=== PATIENT | female | born 1940 | race Caucasian/White ===

== ENCOUNTER 2018-07-14 10:08 | Inpatient (IN) | payer OTHER ==
[2018-07-11 16:28] VITALS: BMI 31.3
[~2018-07-14] VITALS: Ht 144.8 cm; Wt 65.9 kg
[2018-07-14] VITALS (25 sets, daily range): BP systolic 70–130; BP diastolic 41–75; PULSE 64–89; RESP 14–25; Ht 144.8 cm; Wt 65.9 kg
[~2018-07-14 10:08] MED LIST: BUPR-165 PO; EPHEDrine SULFATE 50 MG/5 ML SYG ONE; ESCI10TA PO; FOLI-49 PO; HYDR200T5 PO; LACT10SO5 PO; LACTATED RINGER'S 1,000 ML IV* ONE; LEVO75TA5 PO; LOSA50TA14 PO; OMEP40CA6 PO; PRED50TA PO; metroNIDAZOLE 500 MG/NS (PMX) 100 ML IVPB SCH
[2018-07-14] MEDS ORDERED: HYDR200T5 PO (11:27)
[2018-07-14] MEDS ORDERED: PRED1TAB2 PO (11:27)
[2018-07-14] MEDS ORDERED: MET25 PO (11:28)
[2018-07-14] MEDS ORDERED: ACET-2047 PO (11:38)
[2018-07-14] MEDS ORDERED: CHOL100062 PO (11:38)
[2018-07-14] MEDS ORDERED: NIAC500T81 PO (11:39)
[2018-07-14] MEDS ORDERED: LORA10TA3 PO (11:40)
[2018-07-14] MEDS ORDERED: SENN-120 PO (11:40)
[2018-07-14] MEDS ORDERED: CYAN500T46 PO (11:40)
--- NOTE | 2018-07-14 12:57 | PREAC ---
Date/Time of Note Date/Time of Note DATE: 07/14/18 TIME: 12:56 Anesthesia Eval and Record Evaluation Time Pre-Procedure Interview DATE: 07/14/18 TIME: 12:56 Age 77 Sex female NPO: 8 hrs Preoperative diagnosis Intestinal Obstruction Planned procedure Laparoscopic Assisted sigmoid resection Past Medical History Past Medical History: Includes Cardio: HTN Endo: Hypothyroid Musculoskeletal: Rheumatoid arthritis Psych: Depression Surgery & Anesthesia Issues No known issue Meds Anticoagulation: No Beta Gian within 24 hr: No Reason Beta Gian not given: Pt. not on B-Gian Reported Medications Loratadine* (Loratadine*) 10 Mg Tablet, 10 MG PO DAILY, #30 TAB 07/14/18 Sennosides* (Senna Lax*) 8.6 Mg Tablet, 1 TAB PO BID, TAB 07/14/18 Cyanocobalamin* (Vitamin B12*) 500 Mcg Tab, 1500 MCG PO DAILY, TAB 07/14/18 Niacin* (Niacin*) 500 Mg Tablet, 500 MG PO BID, TAB 07/14/18 Cholecalciferol* (Vitamin D3*) 1,000 Unit Tablet, 1000 UNIT PO DAILY, TAB 07/14/18 Acetaminophen* (Acetaminophen*) 650 Mg Tablet, 650 MG PO DAILY PRN for PAIN, #30 TAB 07/14/18 Methotrexate* (Methotrexate*) 2.5 Mg Tab, 7.5 MG PO EVERY SATURDAY, TAB 07/14/18 Hydroxychloroquine Sulfate* (Plaquenil*) 200 Mg Tab, 300 MG PO DAILY, TAB 07/14/18 Prednisone* (Prednisone*) 1 Mg Tablet, 8 MG PO DAILY, TAB 07/14/18 Lactulose* (Lactulose*) 10 Gm/15 Ml Solution, 20 GM PO DAILY PRN for CONSTIPATION, ML 07/11/18 Escitalopram Oxalate* (Lexapro*) 10 Mg Tablet, 10 MG PO DAILY, #30 TAB 07/11/18 Omeprazole* (Omeprazole*) 40 Mg Capsule.dr, 40 MG PO DAILY, #30 CAP 07/11/18 Bupropion Hcl* (Wellbutrin SR*) 150 Mg Tablet.sa, 150 MG PO DAILY, TAB.SA 07/11/18 Levothyroxine Sodium* (Levothyroxine Sodium*) 75 Mcg Tablet, 75 MCG PO BEFORE BREAKFAST, #30 TAB 07/11/18 Losartan Potassium* (Losartan Potassium*) 50 Mg Tablet, 50 MG PO DAILY, TAB 07/11/18 Discontinued Reported Medications Folic Acid* (Folic Acid*) 1 Mg Tablet, 1 MG PO DAILY, TAB 07/11/18 Prednisone* (Prednisone*) 50 Mg Tablet, 80 MG PO, TAB 07/11/18 Hydroxychloroquine Sulfate* (Plaquenil*) 200 Mg Tab, 300 MG PO DAILY, TAB 07/11/18 Current Medications Lactated Ringer's 1,000 ml @ 25 mls/hr Q24H ONCE IV* ; Start 07/14/18 at 06:00; Stop 07/15/18 at 05:59 Metronidazole 100 ml @ 100 mls/hr PRE-OP IVPB ; Start 07/14/18 at 06:00; Stop 07/14/18 at 15:00 Meds reviewed: Yes Allergies Coded Allergies: magnesium citrate (Verified Allergy, Intermediate, 07/14/18) Patient states she had tingling sensation on her lips. Allergies Reviewed: Yes Labs/Studies Labs Reviewed: Reviewed by anesthesiologist Blood Bank Test 07/14/18 10:27 Antibody Screen NEGATIVE Blood Type O POSITIVE test: N/A Studies: ECG (n/a), CXR (n/a) Pre-procedure Exam Airway: Adequate mouth opening, Adequate thyromental dist Mallampati: Mallampati II Teeth: Normal Lung: Normal Heart: Normal ASA Physical Status ASA physical status: 3 Emergency: None Planned Anesthetic General/MAC: ETT Neuraxial: Spinal Nerve block: TAP (bilateral) Planned Pain Management Sub-arachniod narcotics, Single shot nerve block, Parenteral pain med Pre-operative Attestations Prior to commencing anesthesia and surgery, the patient was re-evaluated, there was verification of: *The patient's identity *The results of appropriate recent lab work and preoperative vital signs *The above evaluation not changing prior to induction *Anesthetic plan, risk benefits, alternative and complications discussed with patient/family; questions answered; patient/family understands, accepts and wishes to proceed. KEVIN ROMAN MD Jul 14, 2018 12:57
[2018-07-14] MEDS ORDERED: ROCURONIUM 50 MG INJ ONE ×2 (13:00→15:11)
[2018-07-14] MEDS ORDERED: metroNIDAZOLE 500 MG/NS (PMX) 100 ML IVPB ONE (13:00)
[2018-07-14] MEDS ORDERED: FENTAnyl 50 MCG/ML VIAL ONE (13:00)
[2018-07-14] MEDS ORDERED: MIDAZOLAM 1 MG/ML 2 ML INJ ONE (13:00)
[2018-07-14] MEDS ORDERED: CEFAZOLIN 1 GM INJ ONE (13:00)
[2018-07-14] MEDS ORDERED: PROPOFOL 20 ML ONE (13:00)
[2018-07-14] MEDS ORDERED: ROPIVACAINE 0.2% 20 ML VIAL ONE (13:03)
--- NOTE | 2018-07-14 13:07 | HPN ---
Date/Time of Note Date/Time of Note DATE: 07/14/18 TIME: 13:07 Interval H&P Admission Note Pt. seen H&P reviewed: No system changes LUCI DIAZ MD Jul 14, 2018 13:07
[2018-07-14] MEDS ORDERED: HYDROCORTISONE 100 MG INJ ONE (13:21)
[2018-07-14] MEDS ORDERED: PHENYLephrine (100 MCG/ML) 10ML SYG ONE ×2 (13:29→15:08)
[2018-07-14] MEDS ORDERED: DEXAMETHASONE 4 MG/ML 5 ML INJ ONE (14:14)
[2018-07-14] MEDS ORDERED: ONDANSETRON 4 MG INJ ONE (14:14)
[2018-07-14] MEDS ORDERED: METOCLOPRAMIDE 10 MG INJ ONE (14:14)
[2018-07-14] MEDS ORDERED: LABETALOL HCL 20MG INJ IV PRN (14:30)
[2018-07-14] MEDS ORDERED: ONDANSETRON 4 MG INJ IV PRN ×2 (14:30→16:00)
[2018-07-14] MEDS ORDERED: EPHEDrine SULFATE 50 MG/5 ML SYG IV PRN (14:30)
[2018-07-14] MEDS ORDERED: ALBUMIN HUMAN 5% 250 ML IV PRN (14:30)
[2018-07-14] MEDS ORDERED: NALBUPHINE HCL (10 MG/1 ML) INJ IV PRN (14:30)
[2018-07-14] MEDS ORDERED: FENTAnyl 50 MCG/ML VIAL IV PRN ×2 (14:30)
[2018-07-14] MEDS ORDERED: NALOXONE (0.4 MG/ML) INJ IV PRN (14:30)
[2018-07-14] MEDS ORDERED: MEPERIDINE 25 MG INJ IV PRN (14:30)
[2018-07-14] MEDS ORDERED: hydrALAzine 20 MG INJ IV PRN (14:30)
[2018-07-14] MEDS ORDERED: METOCLOPRAMIDE 10 MG INJ IV PRN (14:30)
[2018-07-14] MEDS ORDERED: DIPHENHYDRAMINE 50 MG INJ IV PRN ×3 (14:30→16:00)
[2018-07-14] MEDS ORDERED: HYDROmorphONE 0.5 MG/0.5 ML SYG IV PRN ×2 (14:30)
[2018-07-14] MEDS ORDERED: morphine 2 MG INJ IV PRN ×2 (14:30)
[2018-07-14] MEDS ORDERED: HYDROmorphONE 1 MG/5 ML IV SYRINGE IV PRN ×2 (14:30)
[2018-07-14] MEDS ORDERED: HETASTARCH 6% NACL 500 ML ONE (15:07)
[2018-07-14] MEDS ORDERED: SUGAMMADEX SODIUM 200 MG/2 ML VIAL IV ONE (15:34)
[2018-07-14] MEDS ORDERED: D5W-0.45 NACL + KCL 10 MEQ 1,000 ML IV SCH (15:35)
--- NOTE | 2018-07-14 15:35 | SIPON ---
Date/Time of Note Date/Time of Note DATE: 07/14/18 TIME: 15:32 Operative Report Preoperative Diagnosis Sigmoid stricture with history of colitis Postoperative Diagnosis Sigmoid diverticulitis w/ sigmoid narrowing and inflammation into mesentary and pelvis Operation/Procedure Performed Laparoscopic -assisted LAR, with proctosigmoidoscopy Surgeon see signature line electrician assistant Daniel Kilgore MD Anesthesia: general Estimated blood loss: 150 - 200 ml's Transfusion Required none Specimen rectosigmoid Grafts/Implants none Complications none LUCI DIAZ MD Jul 14, 2018 15:35
--- NOTE | 2018-07-14 15:50 | PAC ---
Date/Time of Note Date/Time of Note DATE: 07/14/18 TIME: 15:50 Post-Anesthesia Notes Post-Anesthesia Note Last documented vital signs Vital Signs Date Temp Pulse Resp B/P (MAP) Pulse Ox O2 O2 Flow FiO2 Time Delivery Rate 07/14/18 98.1 85 18 130/64 98 Room Air 15:57 (86) Activity: WNL Respiratory function: WNL Cardiovascular function: WNL Mental status: Baseline Pain reasonably controlled: Yes Hydration appropriate: Yes Nausea/Vomiting absent: Yes KEVIN ROMAN MD Jul 14, 2018 15:50
--- NOTE | 2018-07-14 15:53 | CONS ---
Assessment/Plan Assessment/Plan Hospital Course (Demo Recall) 77 yo F with PMH Rheumatoid arthritis on chronic steroids and methotrexate, HTN, hypothyroid, depression, diverticula disease presented to [facility] for elective sigmoid resection secondary to diverticula disease with stricture Assessment/Plan (Daily) 1. Acute sigmoid diverticulitis with stricture s/p lap sigmoid resection POD #0 - General surgery to manage postoperative course - pain control 2. Rheumatoid arthritis - Will give dose of Solumedrol 50mg in 8 hours then continue home dose prednisone tomorrow. Discussed with Gen Surgery - Holding Methotrexate and Plaquenil at this time given recent surgical int ervention - Tylenol PRN for joint discomfort 3. Bullous Pemphigoid - rash appreciated on abdomen - continue steroids at this time 4. HTN - losartan on board with holding parameters 5. Depression - continue on Wellbutrin and Lexapro 6. Hypothyroidism - on levothyroxine 7. Allergic rhinitis - continue home Claritin dose 8. h/o hydrocephalus s/p shunt - stable 9. R hearing loss - h/o schwannoma 10. GERD - PPI 11. PMR - stable 12. Diet - per Gen Surgery 13. DVT ppx - SCD 14. Disposition - continue all current care and will monitor post operatively in med/surg Thank you for allowing me to participate in the care of your patient. Please call with any questions Consultation Date/Type/Reason Admit Date/Time Jul 14, 2018 at 10:14 Date of Consultation: Jul 14, 2018 Type of Consult Medicine Reason for Consultation Medical comanagement Date/Time of Note DATE: 07/14/18 TIME: 15:50 Hx of Present Illness 77 yo F with PMH Rheumatoid arthritis on chronic steroids and methotrexate, HTN, hypothyroid, depression, diverticula disease presented to [facility] for elective sigmoid resection secondary to sigmoid stricture with history of colitis. Internal medicine was consulted for assistance with management of chronic medical conditions. Patient has been experiencing GI issues for the past 2 months and underwent uneventful laparoscopic sigmoid resection. Patient was interviewed in PACU with complaints of abdominal discomfort but denies any chest pain, palpitations, shortness of breath, nausea, vomiting, or urinary issues. Constitutional: No chills, No febrile Eyes: No discharge ENT: congestion Respiratory: No cough, No shortness of breath, No wheezing Cardiovascular: No chest pain, No lightheadedness, No palpitations Gastrointestinal: pain; No constipation, No diarrhea, No nausea, No vomiting Genitourinary: no complaints Musculoskeletal: no complaints Skin: rash; No laceration Neurologic: No confusion, No headache, No syncope Endocrine: no complaints Lymphatic: no complaints Psychological: nl mood/affect Immunologic: no complaints Past Medical History Medical History: GERD, hypertension, hypothyroid, other (OA, RA, PMR, Bullous pemphigoid, diverticulosis, Barretts esphagus, hiatal hernia, deafness R ear, depression, hydrocephalus, R schwannoma, ) Home Meds Reported Medications Loratadine* (Loratadine*) 10 Mg Tablet, 10 MG PO DAILY, #30 TAB 07/14/18 Sennosides* (Senna Lax*) 8.6 Mg Tablet, 1 TAB PO BID, TAB 07/14/18 Cyanocobalamin* (Vitamin B12*) 500 Mcg Tab, 1500 MCG PO DAILY, TAB 07/14/18 Niacin* (Niacin*) 500 Mg Tablet, 500 MG PO BID, TAB 07/14/18 Cholecalciferol* (Vitamin D3*) 1,000 Unit Tablet, 1000 UNIT PO DAILY, TAB 07/14/18 Acetaminophen* (Acetaminophen*) 650 Mg Tablet, 650 MG PO DAILY PRN for PAIN, #30 TAB 07/14/18 Methotrexate* (Methotrexate*) 2.5 Mg Tab, 7.5 MG PO EVERY SATURDAY, TAB 07/14/18 Hydroxychloroquine Sulfate* (Plaquenil*) 200 Mg Tab, 300 MG PO DAILY, TAB 07/14/18 Prednisone* (Prednisone*) 1 Mg Tablet, 8 MG PO DAILY, TAB 07/14/18 Lactulose* (Lactulose*) 10 Gm/15 Ml Solution, 20 GM PO DAILY PRN for CONSTIPATION, ML 07/11/18 Escitalopram Oxalate* (Lexapro*) 10 Mg Tablet, 10 MG PO DAILY, #30 TAB 07/11/18 Omeprazole* (Omeprazole*) 40 Mg Capsule.dr, 40 MG PO DAILY, #30 CAP 07/11/18 Bupropion Hcl* (Wellbutrin SR*) 150 Mg Tablet.sa, 150 MG PO DAILY, TAB.SA 07/11/18 Levothyroxine Sodium* (Levothyroxine Sodium*) 75 Mcg Tablet, 75 MCG PO BEFORE BREAKFAST, #30 TAB 07/11/18 Losartan Potassium* (Losartan Potassium*) 50 Mg Tablet, 50 MG PO DAILY, TAB 07/11/18 Discontinued Reported Medications Folic Acid* (Folic Acid*) 1 Mg Tablet, 1 MG PO DAILY, TAB 07/11/18 Prednisone* (Prednisone*) 50 Mg Tablet, 80 MG PO, TAB 07/11/18 Hydroxychloroquine Sulfate* (Plaquenil*) 200 Mg Tab, 300 MG PO DAILY, TAB 07/11/18 Medications Current Medications Lactated Ringer's 1,000 ml @ 25 mls/hr Q24H ONCE IV* ; Start 07/14/18 at 06:00; Stop 07/15/18 at 05:59 Hydromorphone HCl (Dilaudid) 0.2 mg PACU PRN IV MILD PAIN 1-3; Start 07/14/18 at 14:30; Stop 07/14/18 at 19:00 Hydromorphone HCl (Dilaudid) 0.4 mg PACU PRN IV MOD PAIN 4-6; Start 07/14/18 at 14:30; Stop 07/14/18 at 19:00 Fentanyl (Sublimaze) 25 mcg PACU ORDER PRN IV MILD PAIN 1-3; Start 07/14/18 at 14:30; Stop 07/14/18 at 19:00 Fentanyl (Sublimaze) 50 mcg PACU ORDER PRN IV MOD PAIN 4-6; Start 07/14/18 at 14:30; Stop 07/14/18 at 19:00 Ondansetron HCl (Zofran Inj) 4 mg PACU ORDER PRN IV NAUSEA/VOMITING; Start 07/14/18 at 14:30; Stop 07/14/18 at 19:00 Metoclopramide HCl (Reglan) 10 mg PACU ORDER PRN IV NAUSEA/VOMITING; Start 07/14/18 at 14:30; Stop 07/14/18 at 19:00 Labetalol HCl (Labetalol) 5 mg PACU ORDER PRN IV HIGH BLOOD PRESSURE; Start 07/14/18 at 14:30; Stop 07/14/18 at 19:00 Hydralazine HCl (Apresoline) 5 mg PACU ORDER PRN IV HIGH BLOOD PRESSURE; Start 07/14/18 at 14:30; Stop 07/14/18 at 19:00 Ephedrine Sulfate 5 mg PACU ORDER PRN IV BLOOD PRESSURE SUPPORT; Start 07/14/18 at 14:30; Stop 07/14/18 at 19:00 Albumin Human 250 ml @ 750 mls/hr PACU ORDER PRN IV BP SUPPORT; Start 07/14/18 at 14:30; Stop 07/14/18 at 19:00 Meperidine HCl (Demerol) 25 mg PACU ORDER PRN IV .RIGORS; Start 07/14/18 at 14:30; Stop 07/14/18 at 19:00 Diphenhydramine HCl (Benadryl) 25 mg PACU ORDER PRN IV .PRURITUS; Start 07/14/18 at 14:30; Stop 07/14/18 at 19:00 Hydromorphone HCl (Dilaudid) 0.2 mg Q2H PRN IV .PAIN 1-5; Start 07/14/18 at 14:30 Hydromorphone HCl (Dilaudid) 0.4 mg Q2H PRN IV .PAIN 6-10; Start 07/14/18 at 14:30 Morphine Sulfate (morphine) 2 mg Q2H PRN IV .PAIN 1-5; Start 07/14/18 at 14:30 Morphine Sulfate (morphine) 4 mg Q2H PRN IV .PAIN 6-10; Start 07/14/18 at 14:30 Diphenhydramine HCl (Benadryl) 25 mg Q4H PRN IV .PRURITUS; Start 07/14/18 at 14:30 Nalbuphine HCl (Nubain) 10 mg Q4H PRN IV .PRURITUS; Start 07/14/18 at 14:30 Ondansetron HCl (Zofran Inj) 4 mg Q6H PRN IV .NAUSEA/VOMITING; Start 07/14/18 at 14:30 Naloxone HCl (Narcan) 0.2 mg Q2M PRN IV .RESP RATE; Start 07/14/18 at 14:30 Miscellaneous Information (* Miscellaneous Pharmacy Order) FENTANYL: 20 MCG SPI... GIVEN NEURAXIAL XX ; Start 07/14/18 at 14:30 Allergies: Coded Allergies: magnesium citrate (Verified Allergy, Intermediate, 07/14/18) Patient states she had tingling sensation on her lips. Past Surgical History Past Surgical Hx: other (tonsillectomy, R ovary and fallopian tube removal, bunion removal, cataract removal/lens implant, [employer] shunt 2016) Family History Significant Family History: no pertinent family hx Social History Alcohol Use: none Smoking Status: Never smoker Drug Use: none Exam/Review of Systems Exam Vitals Vital Signs Date Temp Pulse Resp B/P (MAP) Pulse Ox O2 O2 Flow FiO2 Time Delivery Rate 07/14/18 98.3 85 18 130/64 98 Room Air 12:47 (86) Intake and Output 07/13/18 07/13/18 07/14/18 1515:00 23:00 07:00 IntakeIntake Total 0 ml BalanceBalance 0 ml Exam General: Patient is laying in bed and answers questions appropriately. mild distress secondary to discomfort, lethargic Mentation: Patient is alert and oriented 4, Head: Normocephalic atraumatic Eyes: EOMI, pupils reactive to light Neck: Supple, nontender, midline Respiratory: Clear to auscultation bilaterally. no wheezing or rhonchi Cardiovascular: regular rate and rhythm, systolic murmur appreciated Gastrointestinal: soft, tender diffusely, nondistended, bowel sounds heard. Neurological: Moves all extremities spontaneously Skin: rash on abdominal area and chest Medications Medication Home medications reviewed Current Medications Lactated Ringer's 1,000 ml @ 25 mls/hr Q24H ONCE IV* ; Start 07/14/18 at 06:00; Stop 07/15/18 at 05:59 Hydromorphone HCl (Dilaudid) 0.2 mg PACU PRN IV MILD PAIN 1-3; Start 07/14/18 at 14:30; Stop 07/14/18 at 19:00 Hydromorphone HCl (Dilaudid) 0.4 mg PACU PRN IV MOD PAIN 4-6; Start 07/14/18 at 14:30; Stop 07/14/18 at 19:00 Fentanyl (Sublimaze) 25 mcg PACU ORDER PRN IV MILD PAIN 1-3; Start 07/14/18 at 14:30; Stop 07/14/18 at 19:00 Fentanyl (Sublimaze) 50 mcg PACU ORDER PRN IV MOD PAIN 4-6; Start 07/14/18 at 14:30; Stop 07/14/18 at 19:00 Ondansetron HCl (Zofran Inj) 4 mg PACU ORDER PRN IV NAUSEA/VOMITING; Start 07/14/18 at 14:30; Stop 07/14/18 at 19:00 Metoclopramide HCl (Reglan) 10 mg PACU ORDER PRN IV NAUSEA/VOMITING; Start 07/14/18 at 14:30; Stop 07/14/18 at 19:00 Labetalol HCl (Labetalol) 5 mg PACU ORDER PRN IV HIGH BLOOD PRESSURE; Start 07/14/18 at 14:30; Stop 07/14/18 at 19:00 Hydralazine HCl (Apresoline) 5 mg PACU ORDER PRN IV HIGH BLOOD PRESSURE; Start 07/14/18 at 14:30; Stop 07/14/18 at 19:00 Ephedrine Sulfate 5 mg PACU ORDER PRN IV BLOOD PRESSURE SUPPORT; Start 07/14/18 at 14:30; Stop 07/14/18 at 19:00 Albumin Human 250 ml @ 750 mls/hr PACU ORDER PRN IV BP SUPPORT; Start 07/14/18 at 14:30; Stop 07/14/18 at 19:00 Meperidine HCl (Demerol) 25 mg PACU ORDER PRN IV .RIGORS; Start 07/14/18 at 14:30; Stop 07/14/18 at 19:00 Diphenhydramine HCl (Benadryl) 25 mg PACU ORDER PRN IV .PRURITUS; Start 07/14/18 at 14:30; Stop 07/14/18 at 19:00 Hydromorphone HCl (Dilaudid) 0.2 mg Q2H PRN IV .PAIN 1-5; Start 07/14/18 at 14:30 Hydromorphone HCl (Dilaudid) 0.4 mg Q2H PRN IV .PAIN 6-10; Start 07/14/18 at 14:30 Morphine Sulfate (morphine) 2 mg Q2H PRN IV .PAIN 1-5; Start 07/14/18 at 14:30 Morphine Sulfate (morphine) 4 mg Q2H PRN IV .PAIN 6-10; Start 07/14/18 at 14:30 Diphenhydramine HCl (Benadryl) 25 mg Q4H PRN IV .PRURITUS; Start 07/14/18 at 14:30 Nalbuphine HCl (Nubain) 10 mg Q4H PRN IV .PRURITUS; Start 07/14/18 at 14:30 Ondansetron HCl (Zofran Inj) 4 mg Q6H PRN IV .NAUSEA/VOMITING; Start 07/14/18 at 14:30 Naloxone HCl (Narcan) 0.2 mg Q2M PRN IV .RESP RATE; Start 07/14/18 at 14:30 Miscellaneous Information (* Miscellaneous Pharmacy Order) FENTANYL: 20 MCG SPI... GIVEN NEURAXIAL XX ; Start 07/14/18 at 14:30 FATUMA KEARNS MD Jul 14, 2018 15:53
[2018-07-14] MEDS ORDERED: LORAZEPAM 2 MG INJ IV PRN (16:00)
[2018-07-14] MEDS ORDERED: metroNIDAZOLE 500 MG/NS (PMX) 100 ML IVPB SCH (16:00)
[2018-07-14] MEDS ORDERED: CEFAZOLIN 2 GM/50 ML (PMX) 50 ML IVPB SCH ×2 (16:00→22:00)
[2018-07-14] MEDS ORDERED: BUPIVACAINE 0.25% (MPF) 30 ML INJ INJ ONE (17:00)
[2018-07-14] MEDS: ACETAMINOPHEN 1000MG/100ML IV 100 ML IVPB SCH ×2 (17:14→22:47)
[2018-07-14] MEDS: D5W-0.45 NACL + KCL 20 MEQ 1,000 ML IV SCH (18:28)
[2018-07-14] MEDS: metroNIDAZOLE 500 MG/NS (PMX) 100 ML IVPB SCH (21:28)
[2018-07-14] MEDS: NIACIN 500 MG TAB PO SCH (21:28)
[2018-07-14] MEDS: ESCITALOPRAM 10 MG TAB PO SCH (23:11)
[2018-07-15] MEDS ORDERED: METHYLPREDNISOLONE 125 MG INJ IV ONE (00:05)
[2018-07-15 00:27] VITALS: BP 128/75; PULSE 87; RESP 18
[2018-07-15] MEDS: ACETAMINOPHEN 1000MG/100ML IV 100 ML IVPB SCH ×3 (03:56→16:19)
[2018-07-15] MEDS: D5W-0.45 NACL + KCL 20 MEQ 1,000 ML IV SCH ×3 (03:58→17:36)
[2018-07-15] MEDS: LEVOTHYROXINE 75 MCG TAB PO SCH (06:07)
[2018-07-15] MEDS: metroNIDAZOLE 500 MG/NS (PMX) 100 ML IVPB SCH ×2 (06:07→13:35)
[2018-07-15] MEDS: PANTOPRAZOLE (EC) 40 MG TAB PO SCH (06:07)
[2018-07-15 07:24] VITALS: BP 123/60; PULSE 96; RESP 18
--- NOTE | 2018-07-15 07:29 | PN ---
Date/Time of Note Date/Time of Note DATE: 07/15/18 TIME: 07:24 Assessment/Plan VTE Prophylaxis VTE Prophylaxis Intervention: LMWH, SCD's Lines/Catheters IV Catheter Type (from Nrsg): Peripheral IV Moreno in Place (from Nrsg): Yes Assessment/Plan Chief Complaint/Hosp Course POD #1 s/p diverticular resection on this 77 y/o White female w/ severe RA. Pt will return to her usual oral prednisone dose of 8 mg a day, after receiving perioperative IV steroids Assessment/Plan 3 POD #1 Stable and doing well. Advance to clear liquids, and dangle at bedside. PT to evaluate Subjective 24 Hr Interval Summary Pt is alert and oriented this am and comfortable. Pain is controlled and is having occ cramps. Elevated wbc due to IV steroids. No nausea and adequate urine output Constitutional: no complaints Pain Control: well controlled Exam/Review of Systems Vital Signs Vitals Vital Signs Date Temp Pulse Resp B/P (MAP) Pulse Ox O2 O2 Flow FiO2 Time Delivery Rate 07/15/18 98.1 87 18 128/75 99 00:27 (92) 07/14/18 Nasal 2.0 19:30 Cannula Intake and Output 07/14/18 07/14/18 07/15/18 1515:00 23:00 07:00 IntakeIntake Total 2700 ml 1200 ml OutputOutput Total 700 ml BalanceBalance 2000 ml 1200 ml Exam Constitutional: alert, oriented Psych: no complaints Gastrointestinal: soft, tender (appropriately) Results Result Diagram: 07/15/18 0451 07/15/18 0451 LUCI DIAZ MD Jul 15, 2018 07:28
--- NOTE | 2018-07-15 08:42 | OPR ---
DATE OF OPERATION: 07/14/2018 INDICATIONS: The patient is a 77-year-old white female who has been a patient of mine for the last 6 weeks. She presented to me in referral for obstructing colonic stricture. She had a barium enema, which revealed a severe narrowing of the rectosigmoid colon. Of note, as the patient has a history of an episode of ischemic colitis 4 years ago and also suffers from moderately severe rheumatoid arthritis and has been on steroids for several years. In the last 2 months she has been experiencing increasing abdominal discomfort and has had difficulty moving her bowels requiring her to change her diet to a more liquid form. Evaluation of her films revealed that she had severely compromised rectosigmoid colon and would require surgical intervention. She received preoperative evaluation by her sports agent, Dr. Lewis and her brazing machine operator automatic, Dr. Dubois at [facility]. She has been cleared for surgery and now presents for elective procedure. PREOPERATIVE DIAGNOSES: Intestinal obstruction and a history of ischemic colitis. 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 OPERATIONS PERFORMED: 1. Laparoscopic assisted rectosigmoid resection with primary stapled anastomosis. 2. Proctosigmoidoscopy. 3. Omental flap to pelvis INSPECTOR POISING: Dr. Daniel Kilgore. ANESTHESIA: General endotracheal anesthesia with spinal. FLUIDS: 1600 mL of crystalloid. ESTIMATED BLOOD LOSS: 200 mL. DRAINS: None. COMPLICATIONS: None. FINDINGS AND TECHNIQUE: The patient was brought to the operating room and following successful induction of anesthesia, was placed in the lithotomy position utilizing the Mahamed stirrups. She was carefully padded and protected with both her arms being tucked. A Moreno catheter was placed and then the patient's abdomen and perineum were prepped with a Betadine solution. She was then draped with sterile towels and drapes. Next, using a #10 scalpel blade, a low transverse incision was made and an old Pfannenstiel incision. The incision was approximately 7.5 cm in length. The incision was deepened with electrocautery unit until the fascia was exposed. The fascia was incised in a transverse fashion and subfascial flaps were created inferiorly and superiorly. The abdomen was then entered through the midline and a wound sheath for a Gelport hand assist device was placed ascertaining that there were no anterior abdominal wall adhesions. The Gelport was sealed over this and the abdomen insufflated to a pressure of 15 mmHg. Next, using a 10 mm 30-degree laparoscope the abdomen was carefully surveyed. The patient had a moderately large omentum. Both lobes of the liver were evaluated and found to be grossly normal. The transverse colon was somewhat looping in the midportion extended down towards the pelvis. The patient also had a prominent and mobile cecum. Looking into the pelvis, there was an inflammatory mass, which was very adherent to the underside of the uterus and the left adnexa. The patient had previously undergone salpingo-oophorectomy of the right side in the . To begin the procedure; however, we started by removing the Gelport and tilting the patient back into the Trendelenburg position because of the extensive nature of the adhesions. Palpation of the sigmoid colon revealed that the mid and upper sigmoid colon were grossly normal. The distal sigmoid colon; however, was quite thickened as was the mesentery. The intestines were packed off superiorly with laparotomy packs. The distal sigmoid was taken down along the white line of Toldt and reflected medially. We then took the dissection down into the pelvis where there were multiple very adherent adhesions between the anterior surface of the distal sigmoid colon and the underside of the uterus. We had dissected clear the left adnexal structures. Some of the dissection had to be done bluntly as there were a great deal of inflammatory reaction between the colon, mesentery, adnexal structures and the uterus. As we went down further and into the pelvis, there was also adherence between the proximal rectum and the pelvic structures, which required careful dissection first with Metzenbaum scissors, followed by blunt dissection. I elected to divide the colon roughly at its mid portion by utilizing the curved contour stapling device and then took the mesentery at the level of the mesenteric border with the bowel. There was still some concern that the patient had some vascular compromise because of her history. However, it became rapidly apparent that her colonic obstruction was due to diverticulitis and not ischemic colitis as the mesentery was from the bowel. We then entered the presacral space and mobilized the rectum all the way down below the peritoneal reflection. We were able to identify normal rectum at the junction between the mid and upper rectum. I then fired the curved contour stapler once again at the distal portion and the specimen was removed. Intraoperative consultation was obtained from pathology, who opened the specimen. The findings were most consistent with diverticulitis and there was no sign of any neoplastic or ischemic disease. We then thoroughly irrigated the pelvis with warm normal saline solution. We mobilized the stump somewhat more and then carefully evaluated the rectal remnant. It was healthy and adequate for anastomosis. Immobilized the more proximal sigmoid colon to do this, we reestablished pneumoperitoneum and reflected the proximal sigmoid colon and descending colon along the white line of Toldt laparoscopically. We then returned to the open portion of the procedure to the initial incision. The staple line was removed with the electrocautery unit and a pursestring suture of 2-0 Prolene was placed. The anvil of a #29 EEA stapler was placed within the lumen of the proximal sigmoid colon and secured. The unit assistant then went to the perineal position and after gently dilating the anal canal, passed the barrel of the EEA stapler up through the rectum. The post was advanced through the end of the rectum at the staple line. The two ends were then lined up and then this reassembled. The instrument was docked and then fired. This resulted in two intact colorectal donuts. Next, with the pelvis filled with irrigation fluid and the bowel proximally occluded air insufflation was accomplished below from a rigid proctoscope. No air leak was noted. During proctoscopy the lumen appeared to be healthy and normal. The anastomosis was also nonbleeding and located at approximately 12 cm. The bowel was then deflated. Gown and glove change was performed. After thorough irrigation, the omentum was mobilized and placed into the pelvis. We then made a careful check for laparotomy packs and obtained a correct sponge and needle count x2. The abdomen was then closed. The peritoneum was closed with a running 2-0 Vicryl suture. Each layer was then irrigated with warm normal saline solution. ON-Q pain catheters were then placed in the subfascial incision in the subfascial position through lateral stab incisions in the left lower quadrant. The fascia was then closed with a running 0 PDS suture. The subcutaneous layer was closed with interrupted sews of 2-0 Vicryl and the skin closed with a running 4-0 Monocryl subcuticular closure. Dermabond glue was applied to the incision on the ON-Q puncture site. The ON-Q catheters were also charged with 5 mL of 0.25% Marcaine plain in each catheter. We obtained an additional sponge and needle count, which was correct. The patient tolerated the procedure well, was transported to the recovery room in stable condition. Dictated By: LUCI DIAZ MD CH/NTS Conf#: [id number] DID#: [id number] CC: FATUMA KEARNS MD; LUCI DIAZ MD;*EndCC* MTDD
[2018-07-15] MEDS ORDERED: predniSONE INTENSOL (5 MG/ML PO SYG) PO SCH (09:00)
[2018-07-15] MEDS: CYANOCOBALAMIN 500 MCG TAB PO SCH (09:50)
[2018-07-15] MEDS: BUPROPION (SR) 150 MG TAB PO SCH (09:50)
[2018-07-15] MEDS: NIACIN 500 MG TAB PO SCH ×2 (09:50→20:20)
[2018-07-15] MEDS: LORATADINE 10 MG TAB PO SCH (09:51)
[2018-07-15] MEDS: predniSONE 5 MG TAB PO SCH (09:51)
[2018-07-15] MEDS: LOSARTAN 50 MG TAB PO SCH (09:51)
[2018-07-15] MEDS: CHOLECALCIFEROL 1,000 UNIT TAB PO SCH (09:51)
[2018-07-15] MEDS: ESCITALOPRAM 10 MG TAB PO SCH (09:51)
[2018-07-15] MEDS: predniSONE 1 MG TAB PO SCH (09:57)
[2018-07-15] MEDS: OXYCODONE/ACETAMINOPHEN (5/325) TAB PO PRN ×2 (10:00→20:22)
[2018-07-15] MEDS: CEFAZOLIN 2 GM/50 ML (PMX) 50 ML IVPB SCH ×2 (10:46→17:36)
[2018-07-15] MEDS: ENOXAPARIN 30 MG/0.3 ML SYG SC SCH (13:36)
[2018-07-15 14:25] VITALS: BP 98/56; PULSE 83; RESP 17
--- NOTE | 2018-07-15 14:46 | CONS ---
Assessment/Plan Assessment/Plan Hospital Course (Demo Recall) 77 yo F with PMH Rheumatoid arthritis on chronic steroids and methotrexate, HTN, hypothyroid, depression, diverticula disease presented to [facility] for elective sigmoid resection secondary to diverticula disease with stricture Assessment/Plan (Daily) 1. Acute sigmoid diverticulitis with stricture s/p lap sigmoid resection POD #1 - doing well post operatively and tolerating clear diet - General surgery to manage postoperative course - pain control 2. Rheumatoid arthritis- stable - continue on Prednisone 8mg. states she would like to see how she does off methotrexate. Discussed she needs to speak with outpatient physician but will hold medication for now during recovery - Tylenol PRN for joint discomfort 3. Bullous Pemphigoid - continue steroids at this time 4. HTN - stable - continue home medication 5. Depression - continue on Wellbutrin and Lexapro 6. Hypothyroidism - on levothyroxine 7. Allergic rhinitis - continue home Claritin dose 8. h/o hydrocephalus s/p shunt - stable 9. R hearing loss - h/o schwannoma 10. GERD - PPI 11. Disposition - Diet per Primary Consultation Date/Type/Reason Admit Date/Time Jul 14, 2018 at 10:14 Initial Consult Date 07/14/18 Type of Consult Medicine Date/Time of Note DATE: 07/15/18 TIME: 14:41 24 HR Interval Summary Free Text/Dictation Patient states shes feeling much better this am and tolerating clear diet. Admits cranberry juice is irritating her abdomen and requesting apple juice to mix with cranberry. No acute overnight events. Exam/Review of Systems Exam Vitals Vital Signs Date Temp Pulse Resp B/P (MAP) Pulse Ox O2 O2 Flow FiO2 Time Delivery Rate 07/15/18 98.5 83 17 98/56 (70) 95 Room Air 14:25 07/14/18 2.0 19:30 Intake and Output 07/14/18 07/14/18 07/15/18 1515:00 23:00 07:00 IntakeIntake Total 2700 ml 1200 ml OutputOutput Total 700 ml BalanceBalance 2000 ml 1200 ml Exam General: Patient is laying in bed and answers questions appropriately Neck: Supple Respiratory: Clear to auscultation bilaterally. no wheezing or rhonchi Cardiovascular: regular rate and rhythm, systolic murmur appreciated Gastrointestinal: soft, mildly tender, nondistended, bowel sounds heard. Neurological: Moves all extremities spontaneously Skin: rash on abdominal area and chest Results Result Diagram: 07/15/18 0451 07/15/18 0451 Results 24hrs Laboratory Tests Test 07/14/18 16:08 07/15/18 04:51 07/15/18 08:27 Hemoglobin 8.9 L 8.4 L Hematocrit 28.1 L 26.5 L Sodium Level 137 133 L Potassium Level 3.6 4.1 Chloride Level 104 104 Carbon Dioxide Level 23 24 Anion Gap 10 5 Blood Urea Nitrogen 7 6 L Creatinine 0.57 0.53 Est Glomerular Filtrat Rate mL/min Glucose Level 103 178 Calcium Level 8.1 L 8.1 L White Blood Count 18.3 H Red Blood Count 2.76 L Mean Corpuscular Volume 96.0 Mean Corpuscular Hemoglobin 30.4 Mean Corpuscular 31.7 L Hemoglobin Concent Red Cell Distribution Width 17.4 H Platelet Count 263 Mean Platelet Volume 9.6 Immature Granulocytes % 0.300 Neutrophils % 94.6 H Lymphocytes % 1.1 L Monocytes % 3.9 Eosinophils % 0.0 Basophils % 0.1 Nucleated Red Blood Cells % 0.0 Immature Granulocytes # 0.060 H Neutrophils # 17.3 H Lymphocytes # 0.2 L Monocytes # 0.7 Eosinophils # 0.0 Basophils # 0.0 Nucleated Red Blood Cells # 0.0 Prothrombin Time 13.5 Prothrombin Time Ratio 1.1 INR International 1.02 Normalized Ratio Lab Scanned Report REFERENCE LAB Medications Medication Current Medications Hydromorphone HCl (Dilaudid) 0.2 mg Q2H PRN IV .PAIN 1-5; Start 07/14/18 at 14:30 Hydromorphone HCl (Dilaudid) 0.4 mg Q2H PRN IV .PAIN 6-10; Start 07/14/18 at 14:30 Nalbuphine HCl (Nubain) 10 mg Q4H PRN IV .PRURITUS; Start 07/14/18 at 14:30 Ondansetron HCl (Zofran Inj) 4 mg Q6H PRN IV .NAUSEA/VOMITING; Start 07/14/18 at 14:30 Naloxone HCl (Narcan) 0.2 mg Q2M PRN IV .RESP RATE; Start 07/14/18 at 14:30 Miscellaneous Information (* Miscellaneous Pharmacy Order) FENTANYL: 20 MCG SPI... GIVEN NEURAXIAL XX ; Start 07/14/18 at 14:30 Hydromorphone HCl (Dilaudid) 0.5 mg Q2 PRN IV PAIN LEVEL 6-10; Start 07/14/18 at 16:00 Diphenhydramine HCl (Benadryl) 25 mg Q6H PRN IV ITCHING; Start 07/14/18 at 16:00 Ondansetron HCl (Zofran Inj) 4 mg Q6H PRN IV NAUSEA AND/OR VOMITING; Start 07/14/18 at 16:00 Pantoprazole (Protonix Tab) 40 mg DAILY@06 PO Last administered on 07/15/18 06:07; Admin Dose 40 MG; Start 07/15/18 at 06:00 Potassium Chloride/Dextrose/ Sod Cl 1,000 ml @ 100 mls/hr Q10H IV Last administered on 07/15/18 03:58; Admin Dose 100 MLS/HR; Start 07/14/18 at 18:30 Enoxaparin Sodium (Lovenox) 30 mg DAILY@07 SC Last administered on 07/15/18 13:36; Admin Dose 30 MG; Start 07/15/18 at 12:00 Lorazepam (Ativan) 0.5 mg HS MAY REPEAT X 1 PRN IV INSOMNIA; Start 07/14/18 at 16:00 Acetaminophen 100 ml @ 400 mls/hr Q6H IVPB Last administered on 07/15/18 10:03; Admin Dose 400 MLS/HR; Start 07/14/18 at 16:00; Stop 07/16/18 at 15:59 Bupropion HCl (Wellbutrin Sr) 150 mg DAILY PO Last administered on 07/15/18 09:50; Admin Dose 150 MG; Start 07/15/18 at 09:00 Cholecalciferol (Vitamin D) 1,000 unit DAILY PO Last administered on 07/15/18 09:51; Admin Dose 1,000 UNIT; Start 07/15/18 at 09:00 Cyanocobalamin (Vitamin B12) 1,500 mcg DAILY PO Last administered on 07/15/18 09:50; Admin Dose 1,500 MCG; Start 07/15/18 at 09:00 Escitalopram Oxalate (Lexapro) 10 mg DAILY PO Last administered on 07/15/18 09:51; Admin Dose 10 MG; Start 07/14/18 at 22:00 Levothyroxine Sodium (Synthroid) 75 mcg BEFORE BREAKFAST PO Last administered on 07/15/18 06:07; Admin Dose 75 MCG; Start 07/15/18 at 07:00 Loratadine (Claritin) 10 mg DAILY PO Last administered on 07/15/18 09:51; Admin Dose 10 MG; Start 07/15/18 at 09:00 Losartan Potassium (Cozaar) 50 mg DAILY PO Last administered on 07/15/18 09:51; Admin Dose 50 MG; Start 07/15/18 at 09:00 Niacin (Niacin) 500 mg BID PO Last administered on 07/15/18 09:50; Admin Dose 500 MG; Start 07/14/18 at 21:00 Metronidazole 100 ml @ 100 mls/hr Q8 IVPB Last administered on 07/15/18 13:35; Admin Dose 100 MLS/HR; Start 07/14/18 at 22:00; Stop 07/15/18 at 14:59 Cefazolin Sodium/ Dextrose 50 ml @ 100 mls/hr Q8H IVPB Last administered on 07/15/18 10:46; Admin Dose 100 MLS/HR; Start 07/15/18 at 10:00; Stop 07/15/18 at 18:29 Oxycodone/ Acetaminophen (Percocet (5/ 325)) 1 tab Q4H PRN PO PAIN Last administered on 07/15/18 10:00; Admin Dose 1 TAB; Start 07/15/18 at 07:30 Prednisone (Prednisone) 5 mg DAILY PO Last administered on 07/15/18 09:51; Admin Dose 5 MG; Start 07/15/18 at 09:00 Prednisone (Prednisone) 3 mg DAILY PO Last administered on 07/15/18 09:57; Admin Dose 3 MG; Start 07/15/18 at 09:00 FATUMA KEARNS MD Jul 15, 2018 14:46
[2018-07-15 20:56] VITALS: BP 110/56; PULSE 90; RESP 18
[2018-07-16 02:13] VITALS: BP 114/58; PULSE 102; RESP 19
[2018-07-16] MEDS: PANTOPRAZOLE (EC) 40 MG TAB PO SCH (06:01)
[2018-07-16] MEDS: LEVOTHYROXINE 75 MCG TAB PO SCH (06:01)
[2018-07-16] MEDS: ENOXAPARIN 30 MG/0.3 ML SYG SC SCH (06:02)
[2018-07-16] MEDS ORDERED: KETOROLAC 15 MG INJ IV ONE (06:31)
--- NOTE | 2018-07-16 06:39 | PN ---
Date/Time of Note Date/Time of Note DATE: 07/16/18 TIME: 06:37 Assessment/Plan VTE Prophylaxis VTE Prophylaxis Intervention: ambulation, LMWH, SCD's Lines/Catheters IV Catheter Type (from Nrsg): Saline Lock Moreno in Place (from Nrsg): Yes Assessment/Plan Chief Complaint/Hosp Course POD #1 s/p diverticular resection on this 77 y/o White female w/ severe RA. Pt will return to her usual oral prednisone dose of 8 mg a day, after receiving perioperative IV steroids POD #2 Doing well, passing gas Assessment/Plan 1. Advance to full liquids 2. Increase ambulation 3. Add Toradol x 3 doses Subjective 24 Hr Interval Summary Pt slept well. Passing gas, and ambulated some yesterday. Pain control is good w/ percocet. VSS Labs are pending Constitutional: no complaints, flatus Feeding: clear Pain Control: well controlled Exam/Review of Systems Vital Signs Vitals Vital Signs Date Temp Pulse Resp B/P (MAP) Pulse Ox O2 O2 Flow FiO2 Time Delivery Rate 07/16/18 98.9 102 19 114/58 96 02:13 (76) 07/15/18 Room Air 14:25 07/14/18 2.0 19:30 Intake and Output 07/15/18 07/15/18 07/16/18 1414:59 22:59 06:59 IntakeIntake Total 1110 ml 1630 ml 300 ml OutputOutput Total 1450 ml 350 ml BalanceBalance 1110 ml 180 ml -50 ml Exam Constitutional: alert, oriented Psych: no complaints Gastrointestinal: soft, tender (appropriate for post op) Results Result Diagram: 07/16/18 0457 07/16/18 0457 LUCI DIAZ MD Jul 16, 2018 06:39
[2018-07-16 07:44] VITALS: BP 93/54; PULSE 100; RESP 18
[2018-07-16] MEDS: KETOROLAC 15 MG INJ IV SCH ×2 (08:27→14:00)
[2018-07-16] MEDS: predniSONE 5 MG TAB PO SCH (08:32)
[2018-07-16] MEDS: predniSONE 1 MG TAB PO SCH (08:32)
[2018-07-16] MEDS: CHOLECALCIFEROL 1,000 UNIT TAB PO SCH (08:33)
[2018-07-16] MEDS: BUPROPION (SR) 150 MG TAB PO SCH (08:33)
[2018-07-16] MEDS: CYANOCOBALAMIN 500 MCG TAB PO SCH (08:33)
[2018-07-16] MEDS: LOSARTAN 50 MG TAB PO SCH (08:34)
[2018-07-16] MEDS: NIACIN 500 MG TAB PO SCH ×2 (08:34→21:30)
[2018-07-16] MEDS: LORATADINE 10 MG TAB PO SCH (08:34)
[2018-07-16] MEDS: ESCITALOPRAM 10 MG TAB PO SCH (08:34)
[2018-07-16] MEDS: D5W-0.45 NACL + KCL 20 MEQ 1,000 ML IV SCH (09:49)
[2018-07-16 14:23] VITALS: BP 124/77; PULSE 107; RESP 18
--- NOTE | 2018-07-16 15:50 | CONS ---
Assessment/Plan Assessment/Plan Hospital Course (Demo Recall) 77 yo F with PMH Rheumatoid arthritis on chronic steroids and methotrexate, HTN, hypothyroid, depression, diverticula disease presented to [facility] for elective sigmoid resection secondary to diverticula disease with stricture Assessment/Plan (Daily) 1. Iron deficiency anemia - hgb low this am and repeat was 7.8. no signs of acute bleeding. Will hold off on transfusions at this time - Iron studies noted with low iron levels. Will give a dose of IV iron. Will need to continue on PO as outpatient 2. Rheumatoid arthritis- stable - continue on Prednisone 8mg daily. - hold MTX for now - Tylenol PRN for joint discomfort 3. Acute sigmoid diverticulitis with stricture s/p lap sigmoid resection POD #2 - doing well post operatively and tolerating current diet - General surgery to manage postoperative course - pain control 4. Bullous Pemphigoid - continue steroids at this time 5. HTN - stable - continue home medication 6. Depression- stable - continue on Wellbutrin and Lexapro 7. Hypothyroidism - on levothyroxine 8. Allergic rhinitis - continue home Claritin dose 9. h/o hydrocephalus s/p shunt - stable 10. R hearing loss - h/o schwannoma 11. GERD - PPI 12. Disposition - continue advancing diet per Gen Surgery - monitor H/H Consultation Date/Type/Reason Admit Date/Time Jul 14, 2018 at 10:14 Initial Consult Date 07/14/18 Type of Consult Medicine Date/Time of Note DATE: 07/16/18 TIME: 15:46 24 HR Interval Summary Free Text/Dictation Patient states shes feeling better and passing gas this am. Tolerating full liquid diet and excited when she will be transitioned to normal food. Exam/Review of Systems Exam Vitals Vital Signs Date Temp Pulse Resp B/P (MAP) Pulse Ox O2 O2 Flow FiO2 Time Delivery Rate 07/16/18 98.1 107 18 124/77 100 Room Air 14:23 (93) 07/14/18 2.0 19:30 Intake and Output 07/15/18 07/15/18 07/16/18 1515:00 23:00 07:00 IntakeIntake Total 1110 ml 1630 ml 300 ml OutputOutput Total 1450 ml 350 ml BalanceBalance 1110 ml 180 ml -50 ml Exam General: Patient is sitting in chair at bedside, no acute distress Neck: Supple Respiratory: Clear to auscultation bilaterally. no wheezing or rhonchi Cardiovascular: regular rate and rhythm, systolic murmur appreciated Gastrointestinal: soft, mildly tender, nondistended, bowel sounds heard. Neurological: Moves all extremities spontaneously Results Result Diagram: 07/16/18 1208 07/16/18 0457 Results 24hrs Laboratory Tests Test 07/16/18 04:55 07/16/18 04:57 07/16/18 12:08 Iron Level 15 L Total Iron Binding Capacity 239 L Percent Iron Saturation 6 L White Blood Count 18.2 H Red Blood Count 2.35 L Hemoglobin 7.1 L 7.8 L Hematocrit 23.0 L 25.0 L Mean Corpuscular Volume 97.9 Mean Corpuscular Hemoglobin 30.2 Mean Corpuscular Hemoglobin Concent 30.9 L Red Cell Distribution Width 18.1 H Platelet Count 233 Mean Platelet Volume 10.0 Immature Granulocytes % 0.700 H Neutrophils % 86.6 H Lymphocytes % 4.5 L Monocytes % 8.1 Eosinophils % 0.0 Basophils % 0.1 Nucleated Red Blood Cells % 0.0 Immature Granulocytes # 0.130 H Neutrophils # 15.8 H Lymphocytes # 0.8 Monocytes # 1.5 H Eosinophils # 0.0 Basophils # 0.0 Nucleated Red Blood Cells # 0.0 Sodium Level 136 Potassium Level 3.8 Chloride Level 107 Carbon Dioxide Level 24 Anion Gap 5 Blood Urea Nitrogen 8 Creatinine 0.57 Glucose Level 77 # Calcium Level 8.3 L Phosphorus Level 2.7 Magnesium Level 1.8 Albumin 2.4 L Medications Medication Current Medications Hydromorphone HCl (Dilaudid) 0.2 mg Q2H PRN IV .PAIN 1-5; Start 07/14/18 at 14:30 Hydromorphone HCl (Dilaudid) 0.4 mg Q2H PRN IV .PAIN 6-10; Start 07/14/18 at 14:30 Nalbuphine HCl (Nubain) 10 mg Q4H PRN IV .PRURITUS; Start 07/14/18 at 14:30 Ondansetron HCl (Zofran Inj) 4 mg Q6H PRN IV .NAUSEA/VOMITING; Start 07/14/18 at 14:30 Naloxone HCl (Narcan) 0.2 mg Q2M PRN IV .RESP RATE; Start 07/14/18 at 14:30 Miscellaneous Information (* Miscellaneous Pharmacy Order) FENTANYL: 20 MCG SPI... GIVEN NEURAXIAL XX ; Start 07/14/18 at 14:30 Hydromorphone HCl (Dilaudid) 0.5 mg Q2 PRN IV PAIN LEVEL 6-10; Start 07/14/18 at 16:00 Diphenhydramine HCl (Benadryl) 25 mg Q6H PRN IV ITCHING; Start 07/14/18 at 16 :00 Ondansetron HCl (Zofran Inj) 4 mg Q6H PRN IV NAUSEA AND/OR VOMITING; Start 07/14/18 at 16:00 Pantoprazole (Protonix Tab) 40 mg DAILY@06 PO Last administered on 07/16/18 06:01; Admin Dose 40 MG; Start 07/15/18 at 06:00 Potassium Chloride/Dextrose/ Sod Cl 1,000 ml @ 100 mls/hr Q10H IV Last ad ministered on 07/15/18at 17:36; Admin Dose 100 MLS/HR; Start 07/14/18 at 18:30 Enoxaparin Sodium (Lovenox) 30 mg DAILY@07 SC Last administered on 07/16/18 06:02; Admin Dose 30 MG; Start 07/15/18 at 12:00 Lorazepam (Ativan) 0.5 mg HS MAY REPEAT X 1 PRN IV INSOMNIA; Start 07/14/18 at 16:00 Bupropion HCl (Wellbutrin Sr) 150 mg DAILY PO Last administered on 07/16/18 08:33; Admin Dose 150 MG; Start 07/15/18 at 09:00 Cholecalciferol (Vitamin D) 1,000 unit DAILY PO Last administered on 07/16/18 08:33; Admin Dose 1,000 UNIT; Start 07/15/18 at 09:00 Cyanocobalamin (Vitamin B12) 1,500 mcg DAILY PO Last administered on 07/16/18 08:33; Admin Dose 1,500 MCG; Start 07/15/18 at 09:00 Escitalopram Oxalate (Lexapro) 10 mg DAILY PO Last administered on 07/16/18 08:34; Admin Dose 10 MG; Start 07/14/18 at 22:00 Levothyroxine Sodium (Synthroid) 75 mcg BEFORE BREAKFAST PO Last administered on 07/16/18 06:01; Admin Dose 75 MCG; Start 07/15/18 at 07:00 Loratadine (Claritin) 10 mg DAILY PO Last administered on 07/16/18 08:34; Admin Dose 10 MG; Start 07/15/18 at 09:00 Losartan Potassium (Cozaar) 50 mg DAILY PO Last administered on 07/16/18 08:34; Admin Dose 50 MG; Start 07/15/18 at 09:00 Niacin (Niacin) 500 mg BID PO Last administered on 07/16/18 08:34; Admin Dose 500 MG; Start 07/14/18 at 21:00 Oxycodone/ Acetaminophen (Percocet (5/ 325)) 1 tab Q4H PRN PO PAIN Last administered on 07/15/18 20:22; Admin Dose 1 TAB; Start 07/15/18 at 07:30 Prednisone (Prednisone) 5 mg DAILY PO Last administered on 07/16/18 08:32; Admin Dose 5 MG; Start 07/15/18 at 09:00 Prednisone (Prednisone) 3 mg DAILY PO Last administered on 07/16/18 08:32; Admin Dose 3 MG; Start 07/15/18 at 09:00 FATUMA KEARNS MD Jul 16, 2018 15:50
[2018-07-16] MEDS ORDERED: SOD FERRIC GLUC COMPLX 125 MG in SOD CHLORIDE 0.9% 100 ML IVPB ONE (17:00)
[2018-07-16 20:11] VITALS: BP 140/63; PULSE 94; RESP 20
[2018-07-17 02:01] VITALS: BP 137/70; PULSE 89; RESP 20
[2018-07-17] MEDS: LEVOTHYROXINE 75 MCG TAB PO SCH (06:51)
[2018-07-17] MEDS: PANTOPRAZOLE (EC) 40 MG TAB PO SCH (06:51)
[2018-07-17] MEDS: ENOXAPARIN 30 MG/0.3 ML SYG SC SCH (06:53)
[2018-07-17 07:43] VITALS: BP 113/60; PULSE 96; RESP 18
[2018-07-17] MEDS ORDERED: SOD CHLORIDE 0.9% 250 ML IV* ONE (09:00)
[2018-07-17] MEDS ORDERED: FUROSEMIDE 40 MG INJ IV SCH (09:00)
--- NOTE | 2018-07-17 09:10 | PN ---
Date/Time of Note Date/Time of Note DATE: 07/17/18 TIME: 09:06 Assessment/Plan VTE Prophylaxis Risk score (from Nsg)>0 risk: 8 SCD applied (from Nsg): Yes Pharmacological prophylaxis: LMWH Lines/Catheters IV Catheter Type (from Nrsg): Peripheral IV Urinary Cath still in place: No Assessment/Plan Hospital Course [id number] Woman h/o stenotic sigmoid s/p sigmoid resection now POD 3. Doing very well. Tolerating fulls, passing gas and stool, pain controlled, urinating well. VS OK. Hct 21.7 this AM. Does not appear to be actively bleeding but will give 2U PRBC over the course of the day (repeat CBC at 1000 pending, will cancel if value is much higher). Encouraging OOB, advancing to regular diet, get CBC after transfuion. PT to ambulate and make recommendation for dispo as may be able to go tomorrow. Appreciate medicine following. Result Diagram: 07/17/18 0446 07/17/18 0446 Results 24hrs Laboratory Tests Test 07/16/18 12:08 07/16/18 16:13 07/17/18 04:46 Hemoglobin 7.8 L 7.7 L 6.9 *L Hematocrit 25.0 L 24.6 L 21.7 L White Blood Count 11.8 #H Red Blood Count 2.21 L Mean Corpuscular Volume 98.2 Mean Corpuscular Hemoglobin 31.2 Mean Corpuscular Hemoglobin Concent 31.8 L Red Cell Distribution Width 17.7 H Platelet Count 232 Mean Platelet Volume 10.4 Immature Granulocytes % 0.600 H Neutrophils % 78.3 H Lymphocytes % 8.7 L Monocytes % 11.0 Eosinophils % 1.2 Basophils % 0.2 Nucleated Red Blood Cells % 0.0 Immature Granulocytes # 0.070 H Neutrophils # 9.2 H Lymphocytes # 1.0 Monocytes # 1.3 H Eosinophils # 0.1 Basophils # 0.0 Nucleated Red Blood Cells # 0.0 Sodium Level 135 Potassium Level 3.6 Chloride Level 106 Carbon Dioxide Level 24 Anion Gap 5 Subjective 24 Hr Interval Summary Constitutional: no complaints Respiratory: no complaints Gastrointestinal: pain (mild, controlled with meds; passing gas and stool) Genitourinary: no complaints (frequent urination) Exam/Review of Systems Exam Vitals Vital Signs Date Temp Pulse Resp B/P (MAP) Pulse Ox O2 O2 Flow FiO2 Time Delivery Rate 07/17/18 98.0 96 18 113/60 99 Room Air 07:43 (77) 07/14/18 2.0 19:30 Intake and Output 07/16/18 07/16/18 07/17/18 1515:00 23:00 07:00 IntakeIntake Total 300 ml 1700 ml OutputOutput Total 200 ml BalanceBalance 100 ml 1700 ml Constitutional: alert, oriented Respiratory: clear to auscultation Cardiovascular: regular rate and rhythm Gastrointestinal: soft (wound C/D/I, ND, ONQ catheters in place) Extremities: other (-C/C/E) Results Results 24hrs Laboratory Tests Test 07/16/18 12:08 07/16/18 16:13 07/17/18 04:46 Hemoglobin 7.8 L 7.7 L 6.9 *L Hematocrit 25.0 L 24.6 L 21.7 L White Blood Count 11.8 #H Red Blood Count 2.21 L Mean Corpuscular Volume 98.2 Mean Corpuscular Hemoglobin 31.2 Mean Corpuscular Hemoglobin Concent 31.8 L Red Cell Distribution Width 17.7 H Platelet Count 232 Mean Platelet Volume 10.4 Immature Granulocytes % 0.600 H Neutrophils % 78.3 H Lymphocytes % 8.7 L Monocytes % 11.0 Eosinophils % 1.2 Basophils % 0.2 Nucleated Red Blood Cells % 0.0 Immature Granulocytes # 0.070 H Neutrophils # 9.2 H Lymphocytes # 1.0 Monocytes # 1.3 H Eosinophils # 0.1 Basophils # 0.0 Nucleated Red Blood Cells # 0.0 Sodium Level 135 Potassium Level 3.6 Chloride Level 106 Carbon Dioxide Level 24 Anion Gap 5 Medications Medication Current Medications Hydromorphone HCl (Dilaudid) 0.2 mg Q2H PRN IV .PAIN 1-5; Start 07/14/18 at 14:30 Hydromorphone HCl (Dilaudid) 0.4 mg Q2H PRN IV .PAIN 6-10; Start 07/14/18 at 14:30 Nalbuphine HCl (Nubain) 10 mg Q4H PRN IV .PRURITUS; Start 07/14/18 at 14:30 Ondansetron HCl (Zofran Inj) 4 mg Q6H PRN IV .NAUSEA/VOMITING; Start 07/14/18 at 14:30 Naloxone HCl (Narcan) 0.2 mg Q2M PRN IV .RESP RATE; Start 07/14/18 at 14:30 Miscellaneous Information (* Miscellaneous Pharmacy Order) FENTANYL: 20 MCG SPI... GIVEN NEURAXIAL XX ; Start 07/14/18 at 14:30 Hydromorphone HCl (Dilaudid) 0.5 mg Q2 PRN IV PAIN LEVEL 6-10; Start 07/14/18 at 16:00 Diphenhydramine HCl (Benadryl) 25 mg Q6H PRN IV ITCHING; Start 07/14/18 at 16:00 Ondansetron HCl (Zofran Inj) 4 mg Q6H PRN IV NAUSEA AND/OR VOMITING; Start 07/14/18 at 16:00 Pantoprazole (Protonix Tab) 40 mg DAILY@06 PO Last administered on 07/17/18 06:51; Admin Dose 40 MG; Start 07/15/18 at 06:00 Enoxaparin Sodium (Lovenox) 30 mg DAILY@07 SC Last administered on 07/17/18 06:53; Admin Dose 30 MG; Start 07/15/18 at 12:00 Lorazepam (Ativan) 0.5 mg HS MAY REPEAT X 1 PRN IV INSOMNIA; Start 07/14/18 at 16:00 Bupropion HCl (Wellbutrin Sr) 150 mg DAILY PO Last administered on 07/16/18 08:33; Admin Dose 150 MG; Start 07/15/18 at 09:00 Cholecalciferol (Vitamin D) 1,000 unit DAILY PO Last administered on 07/16/18 08:33; Admin Dose 1,000 UNIT; Start 07/15/18 at 09:00 Cyanocobalamin (Vitamin B12) 1,500 mcg DAILY PO Last administered on 07/16/18 08:33; Admin Dose 1,500 MCG; Start 07/15/18 at 09:00 Escitalopram Oxalate (Lexapro) 10 mg DAILY PO Last administered on 07/16/18 08:34; Admin Dose 10 MG; Start 07/14/18 at 22:00 Levothyroxine Sodium (Synthroid) 75 mcg BEFORE BREAKFAST PO Last administered on 07/17/18 06:51; Admin Dose 75 MCG; Start 07/15/18 at 07:00 Loratadine (Claritin) 10 mg DAILY PO Last administered on 07/16/18 08:34; Admin Dose 10 MG; Start 07/15/18 at 09:00 Losartan Potassium (Cozaar) 50 mg DAILY PO Last administered on 07/16/18 08:34; Admin Dose 50 MG; Start 07/15/18 at 09:00 Niacin (Niacin) 500 mg BID PO Last administered on 07/16/18 21:30; Admin Dose 500 MG; Start 07/14/18 at 21:00 Oxycodone/ Acetaminophen (Percocet (5/ 325)) 1 tab Q4H PRN PO PAIN Last administered on 07/15/18 20:22; Admin Dose 1 TAB; Start 07/15/18 at 07:30 Prednisone (Prednisone) 5 mg DAILY PO Last administered on 07/16/18 08:32; Admin Dose 5 MG; Start 07/15/18 at 09:00 Prednisone (Prednisone) 3 mg DAILY PO Last administered on 07/16/18 08:32; Admin Dose 3 MG; Start 07/15/18 at 09:00 TAMMY FLORES M.D. Jul 17, 2018 09:10
[2018-07-17] MEDS ORDERED: POTASSIUM CHLORIDE (SR) 20 MEQ TAB PO STA (09:19)
[2018-07-17] MEDS: predniSONE 5 MG TAB PO SCH (09:40)
[2018-07-17] MEDS: CYANOCOBALAMIN 500 MCG TAB PO SCH (09:40)
[2018-07-17] MEDS: ESCITALOPRAM 10 MG TAB PO SCH (09:40)
[2018-07-17] MEDS: CHOLECALCIFEROL 1,000 UNIT TAB PO SCH (09:40)
[2018-07-17] MEDS: BUPROPION (SR) 150 MG TAB PO SCH (09:40)
[2018-07-17] MEDS: NIACIN 500 MG TAB PO SCH ×2 (09:40→21:40)
[2018-07-17] MEDS: predniSONE 1 MG TAB PO SCH (09:41)
[2018-07-17] MEDS: LORATADINE 10 MG TAB PO SCH (09:41)
[2018-07-17] MEDS: LOSARTAN 50 MG TAB PO SCH (09:43)
--- NOTE | 2018-07-17 15:04 | CONS ---
Assessment/Plan Assessment/Plan Hospital Course (Demo Recall) 77 yo F with PMH Rheumatoid arthritis on chronic steroids and methotrexate, HTN, hypothyroid, depression, diverticula disease presented to [facility] for elective sigmoid resection secondary to diverticula disease with stricture Assessment/Plan (Daily) 1. Iron deficiency anemia - Iron levels noted and discussed iron supplements and increasing iron rich foods in diet - hgb low this am and repeat was 7.7. Transfusing 1 unit PRBC no signs of acut e bleeding. 2. Rheumatoid arthritis- stable - continue on Prednisone 8mg daily. - hold MTX for now - Tylenol PRN for joint discomfort 3. Acute sigmoid diverticulitis with stricture s/p lap sigmoid resection POD #3 - doing well post operatively and tolerating current diet - General surgery to manage postoperative course - pain control 4. Bullous Pemphigoid - continue steroids at this time 5. HTN - stable - continue home medication 6. Depression- stable - continue on Wellbutrin and Lexapro 7. Hypothyroidism - on levothyroxine 8. Allergic rhinitis - continue home Claritin dose 9. h/o hydrocephalus s/p shunt - stable 10. R hearing loss - h/o schwannoma 11. GERD - PPI 12. Disposition - iron supplements started this am and discussed with patient need to continue following discharge - if tolerating diet and no further issues, will be discharged tomorrow. Consultation Date/Type/Reason Admit Date/Time Jul 14, 2018 at 10:14 Initial Consult Date 07/14/18 Type of Consult Medicine Date/Time of Note DATE: 07/17/18 TIME: 14:59 24 HR Interval Summary Free Text/Dictation Patient doing well and denies any acute issues. Discussed iron deficiency and admits to knowing she is anemic. She stopped taking iron supplements around the time she was diagnosed with diverticulitis due to constipation side effects. Discussed increased iron rich foods in diet. No active bleeding appreciated. Exam/Review of Systems Exam Vitals Vital Signs Date Temp Pulse Resp B/P (MAP) Pulse Ox O2 O2 Flow FiO2 Time Delivery Rate 07/17/18 98.0 96 18 113/60 99 Room Air 07:43 (77) 07/14/18 2.0 19:30 Intake and Output 07/16/18 07/16/18 07/17/18 1515:00 23:00 07:00 IntakeIntake Total 300 ml 1700 ml OutputOutput Total 200 ml BalanceBalance 100 ml 1700 ml Exam General: Patient is sitting in chair at bedside, no acute distress Neck: Supple Respiratory: Clear to auscultation bilaterally. no wheezing or rhonchi Cardiovascular: regular rate and rhythm, systolic murmur appreciated Gastrointestinal: soft, nontender, nondistended, bowel sounds heard. Neurological: Moves all extremities spontaneously Results Result Diagram: 07/17/18 0924 07/17/18 0446 Results 24hrs Laboratory Tests Test 07/16/18 16:13 07/17/18 04:46 07/17/18 09:24 Hemoglobin 7.7 L 6.9 *L 7.7 L Hematocrit 24.6 L 21.7 L 24.1 L White Blood Count 11.8 #H 11.0 H Red Blood Count 2.21 L 2.45 L Mean Corpuscular Volume 98.2 98.4 Mean Corpuscular Hemoglobin 31.2 31.4 Mean Corpuscular Hemoglobin Concent 31.8 L 32.0 Red Cell Distribution Width 17.7 H 17.9 H Platelet Count 232 258 Mean Platelet Volume 10.4 10.0 Immature Granulocytes % 0.600 H 0.600 H Neutrophils % 78.3 H 78.3 H Lymphocytes % 8.7 L 10.2 L Monocytes % 11.0 9.0 Eosinophils % 1.2 1.7 Basophils % 0.2 0.2 Nucleated Red Blood Cells % 0.0 0.0 Immature Granulocytes # 0.070 H 0.070 H Neutrophils # 9.2 H 8.6 H Lymphocytes # 1.0 1.1 Monocytes # 1.3 H 1.0 H Eosinophils # 0.1 0.2 Basophils # 0.0 0.0 Nucleated Red Blood Cells # 0.0 0.0 Sodium Level 135 Potassium Level 3.6 Chloride Level 106 Carbon Dioxide Level 24 Anion Gap 5 Medications Medication Current Medications Hydromorphone HCl (Dilaudid) 0.2 mg Q2H PRN IV .PAIN 1-5; Start 07/14/18 at 14:30 Hydromorphone HCl (Dilaudid) 0.4 mg Q2H PRN IV .PAIN 6-10; Start 07/14/18 at 14:30 Nalbuphine HCl (Nubain) 10 mg Q4H PRN IV .PRURITUS; Start 07/14/18 at 14:30 Ondansetron HCl (Zofran Inj) 4 mg Q6H PRN IV .NAUSEA/VOMITING; Start 07/14/18 at 14:30 Naloxone HCl (Narcan) 0.2 mg Q2M PRN IV .RESP RATE; Start 07/14/18 at 14:30 Miscellaneous Information (* Miscellaneous Pharmacy Order) FENTANYL: 20 MCG SPI... GIVEN NEURAXIAL XX ; Start 07/14/18 at 14:30 Hydromorphone HCl (Dilaudid) 0.5 mg Q2 PRN IV PAIN LEVEL 6-10; Start 07/14/18 at 16:00 Diphenhydramine HCl (Benadryl) 25 mg Q6H PRN IV ITCHING; Start 07/14/18 at 16:0 0 Ondansetron HCl (Zofran Inj) 4 mg Q6H PRN IV NAUSEA AND/OR VOMITING; Start 07/14/18 at 16:00 Pantoprazole (Protonix Tab) 40 mg DAILY@06 PO Last administered on 07/17/18 06:51; Admin Dose 40 MG; Start 07/15/18 at 06:00 Enoxaparin Sodium (Lovenox) 30 mg DAILY@07 SC Last administered on 07/17/18 06:53; Admin Dose 30 MG; Start 07/15/18 at 12:00 Lorazepam (Ativan) 0.5 mg HS MAY REPEAT X 1 PRN IV INSOMNIA; Start 07/14/18 at 16:00 Bupropion HCl (Wellbutrin Sr) 150 mg DAILY PO Last administered on 07/17/18 09:40; Admin Dose 150 MG; Start 07/15/18 at 09:00 Cholecalciferol (Vitamin D) 1,000 unit DAILY PO Last administered on 07/17/18 09:40; Admin Dose 1,000 UNIT; Start 07/15/18 at 09:00 Cyanocobalamin (Vitamin B12) 1,500 mcg DAILY PO Last administered on 07/17/18 09:40; Admin Dose 1,500 MCG; Start 07/15/18 at 09:00 Escitalopram Oxalate (Lexapro) 10 mg DAILY PO Last administered on 07/17/18 09:40; Admin Dose 10 MG; Start 07/14/18 at 22:00 Levothyroxine Sodium (Synthroid) 75 mcg BEFORE BREAKFAST PO Last administered on 07/17/18 06:51; Admin Dose 75 MCG; Start 07/15/18 at 07:00 Loratadine (Claritin) 10 mg DAILY PO Last administered on 07/17/18 09:41; Admin Dose 10 MG; Start 07/15/18 at 09:00 Losartan Potassium (Cozaar) 50 mg DAILY PO Last administered on 07/17/18 09:43; Admin Dose 50 MG; Start 07/15/18 at 09:00 Niacin (Niacin) 500 mg BID PO Last administered on 07/17/18 09:40; Admin Dose 500 MG; Start 07/14/18 at 21:00 Oxycodone/ Acetaminophen (Percocet (5/ 325)) 1 tab Q4H PRN PO PAIN Last administered on 07/15/18 20:22; Admin Dose 1 TAB; Start 07/15/18 at 07:30 Prednisone (Prednisone) 5 mg DAILY PO Last administered on 07/17/18 09:40; Admin Dose 5 MG; Start 07/15/18 at 09:00 Prednisone (Prednisone) 3 mg DAILY PO Last administered on 07/17/18 09:41; Ad min Dose 3 MG; Start 07/15/18 at 09:00 Furosemide (Lasix) 5 mg ONCE IV ; Start 07/17/18 at 09:00; Stop 07/18/18 at 08:59 FATUMA KEARNS MD Jul 17, 2018 15:03
[2018-07-17] MEDS ORDERED: FER325 PO (15:11)
--- NOTE | 2018-07-17 15:16 | PDOCDIS ---
Discharge Instructions DIAGNOSIS Discharge Diagnosis 1. Iron deficiency anemia 2. Rheumatoid arthritis- stable 3. Acute sigmoid diverticulitis with stricture s/p lap sigmoid resection 4. Bullous Pemphigoid 5. HTN 6. Depression 7. Hypothyroidism 8. Allergic rhinitis 9. h/o hydrocephalus s/p shunt 10. R hearing loss 11. GERD - PPI CONDITION [id number] Patient Condition: [id number] Stable FOLLOW UP/APPOINTMENTS Follow-up Plan 1. Follow up with your primary care physician in 1-2 weeks 2. Continue all medications as prescribed including Plaquenil and Methotrexate to avoid flares of your rheumatoid arthritis, bullous pemphigoid, and PMR 3. Take iron supplements daily given findings of low iron levels on blood test. If you are not tolerating, take every other day or as tolerated. Increase intake of iron rich foods as well and have your primary care physician monitor you iron levels/hemoglobin 4. If experiencing any concerning symptoms, go to your closest emergency department 5. Follow all instructions provided by your Surgeon FATUMA KEARNS MD Jul 17, 2018 15:16
[2018-07-17 15:26] VITALS: BP 103/55; PULSE 104; RESP 16
[2018-07-17] MEDS: CEPASTAT LOZENGE MT PRN (17:55)
[2018-07-17 19:30] VITALS: BP 122/62; PULSE 84; RESP 18
[2018-07-17 20:30] VITALS: BP 134/74; PULSE 89; RESP 18
[2018-07-17] MEDS: OXYCODONE/ACETAMINOPHEN (5/325) TAB PO PRN (20:53)
[2018-07-17 21:09] VITALS: BP 135/74; PULSE 100; RESP 20
[2018-07-18 02:36] VITALS: BP 135/74; PULSE 82; RESP 18
[2018-07-18] MEDS: ONDANSETRON 4 MG INJ IV PRN (05:11)
[2018-07-18 05:20] VITALS: BP 126/65; PULSE 106; RESP 20
[2018-07-18] MEDS: ENOXAPARIN 30 MG/0.3 ML SYG SC SCH (06:30)
[2018-07-18] MEDS: ACETAMINOPHEN 325 MG TAB PO PRN (06:32)
[2018-07-18] MEDS: PANTOPRAZOLE (EC) 40 MG TAB PO SCH (06:35)
[2018-07-18] MEDS: LEVOTHYROXINE 75 MCG TAB PO SCH (06:35)
[2018-07-18 07:45] VITALS: BP 113/62; PULSE 88; RESP 19
--- NOTE | 2018-07-18 08:50 | PN ---
Date/Time of Note Date/Time of Note DATE: 07/18/18 TIME: 08:50 Assessment/Plan VTE Prophylaxis Risk score (from Ns)>0 risk: 6 SCD applied (from Ns): Yes Pharmacological prophylaxis: NA/contraindicated Pharm contraindication: bleeding Lines/Catheters IV C[facility]ter Type (from [facility] Peripheral IV Urinary Cath still in place: No Assessment/Plan Assessment/Plan 1. Iron deficiency anemia - improved after received transfusion yesterday. Counseled about importance of taking iron supplements. Also encouraged to eat more foods rich in iron 2. Rheumatoid arthritis- stable - continue on Prednisone 8mg daily. - continue methotrexate as usual - Tylenol PRN for joint discomfort 3. Acute sigmoid diverticulitis with stricture s/p lap sigmoid resection POD #4 - doing well post operatively and tolerating current diet - General surgery to manage postoperative course - pain control 4. Bullous Pemphigoid - continue steroids at this time - resume Plaquenil 5. HTN - stable - continue home medication 6. Depression- stable - continue on Wellbutrin and Lexapro 7. Hypothyroidism - on levothyroxine 8. Allergic rhinitis - continue home Claritin dose 9. h/o hydrocephalus s/p shunt - stable 10. R hearing loss - h/o schwannoma 11. GERD - PPI 12. Disposition - If tolerating regular diet and no further episodes of vomiting, medically cleared for discharge home. Discussed restarting all home medications after discharge Result Diagram: 07/17/18 2256 07/17/18 0446 Results 24hrs Laboratory Tests Test 07/17/18 09:24 07/17/18 22:56 White Blood Count 11.0 H 11.7 H Red Blood Count 2.45 L 3.06 #L Hemoglobin 7.7 L 9.5 #L Hematocrit 24.1 L 29.1 #L Mean Corpuscular Volume 98.4 95.1 Mean Corpuscular Hemoglobin 31.4 31.0 Mean Corpuscular Hemoglobin Concent 32.0 32.6 Red Cell Distribution Width 17.9 H 17.7 H Platelet Count 258 279 Mean Platelet Volume 10.0 10.3 Immature Granulocytes % 0.600 H 1.100 H Neutrophils % 78.3 H 88.2 H Lymphocytes % 10.2 L 6.5 L Monocytes % 9.0 3.3 Eosinophils % 1.7 0.8 Basophils % 0.2 0.1 Nucleated Red Blood Cells % 0.0 0.0 Immature Granulocytes # 0.070 H 0.130 H Neutrophils # 8.6 H 10.3 H Lymphocytes # 1.1 0.8 Monocytes # 1.0 H 0.4 Eosinophils # 0.2 0.1 Basophils # 0.0 0.0 Nucleated Red Blood Cells # 0.0 0.0 Subjective 24 Hr Interval Summary Free Text/Dictation Patient had episode of emesis this am but attributes to being given pain medication. Denies any further episodes and no abdominal pain complaints. Discussed plan of care with primary and will start on clear diet and advance to regular for lunch. If no acute issues and still passing gas, will d/c home Exam/Review of Systems Exam Vitals Vital Signs Date Temp Pulse Resp B/P (MAP) Pulse Ox O2 O2 Flow FiO2 Time Delivery Rate 07/18/18 98.2 88 19 113/62 96 07:45 (79) 07/18/18 Room Air 05:20 07/14/18 2.0 19:30 Intake and Output 07/17/18 07/17/18 07/18/18 1515:00 23:00 07:00 IntakeIntake Total 240 ml 350 ml 200 ml BalanceBalance 240 ml 350 ml 200 ml Exam General: Patient is sitting in chair at bedside, no acute distress Neck: Supple Respiratory: Clear to auscultation bilaterally. no wheezing or rhonchi Cardiovascular: regular rate and rhythm, systolic murmur appreciated Gastrointestinal: soft, nontender, nondistended, bowel sounds heard. Neurological: Moves all extremities spontaneously Results Results 24hrs Laboratory Tests Test 07/17/18 09:24 07/17/18 22:56 White Blood Count 11.0 H 11.7 H Red Blood Count 2.45 L 3.06 #L Hemoglobin 7.7 L 9.5 #L Hematocrit 24.1 L 29.1 #L Mean Corpuscular Volume 98.4 95.1 Mean Corpuscular Hemoglobin 31.4 31.0 Mean Corpuscular Hemoglobin Concent 32.0 32.6 Red Cell Distribution Width 17.9 H 17.7 H Platelet Count 258 279 Mean Platelet Volume 10.0 10.3 Immature Granulocytes % 0.600 H 1.100 H Neutrophils % 78.3 H 88.2 H Lymphocytes % 10.2 L 6.5 L Monocytes % 9.0 3.3 Eosinophils % 1.7 0.8 Basophils % 0.2 0.1 Nucleated Red Blood Cells % 0.0 0.0 Immature Granulocytes # 0.070 H 0.130 H Neutrophils # 8.6 H 10.3 H Lymphocytes # 1.1 0.8 Monocytes # 1.0 H 0.4 Eosinophils # 0.2 0.1 Basophils # 0.0 0.0 Nucleated Red Blood Cells # 0.0 0.0 Medications Medication Current Medications Hydromorphone HCl (Dilaudid) 0.2 mg Q2H PRN IV .PAIN 1-5; Start 07/14/18 at 14:30 Hydromorphone HCl (Dilaudid) 0.4 mg Q2H PRN IV .PAIN 6-10; Start 07/14/18 at 14:30 Nalbuphine HCl (Nubain) 10 mg Q4H PRN IV .PRURITUS; Start 07/14/18 at 14:30 Ondansetron HCl (Zofran Inj) 4 mg Q6H PRN IV .NAUSEA/VOMITING Last administered on 07/18/18at 05:11; Admin Dose 4 MG; Start 07/14/18 at 14:30 Naloxone HCl (Narcan) 0.2 mg Q2M PRN IV .RESP RATE; Start 07/14/18 at 14:30 Miscellaneous Information (* Miscellaneous Pharmacy Order) FENTANYL: 20 MCG SPI... GIVEN NEURAXIAL XX ; Start 07/14/18 at 14:30 Hydromorphone HCl (Dilaudid) 0.5 mg Q2 PRN IV PAIN LEVEL 6-10; Start 07/14/18 at 16:00 Diphenhydramine HCl (Benadryl) 25 mg Q6H PRN IV ITCHING; Start 07/14/18 at 16:00 Ondansetron HCl (Zofran Inj) 4 mg Q6H PRN IV NAUSEA AND/OR VOMITING; Start 07/14/18 at 16:00 Pantoprazole (Protonix Tab) 40 mg DAILY@06 PO Last administered on 07/18/18at 06:35; Admin Dose 40 MG; Start 07/15/18 at 06:00 Enoxaparin Sodium (Lovenox) 30 mg DAILY@07 SC Last administered on 07/18/18at 06:30; Admin Dose 30 MG; Start 07/15/18 at 12:00 Lorazepam (Ativan) 0.5 mg HS MAY REPEAT X 1 PRN IV INSOMNIA; Start 07/14/18 at 16:00 Bupropion HCl (Wellbutrin Sr) 150 mg DAILY PO Last administered on 07/17/18 09:40; Admin Dose 150 MG; Start 07/15/18 at 09:00 Cholecalciferol (Vitamin D) 1,000 unit DAILY PO Last administered on 07/17/18 09:40; Admin Dose 1,000 UNIT; Start 07/15/18 at 09:00 Cyanocobalamin (Vitamin B12) 1,500 mcg DAILY PO Last administered on 07/17/18 09:40; Admin Dose 1,500 MCG; Start 07/15/18 at 09:00 Escitalopram Oxalate (Lexapro) 10 mg DAILY PO Last administered on 07/17/18 09:40; Admin Dose 10 MG; Start 07/14/18 at 22:00 Levothyroxine Sodium (Synthroid) 75 mcg BEFORE BREAKFAST PO Last administered on 07/18/18 06:35; Admin Dose 75 MCG; Start 07/15/18 at 07:00 Loratadine (Claritin) 10 mg DAILY PO Last administered on 07/17/18 09:41; Admin Dose 10 MG; Start 07/15/18 at 09:00 Losartan Potassium (Cozaar) 50 mg DAILY PO Last administered on 07/17/18 09:43; Admin Dose 50 MG; Start 07/15/18 at 09:00 Niacin (Niacin) 500 mg BID PO Last administered on 07/17/18 21:40; Admin Dose 500 MG; Start 07/14/18 at 21:00 Oxycodone/ Acetaminophen (Percocet (5/ 325)) 1 tab Q4H PRN PO PAIN Last ad ministered on 07/17/18 20:53; Admin Dose 1 TAB; Start 07/15/18 at 07:30 Prednisone (Prednisone) 5 mg DAILY PO Last administered on 07/17/18 09:40; Admin Dose 5 MG; Start 07/15/18 at 09:00 Prednisone (Prednisone) 3 mg DAILY PO Last administered on 07/17/18 09:41; Admin Dose 3 MG; Start 07/15/18 at 09:00 Furosemide (Lasix) 5 mg ONCE IV ; Start 07/17/18 at 09:00; Stop 07/18/18 at 08:59 Ferrous Sulfate (Ferrous Sulfate (Ec)) 325 mg DAILY PO ; Start 07/18/18 at 09:00 Phenol (Cepastat Lozenge) 1 lozenge Q1H PRN MT cough Last administered on 07/17/18at 17:55; Admin Dose 1 LOZENGE; Start 07/17/18 at 17:30 Acetaminophen (Tylenol Tab) 650 mg Q6H PRN PO MILD PAIN(1-3)OR ELEVATED TEMP Last administered on 07/18/18at 06:32; Admin Dose 650 MG; Start 07/18/18 at 06:00 FATUMA KEARNS MD Jul 18, 2018 08:50
--- NOTE | 2018-07-18 08:53 | PN ---
Date/Time of Note Date/Time of Note DATE: 07/18/18 TIME: 08:50 Assessment/Plan VTE Prophylaxis Risk score (from Ns)>0 risk: 6 SCD applied (from Ns): Yes Pharmacological prophylaxis: LMWH Lines/Catheters IV Catheter Type (from Nrs): Peripheral IV Urinary Cath still in place: No Assessment/Plan Hospital Course 77YO Woman h/o stenotic sigmoid s/p sigmoid resection now POD 4. Doing very well. Had some emesis early this AM but feeling much better now, wants to eat. VS OK, Hct improved to 29 after 1U PRBC. Reports passing a little gas and stool. Denies CP/SOB/F/C/NV. Will try clears this AM, advance to regular food if tolerates, and hopefully D/C this PM. D/W IM , will do med reconcilliation and d/w caser up home needs. Will check in later and D/C if pt OK. Rx for Bailey in paper chart. Continue OOB, home meds. Result Diagram: 07/17/18 2256 07/17/18 0446 Results 24hrs Laboratory Tests Test 07/17/18 09:24 07/17/18 22:56 White Blood Count 11.0 H 11.7 H Red Blood Count 2.45 L 3.06 #L Hemoglobin 7.7 L 9.5 #L Hematocrit 24.1 L 29.1 #L Mean Corpuscular Volume 98.4 95.1 Mean Corpuscular Hemoglobin 31.4 31.0 Mean Corpuscular Hemoglobin Concent 32.0 32.6 Red Cell Distribution Width 17.9 H 17.7 H Platelet Count 258 279 Mean Platelet Volume 10.0 10.3 Immature Granulocytes % 0.600 H 1.100 H Neutrophils % 78.3 H 88.2 H Lymphocytes % 10.2 L 6.5 L Monocytes % 9.0 3.3 Eosinophils % 1.7 0.8 Basophils % 0.2 0.1 Nucleated Red Blood Cells % 0.0 0.0 Immature Granulocytes # 0.070 H 0.130 H Neutrophils # 8.6 H 10.3 H Lymphocytes # 1.1 0.8 Monocytes # 1.0 H 0.4 Eosinophils # 0.2 0.1 Basophils # 0.0 0.0 Nucleated Red Blood Cells # 0.0 0.0 Subjective 24 Hr Interval Summary Constitutional: improved (Had emesis earlier after PO pain med, much better now, wants to eat) Respiratory: no complaints Cardiovascular: no complaints Gastrointestinal: no complaints Exam/Review of Systems Exam Vitals Vital Signs Date Temp Pulse Resp B/P (MAP) Pulse Ox O2 O2 Flow FiO2 Time Delivery Rate 07/18/18 98.2 88 19 113/62 96 07:45 (79) 07/18/18 Room Air 05:20 07/14/18 2.0 19:30 Intake and Output 07/17/18 07/17/18 07/18/18 1515:00 23:00 07:00 IntakeIntake Total 240 ml 350 ml 200 ml BalanceBalance 240 ml 350 ml 200 ml Constitutional: alert, oriented Respiratory: clear to auscultation Cardiovascular: regular rate and rhythm Gastrointestinal: soft (NT/NM/ND, wound C/D/I) Results Results 24hrs Laboratory Tests Test 07/17/18 09:24 07/17/18 22:56 White Blood Count 11.0 H 11.7 H Red Blood Count 2.45 L 3.06 #L Hemoglobin 7.7 L 9.5 #L Hematocrit 24.1 L 29.1 #L Mean Corpuscular Volume 98.4 95.1 Mean Corpuscular Hemoglobin 31.4 31.0 Mean Corpuscular Hemoglobin Concent 32.0 32.6 Red Cell Distribution Width 17.9 H 17.7 H Platelet Count 258 279 Mean Platelet Volume 10.0 10.3 Immature Granulocytes % 0.600 H 1.100 H Neutrophils % 78.3 H 88.2 H Lymphocytes % 10.2 L 6.5 L Monocytes % 9.0 3.3 Eosinophils % 1.7 0.8 Basophils % 0.2 0.1 Nucleated Red Blood Cells % 0.0 0.0 Immature Granulocytes # 0.070 H 0.130 H Neutrophils # 8.6 H 10.3 H Lymphocytes # 1.1 0.8 Monocytes # 1.0 H 0.4 Eosinophils # 0.2 0.1 Basophils # 0.0 0.0 Nucleated Red Blood Cells # 0.0 0.0 Medications Medication Current Medications Hydromorphone HCl (Dilaudid) 0.2 mg Q2H PRN IV .PAIN 1-5; Start 07/14/18 at 14:30 Hydromorphone HCl (Dilaudid) 0.4 mg Q2H PRN IV .PAIN 6-10; Start 07/14/18 at 14:30 Nalbuphine HCl (Nubain) 10 mg Q4H PRN IV .PRURITUS; Start 07/14/18 at 14:30 Ondansetron HCl (Zofran Inj) 4 mg Q6H PRN IV .NAUSEA/VOMITING Last administered on 07/18/18 05:11; Admin Dose 4 MG; Start 07/14/18 at 14:30 Naloxone HCl (Narcan) 0.2 mg Q2M PRN IV .RESP RATE; Start 07/14/18 at 14:30 Miscellaneous Information (* Miscellaneous Pharmacy Order) FENTANYL: 20 MCG SPI... GIVEN NEURAXIAL XX ; Start 07/14/18 at 14:30 Hydromorphone HCl (Dilaudid) 0.5 mg Q2 PRN IV PAIN LEVEL 6-10; Start 07/14/18 at 16:00 Diphenhydramine HCl (Benadryl) 25 mg Q6H PRN IV ITCHING; Start 07/14/18 at 16:00 Ondansetron HCl (Zofran Inj) 4 mg Q6H PRN IV NAUSEA AND/OR VOMITING; Start 07/14/18 at 16:00 Pantoprazole (Protonix Tab) 40 mg DAILY@06 PO Last administered on 07/18/18at 06:35; Admin Dose 40 MG; Start 07/15/18 at 06:00 Enoxaparin Sodium (Lovenox) 30 mg DAILY@07 SC Last administered on 07/18/18 06:30; Admin Dose 30 MG; Start 07/15/18 at 12:00 Lorazepam (Ativan) 0.5 mg HS MAY REPEAT X 1 PRN IV INSOMNIA; Start 07/14/18 at 16:00 Bupropion HCl (Wellbutrin Sr) 150 mg DAILY PO Last administered on 07/17/18 09:40; Admin Dose 150 MG; Start 07/15/18 at 09:00 Cholecalciferol (Vitamin D) 1,000 unit DAILY PO Last administered on 07/17/18 09:40; Admin Dose 1,000 UNIT; Start 07/15/18 at 09:00 Cyanocobalamin (Vitamin B12) 1,500 mcg DAILY PO Last administered on 07/17/18 09:40; Admin Dose 1,500 MCG; Start 07/15/18 at 09:00 Escitalopram Oxalate (Lexapro) 10 mg DAILY PO Last administered on 07/17/18 09:40; Admin Dose 10 MG; Start 07/14/18 at 22:00 Levothyroxine Sodium (Synthroid) 75 mcg BEFORE BREAKFAST PO Last administered on 07/18/18 06:35; Admin Dose 75 MCG; Start 07/15/18 at 07:00 Loratadine (Claritin) 10 mg DAILY PO Last administered on 07/17/18 09:41; Admin Dose 10 MG; Start 07/15/18 at 09:00 Losartan Potassium (Cozaar) 50 mg DAILY PO Last administered on 07/17/18 09 :43; Admin Dose 50 MG; Start 07/15/18 at 09:00 Niacin (Niacin) 500 mg BID PO Last administered on 07/17/18 21:40; Admin Dose 500 MG; Start 07/14/18 at 21:00 Oxycodone/ Acetaminophen (Percocet (5/ 325)) 1 tab Q4H PRN PO PAIN Last administered on 07/17/18 20:53; Admin Dose 1 TAB; Start 07/15/18 at 07:30 Prednisone (Prednisone) 5 mg DAILY PO Last administered on 07/17/18 09:40; Admin Dose 5 MG; Start 07/15/18 at 09:00 Prednisone (Prednisone) 3 mg DAILY PO Last administered on 07/17/18 09:41; Admin Dose 3 MG; Start 07/15/18 at 09:00 Furosemide (Lasix) 5 mg ONCE IV ; Start 07/17/18 at 09:00; Stop 07/18/18 at 08:59 Ferrous Sulfate (Ferrous Sulfate (Ec)) 325 mg DAILY PO ; Start 07/18/18 at 09:00 Phenol (Cepastat Lozenge) 1 lozenge Q1H PRN MT cough Last administered on 07/17/18 17:55; Admin Dose 1 LOZENGE; Start 07/17/18 at 17:30 Acetaminophen (Tylenol Tab) 650 mg Q6H PRN PO MILD PAIN(1-3)OR ELEVATED TEMP Last administered on 07/18/18 06:32; Admin Dose 650 MG; Start 07/18/18 at 06:00 TAMMY FLORES M.D. Jul 18, 2018 08:53
[2018-07-18] MEDS ORDERED: FERROUS SULFATE (EC) 325 MG TAB PO SCH (09:00)
[2018-07-18] MEDS: BUPROPION (SR) 150 MG TAB PO SCH (09:10)
[2018-07-18] MEDS: ESCITALOPRAM 10 MG TAB PO SCH (09:11)
[2018-07-18] MEDS: LORATADINE 10 MG TAB PO SCH (09:11)
[2018-07-18] MEDS: CYANOCOBALAMIN 500 MCG TAB PO SCH (09:11)
[2018-07-18] MEDS: CHOLECALCIFEROL 1,000 UNIT TAB PO SCH (09:11)
[2018-07-18] MEDS: LOSARTAN 50 MG TAB PO SCH (09:13)
[2018-07-18] MEDS: predniSONE 1 MG TAB PO SCH (09:13)
[2018-07-18] MEDS: NIACIN 500 MG TAB PO SCH ×2 (09:15→21:00)
[2018-07-18] MEDS: predniSONE 5 MG TAB PO SCH (09:25)
[2018-07-18 15:30] VITALS: BP 121/68; PULSE 86; RESP 18
[2018-07-18] MEDS: CEPASTAT LOZENGE MT PRN (19:53)
[2018-07-18 20:00] VITALS: BP 127/78; PULSE 88; RESP 18
[2018-07-18] MEDS ORDERED: D5-0.2 NACL + KCL 20 MEQ 1,000 ML IV SCH (20:00)
[2018-07-18] MEDS: METOCLOPRAMIDE 10 MG INJ IV SCH (20:12)
[2018-07-19] MEDS: METOCLOPRAMIDE 10 MG INJ IV SCH ×2 (00:26→06:07)
[2018-07-19 00:30] VITALS: BP 140/78; PULSE 98; RESP 19
[2018-07-19] MEDS: ONDANSETRON 4 MG INJ IV PRN (03:02)
[2018-07-19 03:45] VITALS: BP 115/78; PULSE 100; RESP 20
[2018-07-19] MEDS: PANTOPRAZOLE (EC) 40 MG TAB PO SCH (05:35)
[2018-07-19] MEDS: LEVOTHYROXINE 75 MCG TAB PO SCH (05:35)
[2018-07-19] MEDS: ENOXAPARIN 30 MG/0.3 ML SYG SC SCH (06:09)
[2018-07-19 08:00] VITALS: BP 128/71; PULSE 112; RESP 19
--- NOTE | 2018-07-19 09:17 | PN ---
Date/Time of Note Date/Time of Note DATE: 07/19/18 TIME: 09:09 Assessment/Plan VTE Prophylaxis Risk score (from Ns)>0 risk: 8 SCD applied (from Ns): Yes Pharmacological prophylaxis: LMWH Lines/Catheters IV Catheter Type (from Nrs): [place] Lock Urinary Cath still in place: No Assessment/Plan Hospital Course 77YO Woman h/o stenotic sigmoid s/p sigmoid resection now POD 5. Overnight had some NV. Feels OK this AM. HR at bedside 100-110. Pt feels dry. Denies CP/SOB/F/C/N. VS reveal tachy and 100F temp. On exam, appears well, states she's depressed because she wants to go home. Abd soft/NT, mildly distended, no peritoneal signs. WBC 11 (on prednisone), Hct stable, Cr OK. Likely ileus and dehydration from vomiting. Will bolus 500ml NS. Will get Flat/Upright CXR and AXR to r/o PNA, free air. Get UA to R/O UTI. Will attempt sips of clears. D/W IM and nurse. Result Diagram: 07/19/18 0453 07/19/18 0453 Results 24hrs Laboratory Tests Test 07/19/18 04:53 White Blood Count 11.4 H Red Blood Count 2.96 L Hemoglobin 9.2 L Hematocrit 28.3 L Mean Corpuscular Volume 95.6 Mean Corpuscular Hemoglobin 31.1 Mean Corpuscular Hemoglobin Concent 32.5 Red Cell Distribution Width 17.2 H Platelet Count 296 Mean Platelet Volume 10.4 Immature Granulocytes % 0.600 H Neutrophils % 86.9 H Lymphocytes % 3.6 L Monocytes % 6.9 Eosinophils % 1.8 Basophils % 0.2 Nucleated Red Blood Cells % 0.0 Immature Granulocytes # 0.070 H Neutrophils # 9.9 H Lymphocytes # 0.4 L Monocytes # 0.8 Eosinophils # 0.2 Basophils # 0.0 Nucleated Red Blood Cells # 0.0 Sodium Level 132 L Potassium Level 4.4 Chloride Level 95 L Carbon Dioxide Level 30 Anion Gap 7 Blood Urea Nitrogen 7 Creatinine 0.55 Est Glomerular Filtrat Rate mL/min Glucose Level 117 Calcium Level 8.7 Subjective 24 Hr Interval Summary Constitutional: poor po (Pt states she's depressed still in hospital, wants to drink and eat, mild LUQ pain, no NV at bedside) Respiratory: no complaints Cardiovascular: no complaints Gastrointestinal: pain (mild LUQ) Exam/Review of Systems Exam Vitals Vital Signs Date Temp Pulse Resp B/P (MAP) Pulse Ox O2 O2 Flow FiO2 Time Delivery Rate 07/19/18 99.9 112 19 128/71 97 08:00 (90) 07/19/18 Room Air 03:45 Intake and Output 07/18/18 07/18/18 07/19/18 1515:00 23:00 07:00 IntakeIntake Total 200 ml 750 ml OutputOutput Total 300 ml 300 ml BalanceBalance -100 ml 450 ml Constitutional: alert, oriented Respiratory: clear to auscultation Cardiovascular: other (tachy RR) Gastrointestinal: soft (NTTP, mildly distended, wound C/D/I, no peritoneal signs) Extremities: other (-C/C/E) Results Results 24hrs Laboratory Tests Test 07/19/18 04:53 White Blood Count 11.4 H Red Blood Count 2.96 L Hemoglobin 9.2 L Hematocrit 28.3 L Mean Corpuscular Volume 95.6 Mean Corpuscular Hemoglobin 31.1 Mean Corpuscular Hemoglobin Concent 32.5 Red Cell Distribution Width 17.2 H Platelet Count 296 Mean Platelet Volume 10.4 Immature Granulocytes % 0.600 H Neutrophils % 86.9 H Lymphocytes % 3.6 L Monocytes % 6.9 Eosinophils % 1.8 Basophils % 0.2 Nucleated Red Blood Cells % 0.0 Immature Granulocytes # 0.070 H Neutrophils # 9.9 H Lymphocytes # 0.4 L Monocytes # 0.8 Eosinophils # 0.2 Basophils # 0.0 Nucleated Red Blood Cells # 0.0 Sodium Level 132 L Potassium Level 4.4 Chloride Level 95 L Carbon Dioxide Level 30 Anion Gap 7 Blood Urea Nitrogen 7 Creatinine 0.55 Est Glomerular Filtrat Rate mL/min Glucose Level 117 Calcium Level 8.7 Medications Medication Current Medications Hydromorphone HCl (Dilaudid) 0.2 mg Q2H PRN IV .PAIN 1-5; Start 07/14/18 at 14:30 Hydromorphone HCl (Dilaudid) 0.4 mg Q2H PRN IV .PAIN 6-10; Start 07/14/18 at 14:30 Nalbuphine HCl (Nubain) 10 mg Q4H PRN IV .PRURITUS; Start 07/14/18 at 14:30 Ondansetron HCl (Zofran Inj) 4 mg Q6H PRN IV .NAUSEA/VOMITING Last administered on 07/19/18 03:02; Admin Dose 4 MG; Start 07/14/18 at 14:30 Naloxone HCl (Narcan) 0.2 mg Q2M PRN IV .RESP RATE; Start 07/14/18 at 14:30 Miscellaneous Information (* Miscellaneous Pharmacy Order) FENTANYL: 20 MCG SPI... GIVEN NEURAXIAL XX ; Start 07/14/18 at 14:30 Hydromorphone HCl (Dilaudid) 0.5 mg Q2 PRN IV PAIN LEVEL 6-10; Start 07/14/18 at 16:00 Diphenhydramine HCl (Benadryl) 25 mg Q6H PRN IV ITCHING; Start 07/14/18 at 16:00 Ondansetron HCl (Zofran Inj) 4 mg Q6H PRN IV NAUSEA AND/OR VOMITING; Start 07/14/18 at 16:00 Pantoprazole (Protonix Tab) 40 mg DAILY@06 PO Last administered on 07/18/18 06:35; Admin Dose 40 MG; Start 07/15/18 at 06:00 Enoxaparin Sodium (Lovenox) 30 mg DAILY@07 SC Last administered on 07/19/18 06:09; Admin Dose 30 MG; Start 07/15/18 at 12:00 Lorazepam (Ativan) 0.5 mg HS MAY REPEAT X 1 PRN IV INSOMNIA; Start 07/14/18 at 16:00 Bupropion HCl (Wellbutrin Sr) 150 mg DAILY PO Last administered on 07/18/18 09:10; Admin Dose 150 MG; Start 07/15/18 at 09:00 Cholecalciferol (Vitamin D) 1,000 unit DAILY PO Last administered on 07/18/18 09:11; Admin Dose 1,000 UNIT; Start 07/15/18 at 09:00 Cyanocobalamin (Vitamin B12) 1,500 mcg DAILY PO Last administered on 07/18/18 09:11; Admin Dose 1,500 MCG; Start 07/15/18 at 09:00 Escitalopram Oxalate (Lexapro) 10 mg DAILY PO Last administered on 07/18/18 09:11; Admin Dose 10 MG; Start 07/14/18 at 22:00 Levothyroxine Sodium (Synthroid) 75 mcg BEFORE BREAKFAST PO Last administered on 07/18/18 06:35; Admin Dose 75 MCG; Start 07/15/18 at 07:00 Loratadine (Claritin) 10 mg DAILY PO Last administered on 07/18/18 09:11; Admin Dose 10 MG; Start 07/15/18 at 09:00 Losartan Potassium (Cozaar) 50 mg DAILY PO Last administered on 07/18/18 09:13; Admin Dose 50 MG; Start 07/15/18 at 09:00 Niacin (Niacin) 500 mg BID PO Last administered on 07/18/18 09:15; Admin Dose 500 MG; Start 07/14/18 at 21:00 Oxycodone/ Acetaminophen (Percocet (5/ 325)) 1 tab Q4H PRN PO PAIN Last adminis tered on 07/17/18 20:53; Admin Dose 1 TAB; Start 07/15/18 at 07:30 Prednisone (Prednisone) 5 mg DAILY PO Last administered on 07/18/18 09:25; Admin Dose 5 MG; Start 07/15/18 at 09:00 Prednisone (Prednisone) 3 mg DAILY PO Last administered on 07/18/18 09:13; Admin Dose 3 MG; Start 07/15/18 at 09:00 Ferrous Sulfate (Ferrous Sulfate (Ec)) 325 mg DAILY PO Last administered on 07/18/18 09:10; Admin Dose 325 MG; Start 07/18/18 at 09:00; Status Hold Phenol (Cepastat Lozenge) 1 lozenge Q1H PRN MT cough Last administered on 07/18/18 19:53; Admin Dose 1 LOZENGE; Start 07/17/18 at 17:30 Acetaminophen (Tylenol Tab) 650 mg Q6H PRN PO MILD PAIN(1-3)OR ELEVATED TEMP Last administered on 07/18/18 06:32; Admin Dose 650 MG; Start 07/18/18 at 06:00 Metoclopramide HCl (Reglan) 10 mg Q6 IV Last administered on 07/19/18 06:07; Admin Dose 10 MG; Start 07/18/18 at 19:00 Potassium Chloride/Dextrose/ Sod Cl 1,000 ml @ 75 mls/hr [id number] IV ; Start 07/19/18 at 09:00 TAMMY FLORES M.D. Jul 19, 2018 09:17
[2018-07-19] MEDS ORDERED: SOD CHLORIDE 0.9% 500 ML IV ONE (09:30)
[2018-07-19] MEDS: BUPROPION (SR) 150 MG TAB PO SCH (09:38)
[2018-07-19] MEDS: LOSARTAN 50 MG TAB PO SCH (09:38)
[2018-07-19] MEDS: OXYCODONE/ACETAMINOPHEN (5/325) TAB PO PRN (10:28)
[2018-07-19] MEDS ORDERED: KETOROLAC 15 MG INJ IV PRN (11:30)
[2018-07-19] MEDS: D5W-0.45 NACL + KCL 20 MEQ 1,000 ML IV SCH ×2 (12:02→21:10)
[2018-07-19] MEDS: ESCITALOPRAM 10 MG TAB PO SCH (12:03)
[2018-07-19] MEDS: LORATADINE 10 MG TAB PO SCH (12:03)
[2018-07-19 14:00] VITALS: BP 90/62; PULSE 64; RESP 19
--- NOTE | 2018-07-19 16:35 | CONS ---
Assessment/Plan Assessment/Plan Hospital Course (Demo Recall) 77 yo F with PMH Rheumatoid arthritis on chronic steroids and methotrexate, HTN, hypothyroid, depression, diverticula disease presented to [facility] for elective sigmoid resection secondary to diverticula disease with stricture Assessment/Plan (Daily) 1. Nausea with vomiting - concern for post op ileus. Repeat imaging studies ordered - Encouraged patient to ambulate. Currently on clears per Gen Surgery recommendations 2. Iron deficiency anemia - stable - Counseled about importance of taking iron supplements. Also encouraged to eat more foods rich in iron 3. Rheumatoid arthritis- stable - continue on Prednisone 8mg daily. - continue methotrexate as usual - Tylenol PRN for joint discomfort 4. Acute sigmoid diverticulitis with stricture s/p lap sigmoid resection POD #5 - doing well post operatively and tolerating current diet - General surgery to manage postoperative course - pain control 5. Bullous Pemphigoid - continue steroids at this time - resume Plaquenil 6. HTN - stable - continue home medication 7. Depression- stable - continue on Wellbutrin and Lexapro 8. Hypothyroidism - on levothyroxine 9. Allergic rhinitis - continue home Claritin dose 10. h/o hydrocephalus s/p shunt - stable 11. R hearing loss - h/o schwannoma 12. GERD - PPI 13. Disposition - Will continue clear liquid diet and monitor for improvement in motility in abdomen. Once tolerating regular diet without any issues, will d/c home Consultation Date/Type/Reason Admit Date/Time Jul 14, 2018 at 10:14 Initial Consult Date 07/14/18 Type of Consult Medicine Date/Time of Note DATE: 07/19/18 TIME: 16:27 24 HR Interval Summary Free Text/Dictation Patient had multiple episodes of vomiting yesterday and feeling weak. Not passing any gas or stool. Exam/Review of Systems Exam Vitals Vital Signs Date Temp Pulse Resp B/P (MAP) Pulse Ox O2 O2 Flow FiO2 Time Delivery Rate 07/19/18 98.4 64 19 90/62 (71) 100 14:00 07/19/18 Room Air 03:45 Intake and Output 07/18/18 07/18/18 07/19/18 1515:00 23:00 07:00 IntakeIntake Total 200 ml 750 ml OutputOutput Total 300 ml 300 ml BalanceBalance -100 ml 450 ml Exam General: Patient is sitting in chair at bedside, fatigued Neck: Supple Respiratory: Clear to auscultation bilaterally. no wheezing or rhonchi Cardiovascular: regular rate and rhythm, systolic murmur appreciated Gastrointestinal: soft, nontender, nondistended, bowel sounds heard. diminished. Neurological: Moves all extremities spontaneously Results Result Diagram: 07/19/18 0453 07/19/18 0453 Results 24hrs Laboratory Tests Test 07/19/18 04:53 White Blood Count 11.4 H Red Blood Count 2.96 L Hemoglobin 9.2 L Hematocrit 28.3 L Mean Corpuscular Volume 95.6 Mean Corpuscular Hemoglobin 31.1 Mean Corpuscular Hemoglobin Concent 32.5 Red Cell Distribution Width 17.2 H Platelet Count 296 Mean Platelet Volume 10.4 Immature Granulocytes % 0.600 H Neutrophils % 86.9 H Lymphocytes % 3.6 L Monocytes % 6.9 Eosinophils % 1.8 Basophils % 0.2 Nucleated Red Blood Cells % 0.0 Immature Granulocytes # 0.070 H Neutrophils # 9.9 H Lymphocytes # 0.4 L Monocytes # 0.8 Eosinophils # 0.2 Basophils # 0.0 Nucleated Red Blood Cells # 0.0 Sodium Level 132 L Potassium Level 4.4 Chloride Level 95 L Carbon Dioxide Level 30 Anion Gap 7 Blood Urea Nitrogen 7 Creatinine 0.55 Est Glomerular Filtrat Rate mL/min Glucose Level 117 Calcium Level 8.7 Medications Medication Current Medications Hydromorphone HCl (Dilaudid) 0.2 mg Q2H PRN IV .PAIN 1-5; Start 07/14/18 at 14:30 Hydromorphone HCl (Dilaudid) 0.4 mg Q2H PRN IV .PAIN 6-10; Start 07/14/18 at 14:30 Nalbuphine HCl (Nubain) 10 mg Q4H PRN IV .PRURITUS; Start 07/14/18 at 14:30 Ondansetron HCl (Zofran Inj) 4 mg Q6H PRN IV .NAUSEA/VOMITING Last administered on 07/19/18at 03:02; Admin Dose 4 MG; Start 07/14/18 at 14:30 Naloxone HCl (Narcan) 0.2 mg Q2M PRN IV .RESP RATE; Start 07/14/18 at 14:30 Miscellaneous Information (* Miscellaneous Pharmacy Order) FENTANYL: 20 MCG SPI... GIVEN NEURAXIAL XX ; Start 07/14/18 at 14:30 Hydromorphone HCl (Dilaudid) 0.5 mg Q2 PRN IV PAIN LEVEL 6-10; Start 07/14/18 at 16:00 Diphenhydramine HCl (Benadryl) 25 mg Q6H PRN IV ITCHING; Start 07/14/18 at 16:00 Ondansetron HCl (Zofran Inj) 4 mg Q6H PRN IV NAUSEA AND/OR VOMITING; Start 07/14/18 at 16:00 Pantoprazole (Protonix Tab) 40 mg DAILY@06 PO Last administered on 07/18/18 06:35; Admin Dose 40 MG; Start 07/15/18 at 06:00 Enoxaparin Sodium (Lovenox) 30 mg DAILY@07 SC Last administered on 07/19/18 06:09; Admin Dose 30 MG; Start 07/15/18 at 12:00 Lorazepam (Ativan) 0.5 mg HS MAY REPEAT X 1 PRN IV INSOMNIA; Start 07/14/18 at 16:00 Bupropion HCl (Wellbutrin Sr) 150 mg DAILY PO Last administered on 07/19/18 09:38; Admin Dose 150 MG; Start 07/15/18 at 09:00 Cholecalciferol (Vitamin D) 1,000 unit DAILY PO Last administered on 07/18/18 09:11; Admin Dose 1,000 UNIT; Start 07/15/18 at 09:00 Cyanocobalamin (Vitamin B12) 1,500 mcg DAILY PO Last administered on 07/18/18 09:11; Admin Dose 1,500 MCG; Start 07/15/18 at 09:00 Escitalopram Oxalate (Lexapro) 10 mg DAILY PO Last administered on 07/19/18 12:03; Admin Dose 10 MG; Start 07/14/18 at 22:00 Levothyroxine Sodium (Synthroid) 75 mcg BEFORE BREAKFAST PO Last administered on 07/18/18 06:35; Admin Dose 75 MCG; Start 07/15/18 at 07:00 Loratadine (Claritin) 10 mg DAILY PO Last administered on 07/19/18 12:03; Admin Dose 10 MG; Start 07/15/18 at 09:00 Losartan Potassium (Cozaar) 50 mg DAILY PO Last administered on 07/19/18 09:38; Admin Dose 50 MG; Start 07/15/18 at 09:00 Niacin (Niacin) 500 mg BID PO Last administered on 07/18/18 09:15; Admin Dose 500 MG; Start 07/14/18 at 21:00 Oxycodone/ Acetaminophen (Percocet (5/ 325)) 1 tab Q4H PRN PO PAIN Last administered on 07/19/18 10:28; Admin Dose 1 TAB; Start 07/15/18 at 07:30 Prednisone (Prednisone) 5 mg DAILY PO Last administered on 07/18/18 09:25; Admin Dose 5 MG; Start 07/15/18 at 09:00 Prednisone (Prednisone) 3 mg DAILY PO Last administered on 07/18/18 09:13; Admin Dose 3 MG; Start 07/15/18 at 09:00 Ferrous Sulfate (Ferrous Sulfate (Ec)) 325 mg DAILY PO Last administered on 07/18/18 09:10; Admin Dose 325 MG; Start 07/18/18 at 09:00; Status Hold Phenol (Cepastat Lozenge) 1 lozenge Q1H PRN MT cough Last administered on 07/18/18 19:53; Admin Dose 1 LOZENGE; Start 07/17/18 at 17:30 Acetaminophen (Tylenol Tab) 650 mg Q6H PRN PO MILD PAIN(1-3)OR ELEVATED TEMP Last administered on 07/18/18 06:32; Admin Dose 650 MG; Start 07/18/18 at 06:00 Potassium Chloride/Dextrose/ Sod Cl 1,000 ml @ 100 mls/hr Q10H IV Last administered on 07/19/18 12:02; Admin Dose 100 MLS/HR; Start 07/19/18 at 09:00 Ketorolac Tromethamine (Toradol) 15 mg Q6H PRN IV PAIN; Start 07/19/18 at 11:30 FATUMA KEARNS MD Jul 19, 2018 16:35
[2018-07-19] MEDS: NIACIN 500 MG TAB PO SCH ×2 (16:37→21:06)
[2018-07-19] MEDS: CYANOCOBALAMIN 500 MCG TAB PO SCH (16:38)
[2018-07-19] MEDS: predniSONE 1 MG TAB PO SCH (16:38)
[2018-07-19] MEDS: predniSONE 5 MG TAB PO SCH (16:38)
[2018-07-19] MEDS: CHOLECALCIFEROL 1,000 UNIT TAB PO SCH (16:38)
[2018-07-19 20:34] VITALS: BP 118/82; PULSE 100; RESP 20
[2018-07-20] MEDS: PANTOPRAZOLE (EC) 40 MG TAB PO SCH (00:36)
[2018-07-20 02:41] VITALS: BP 116/80; PULSE 88
[2018-07-20 03:45] VITALS: BP 118/81; PULSE 90; RESP 20
[2018-07-20 04:10] VITALS: PULSE 93; RESP 18
[2018-07-20] MEDS: ALBUTEROL 0.083% (NEB) 2.5 MG/3 ML AMP HHN SCH ×5 (04:11→20:19)
[2018-07-20] MEDS: ONDANSETRON 4 MG INJ IV PRN ×2 (04:21→10:26)
[2018-07-20] MEDS: LEVOTHYROXINE 75 MCG TAB PO SCH (05:51)
[2018-07-20] MEDS: D5W-0.45 NACL + KCL 20 MEQ 1,000 ML IV SCH (05:52)
[2018-07-20] MEDS: ENOXAPARIN 30 MG/0.3 ML SYG SC SCH (05:54)
[2018-07-20 07:53] VITALS: BP_SYST 146; BP_DIAS 111; BP_DIAS 60; PULSE 106; RESP 16
[2018-07-20] MEDS ORDERED: SOD CHLORIDE 0.9% 250 ML IV ONE (08:30)
--- NOTE | 2018-07-20 08:45 | PN ---
Date/Time of Note Date/Time of Note DATE: 07/20/18 TIME: 08:39 Assessment/Plan VTE Prophylaxis Risk score (from Ns)>0 risk: 5 SCD applied (from Ns): Yes Pharmacological prophylaxis: LMWH Lines/Catheters IV Catheter Type (from [facility]): Peripheral IV Urinary Cath still in place: No Assessment/Plan Hospital Course 77YO Woman h/o stenotic sigmoid s/p sigmoid resection now POD 6. Found pt today sitting in chair, in NAD. Wants to drink apple sauce. Denies CP/SOB/F/C/NV at this time. had some NV early this AM. Having BMs but no flatus. VS with some intermittent tachycardia. Making urine but Na/Cl low - probably due to emesis. On exam, appears well, Abd soft, NTTP, mildly distended, wound C/D/I. WBC WNL today, afebrile, urine Leuk/Nit negative. CXR unremarkable - no fluid overload. Probable ileus. Will give NS bolus to replace emesis loss, continue OOB. Sips of clears for meds. Medical mgmt per IM. If no bowel function tomorrow, consider TPN and SBFT. D/W IM. Result Diagram: 07/20/18 0450 07/20/18 0450 Results 24hrs Laboratory Tests Test 07/19/18 10:30 07/20/18 04:50 Urine Color YI Urine Clarity SLIGHTLY CLOUDY A Urine pH 6.0 Urine Specific [place] 1.021 Urine Ketones NEGATIVE Urine Nitrite NEGATIVE Urine Bilirubin NEGATIVE Urine Urobilinogen NEGATIVE Urine Leukocyte Esterase NEGATIVE Urine Microscopic RBC 18 H Urine Microscopic WBC 11 H Urine Squamous Epithelial Cells FEW Urine Calcium Oxalate Crystals MANY A Urine Bacteria FEW A Urine Mucus MODERATE Urine Hemoglobin 2+ H Urine Glucose NEGATIVE Urine Total Protein NEGATIVE White Blood Count 8.6 # Red Blood Count 2.96 L Hemoglobin 9.0 L Hematocrit 28.0 L Mean Corpuscular Volume 94.6 Mean Corpuscular Hemoglobin 30.4 Mean Corpuscular Hemoglobin Concent 32.1 Red Cell Distribution Width 16.8 H Platelet Count 310 Mean Platelet Volume 10.0 Immature Granulocytes % 1.300 H Neutrophils % 81.3 H Lymphocytes % 5.7 L Monocytes % 8.8 Eosinophils % 2.8 Basophils % 0.1 Nucleated Red Blood Cells % 0.0 Immature Granulocytes # 0.110 H Neutrophils # 7.0 Lymphocytes # 0.5 L Monocytes # 0.8 Eosinophils # 0.2 Basophils # 0.0 Nucleated Red Blood Cells # 0.0 Sodium Level 129 L Potassium Level 4.2 Chloride Level 94 L Carbon Dioxide Level 27 Anion Gap 8 Blood Urea Nitrogen 5 L Creatinine 0.61 Est Glomerular Filtrat Rate mL/min Glucose Level 128 Calcium Level 8.4 Subjective 24 Hr Interval Summary Constitutional: no complaints Cardiovascular: no complaints Gastrointestinal: nausea (None this AM, wants apple sauce) Exam/Review of Systems Exam Vitals Vital Signs Date Temp Pulse Resp B/P (MAP) Pulse Ox O2 O2 Flow FiO2 Time Delivery Rate 07/20/18 98.0 106 16 146/111 97 07:53 (123) 07/20/18 2.0 04:12 07/20/18 Nasal 04:11 Cannula Intake and Output 07/19/18 07/19/18 07/20/18 1515:00 23:00 07:00 IntakeIntake Total 1000 ml 1600 ml 1400 ml OutputOutput Total 200 ml 380 ml BalanceBalance 1000 ml 1400 ml 1020 ml Constitutional: alert Respiratory: clear to auscultation Cardiovascular: regular rate and rhythm Gastrointestinal: soft (mildly distended, NTTP, wound C/D/I) Extremities: other (-C/C/E, pt found sitting in chair) Results Results 24hrs Laboratory Tests Test 07/19/18 10:30 07/20/18 04:50 Urine Color YI Urine Clarity SLIGHTLY CLOUDY A Urine pH 6.0 Urine Specific [place] 1.021 Urine Ketones NEGATIVE Urine Nitrite NEGATIVE Urine Bilirubin NEGATIVE Urine Urobilinogen NEGATIVE Urine Leukocyte Esterase NEGATIVE Urine Microscopic RBC 18 H Urine Microscopic WBC 11 H Urine Squamous Epithelial Cells FEW Urine Calcium Oxalate Crystals MANY A Urine Bacteria FEW A Urine Mucus MODERATE Urine Hemoglobin 2+ H Urine Glucose NEGATIVE Urine Total Protein NEGATIVE White Blood Count 8.6 # Red Blood Count 2.96 L Hemoglobin 9.0 L Hematocrit 28.0 L Mean Corpuscular Volume 94.6 Mean Corpuscular Hemoglobin 30.4 Mean Corpuscular Hemoglobin Concent 32.1 Red Cell Distribution Width 16.8 H Platelet Count 310 Mean Platelet Volume 10.0 Immature Granulocytes % 1.300 H Neutrophils % 81.3 H Lymphocytes % 5.7 L Monocytes % 8.8 Eosinophils % 2.8 Basophils % 0.1 Nucleated Red Blood Cells % 0.0 Immature Granulocytes # 0.110 H Neutrophils # 7.0 Lymphocytes # 0.5 L Monocytes # 0.8 Eosinophils # 0.2 Basophils # 0.0 Nucleated Red Blood Cells # 0.0 Sodium Level 129 L Potassium Level 4.2 Chloride Level 94 L Carbon Dioxide Level 27 Anion Gap 8 Blood Urea Nitrogen 5 L Creatinine 0.61 Est Glomerular Filtrat Rate mL/min Glucose Level 128 Calcium Level 8.4 Medications Medication Current Medications Hydromorphone HCl (Dilaudid) 0.2 mg Q2H PRN IV .PAIN 1-5; Start 07/14/18 at 14:30 Hydromorphone HCl (Dilaudid) 0.4 mg Q2H PRN IV .PAIN 6-10; Start 07/14/18 at 14:30 Nalbuphine HCl (Nubain) 10 mg Q4H PRN IV .PRURITUS; Start 07/14/18 at 14:30 Ondansetron HCl (Zofran Inj) 4 mg Q6H PRN IV .NAUSEA/VOMITING Last administered on 07/20/18at 04:21; Admin Dose 4 MG; Start 07/14/18 at 14:30 Naloxone HCl (Narcan) 0.2 mg Q2M PRN IV .RESP RATE; Start 07/14/18 at 14:30 Miscellaneous Information (* Miscellaneous Pharmacy Order) FENTANYL: 20 MCG SPI... GIVEN NEURAXIAL XX ; Start 07/14/18 at 14:30 Hydromorphone HCl (Dilaudid) 0.5 mg Q2 PRN IV PAIN LEVEL 6-10; Start 07/14/18 at 16:00 Diphenhydramine HCl (Benadryl) 25 mg Q6H PRN IV ITCHING; Start 07/14/18 at 16:00 Ondansetron HCl (Zofran Inj) 4 mg Q6H PRN IV NAUSEA AND/OR VOMITING; Start 07/14/18 at 16:00 Pantoprazole (Protonix Tab) 40 mg DAILY@06 PO Last administered on 07/20/18at 00:36; Admin Dose 40 MG; Start 07/15/18 at 06:00 Enoxaparin Sodium (Lovenox) 30 mg DAILY@07 SC Last administered on 07/20/18at 05:54; Admin Dose 30 MG; Start 07/15/18 at 12:00 Lorazepam (Ativan) 0.5 mg HS MAY REPEAT X 1 PRN IV INSOMNIA; Start 07/14/18 at 16:00 Bupropion HCl (Wellbutrin Sr) 150 mg DAILY PO Last administered on 07/19/18 09:38; Admin Dose 150 MG; Start 07/15/18 at 09:00 Cholecalciferol (Vitamin D) 1,000 unit DAILY PO Last administered on 07/18/18 09:11; Admin Dose 1,000 UNIT; Start 07/15/18 at 09:00 Cyanocobalamin (Vitamin B12) 1,500 mcg DAILY PO Last administered on 07/18/18 09:11; Admin Dose 1,500 MCG; Start 07/15/18 at 09:00 Escitalopram Oxalate (Lexapro) 10 mg DAILY PO Last administered on 07/19/18 12:03; Admin Dose 10 MG; Start 07/14/18 at 22:00 Levothyroxine Sodium (Synthroid) 75 mcg BEFORE BREAKFAST PO Last administered on 07/20/18 05:51; Admin Dose 75 MCG; Start 07/15/18 at 07:00 Loratadine (Claritin) 10 mg DAILY PO Last administered on 07/19/18 12:03; Admin Dose 10 MG; Start 07/15/18 at 09:00 Losartan Potassium (Cozaar) 50 mg DAILY PO Last administered on 07/19/18 09:38; Admin Dose 50 MG; Start 07/15/18 at 09:00 Niacin (Niacin) 500 mg BID PO Last administered on 07/19/18 21:06; Admin Dose 500 MG; Start 07/14/18 at 21:00 Oxycodone/ Acetaminophen (Percocet (5/ 325)) 1 tab Q4H PRN PO PAIN Last administered on 07/19/18 10:28; Admin Dose 1 TAB; Start 07/15/18 at 07:30 Prednisone (Prednisone) 5 mg DAILY PO Last administered on 07/18/18 09:25; Admin Dose 5 MG; Start 07/15/18 at 09:00 Prednisone (Prednisone) 3 mg DAILY PO Last administered on 07/18/18 09:13; Admin Dose 3 MG; Start 07/15/18 at 09:00 Ferrous Sulfate (Ferrous Sulfate (Ec)) 325 mg DAILY PO Last administered on 07/18/18 09:10; Admin Dose 325 MG; Start 07/18/18 at 09:00; Status Hold Phenol (Cepastat Lozenge) 1 lozenge Q1H PRN MT cough Last administered on 07/18/18 19:53; Admin Dose 1 LOZENGE; Start 07/17/18 at 17:30 Acetaminophen (Tylenol Tab) 650 mg Q6H PRN PO MILD PAIN(1-3)OR ELEVATED TEMP Last administered on 07/18/18 06:32; Admin Dose 650 MG; Start 07/18/18 at 06:00 Potassium Chloride/Dextrose/ Sod Cl 1,000 ml @ 100 mls/hr Q10H IV Last administered on 07/20/18 05:52; Admin Dose 100 MLS/HR; Start 07/19/18 at 09:00 Ketorolac Tromethamine (Toradol) 15 mg Q6H PRN IV PAIN; Start 07/19/18 at 11:30 Albuterol (Proventil 0.083% (Neb)) 1.25 mg Q4H RESP THERAPY HHN Last administered on 07/20/18 04:11; Admin Dose 1.25 MG; Start 07/20/18 at 05:00 TAMMY FLORES M.D. Jul 20, 2018 08:45
[2018-07-20] MEDS: CHOLECALCIFEROL 1,000 UNIT TAB PO SCH (09:00)
[2018-07-20] MEDS: NIACIN 500 MG TAB PO SCH ×2 (09:00→20:32)
[2018-07-20] MEDS: CYANOCOBALAMIN 500 MCG TAB PO SCH (09:00)
[2018-07-20] MEDS: predniSONE 1 MG TAB PO SCH (09:03)
[2018-07-20] MEDS: BUPROPION (SR) 150 MG TAB PO SCH (09:04)
[2018-07-20] MEDS: predniSONE 5 MG TAB PO SCH (09:04)
[2018-07-20] MEDS: LORATADINE 10 MG TAB PO SCH (09:05)
[2018-07-20] MEDS: ESCITALOPRAM 10 MG TAB PO SCH (09:05)
[2018-07-20] MEDS: LOSARTAN 50 MG TAB PO SCH (09:11)
[2018-07-20] MEDS: D5-NS + KCL 20 MEQ 1,000 ML IV SCH ×2 (09:35→22:50)
--- NOTE | 2018-07-20 13:53 | CONS ---
Assessment/Plan Assessment/Plan Hospital Course (Demo Recall) 77 yo F with PMH Rheumatoid arthritis on chronic steroids and methotrexate, HTN, hypothyroid, depression, diverticula disease presented to [facility] for elective sigmoid resection secondary to diverticula disease with stricture Assessment/Plan (Daily) 1. Nausea with vomiting - Discussed with Dr. Kilgore as well as daughter. Will limit PO intake until patient passing gas/stool then will slowly advance diet. If no improvement, will start TPN tomorrow and order SBFT. Daughter in agreement. Daughter concerned that mishap with recording of blood transfusion led to abdominal issues but ensured her its most likely coincidental - KUB results noted with obstruction vs ileus. SBFT tomorrow if no improvement in condition today - Encouraged patient to ambulate. 2. Iron deficiency anemia - stable - Counseled about importance of taking iron supplements. Also encouraged to eat more foods rich in iron 3. Rheumatoid arthritis- stable - continue on Prednisone 8mg daily. - continue methotrexate as usual - Tylenol PRN for joint discomfort 4. Acute sigmoid diverticulitis with stricture s/p lap sigmoid resection POD #6 - doing well post operatively and tolerating current diet - General surgery to manage postoperative course - pain control 5. Bullous Pemphigoid - continue steroids at this time - resume Plaquenil upon discharge 6. HTN - stable - continue home medication 7. Depression- stable - continue on Wellbutrin and Lexapro 8. Hypothyroidism - on levothyroxine 9. Allergic rhinitis - continue home Claritin dose 10. h/o hydrocephalus s/p shunt - stable 11. R hearing loss - h/o schwannoma 12. GERD - PPI 13. Disposition - Will monitor for bowel function and if producing gas/BM will advance diet per Dr. Kilgore recommendations. If no improvement, TPN and SBFT tomorrow Consultation Date/Type/Reason Admit Date/Time Jul 14, 2018 at 10:14 Initial Consult Date 07/14/18 Type of Consult Medicine Date/Time of Note DATE: 07/20/18 TIME: 13:48 24 HR Interval Summary Free Text/Dictation Patient fatigued and still unable to keep any liquids or food down. Daughter at bedside and states she vomited after any type of PO intake. Not passing gas or stool. Exam/Review of Systems Exam Vitals Vital Signs Date Temp Pulse Resp B/P (MAP) Pulse Ox O2 O2 Flow FiO2 Time Delivery Rate 07/20/18 86 18 96 Nasal 2.0 12:58 Cannula 07/20/18 98.0 146/60 07:53 (88) Intake and Output 07/19/18 07/19/18 07/20/18 1515:00 23:00 07:00 IntakeIntake Total 1000 ml 1600 ml 1400 ml OutputOutput Total 200 ml 380 ml BalanceBalance 1000 ml 1400 ml 1020 ml Exam General: Patient is laying in bed, fatigued Neck: Supple Respiratory: Clear to auscultation bilaterally. no wheezing or rhonchi Cardiovascular: regular rate and rhythm, systolic murmur appreciated Gastrointestinal: soft, nontender, nondistended, bowel sounds heard. diminished. Neurological: Moves all extremities spontaneously Results Result Diagram: 07/20/180 07/20/18 0450 Results 24hrs Laboratory Tests Test 07/20/18 04:50 White Blood Count 8.6 # Red Blood Count 2.96 L Hemoglobin 9.0 L Hematocrit 28.0 L Mean Corpuscular Volume 94.6 Mean Corpuscular Hemoglobin 30.4 Mean Corpuscular Hemoglobin Concent 32.1 Red Cell Distribution Width 16.8 H Platelet Count 310 Mean Platelet Volume 10.0 Immature Granulocytes % 1.300 H Neutrophils % 81.3 H Lymphocytes % 5.7 L Monocytes % 8.8 Eosinophils % 2.8 Basophils % 0.1 Nucleated Red Blood Cells % 0.0 Immature Granulocytes # 0.110 H Neutrophils # 7.0 Lymphocytes # 0.5 L Monocytes # 0.8 Eosinophils # 0.2 Basophils # 0.0 Nucleated Red Blood Cells # 0.0 Sodium Level 129 L Potassium Level 4.2 Chloride Level 94 L Carbon Dioxide Level 27 Anion Gap 8 Blood Urea Nitrogen 5 L Creatinine 0.61 Est Glomerular Filtrat Rate mL/min Glucose Level 128 Calcium Level 8.4 Medications Medication Current Medications Hydromorphone HCl (Dilaudid) 0.2 mg Q2H PRN IV .PAIN 1-5; Start 07/14/18 at 14:30 Hydromorphone HCl (Dilaudid) 0.4 mg Q2H PRN IV .PAIN 6-10; Start 07/14/18 at 14:30 Nalbuphine HCl (Nubain) 10 mg Q4H PRN IV .PRURITUS; Start 07/14/18 at 14:30 Ondansetron HCl (Zofran Inj) 4 mg Q6H PRN IV .NAUSEA/VOMITING Last administered on 07/20/18 10:26; Admin Dose 4 MG; Start 07/14/18 at 14:30 Naloxone HCl (Narcan) 0.2 mg Q2M PRN IV .RESP RATE; Start 07/14/18 at 14:30 Miscellaneous Information (* Miscellaneous Pharmacy Order) FENTANYL: 20 MCG SPI... GIVEN NEURAXIAL XX ; Start 07/14/18 at 14:30 Hydromorphone HCl (Dilaudid) 0.5 mg Q2 PRN IV PAIN LEVEL 6-10; Start 07/14/18 at 16:00 Diphenhydramine HCl (Benadryl) 25 mg Q6H PRN IV ITCHING; Start 07/14/18 at 16:00 Ondansetron HCl (Zofran Inj) 4 mg Q6H PRN IV NAUSEA AND/OR VOMITING; Start 07/14/18 at 16:00 Pantoprazole (Protonix Tab) 40 mg DAILY@06 PO Last administered on 07/20/18 00:36; Admin Dose 40 MG; Start 07/15/18 at 06:00 Enoxaparin Sodium (Lovenox) 30 mg DAILY@07 SC Last administered on 07/20/18 05:54; Admin Dose 30 MG; Start 07/15/18 at 12:00 Lorazepam (Ativan) 0.5 mg HS MAY REPEAT X 1 PRN IV INSOMNIA; Start 07/14/18 at 16:00 Bupropion HCl (Wellbutrin Sr) 150 mg DAILY PO Last administered on 07/20/18 09:04; Admin Dose 150 MG; Start 07/15/18 at 09:00 Cholecalciferol (Vitamin D) 1,000 unit DAILY PO Last administered on 07/18/18 09:11; Admin Dose 1,000 UNIT; Start 07/15/18 at 09:00 Cyanocobalamin (Vitamin B12) 1,500 mcg DAILY PO Last administered on 07/18/18 09:11; Admin Dose 1,500 MCG; Start 07/15/18 at 09:00 Escitalopram Oxalate (Lexapro) 10 mg DAILY PO Last administered on 07/20/18 09:05; Admin Dose 10 MG; Start 07/14/18 at 22:00 Levothyroxine Sodium (Synthroid) 75 mcg BEFORE BREAKFAST PO Last administered on 07/20/18 05:51; Admin Dose 75 MCG; Start 07/15/18 at 07:00 Loratadine (Claritin) 10 mg DAILY PO Last administered on 07/20/18 09:05; Admin Dose 10 MG; Start 07/15/18 at 09:00 Losartan Potassium (Cozaar) 50 mg DAILY PO Last administered on 07/20/18 09:11; Admin Dose 50 MG; Start 07/15/18 at 09:00 Niacin (Niacin) 500 mg BID PO Last administered on 07/19/18 21:06; Admin Dose 500 MG; Start 07/14/18 at 21:00 Oxycodone/ Acetaminophen (Percocet (5/ 325)) 1 tab Q4H PRN PO PAIN Last administered on 07/19/18 10:28; Admin Dose 1 TAB; Start 07/15/18 at 07:30 Prednisone (Prednisone) 5 mg DAILY PO Last administered on 07/20/18 09:04; Admin Dose 5 MG; Start 07/15/18 at 09:00 Prednisone (Prednisone) 3 mg DAILY PO Last administered on 07/20/18 09:03; Admin Dose 3 MG; Start 07/15/18 at 09:00 Ferrous Sulfate (Ferrous Sulfate (Ec)) 325 mg DAILY PO Last administered on 07/18/18 09:10; Admin Dose 325 MG; Start 07/18/18 at 09:00; Status Hold Phenol (Cepastat Lozenge) 1 lozenge Q1H PRN MT cough Last administered on 07/18/18 19:53; Admin Dose 1 LOZENGE; Start 07/17/18 at 17:30 Acetaminophen (Tylenol Tab) 650 mg Q6H PRN PO MILD PAIN(1-3)OR ELEVATED TEMP Last administered on 07/18/18 06:32; Admin Dose 650 MG; Start 07/18/18 at 06:00 Albuterol (Proventil 0.083% (Neb)) 1.25 mg Q4H RESP THERAPY HHN Last administered on 07/20/18 12:49; Admin Dose 1.25 MG; Start 07/20/18 at 05:00 Potassium Chloride/Dextrose/ Sod Cl 1,000 ml @ 75 mls/hr [id number] IV Last administered on 07/20/18at 09:35; Admin Dose 75 MLS/HR; Start 07/20/18 at 09:30 FATUMA KEARNS MD Jul 20, 2018 13:53
[2018-07-20 15:18] VITALS: BP 115/59; PULSE 91; RESP 20
[2018-07-20 20:21] VITALS: BP 118/71; PULSE 111; RESP 18
[2018-07-21] MEDS: ALBUTEROL 0.083% (NEB) 2.5 MG/3 ML AMP HHN SCH ×4 (01:00→21:19)
[2018-07-21 01:46] VITALS: BP 122/65; RESP 16
[2018-07-21] MEDS: D5-NS + KCL 20 MEQ 1,000 ML IV SCH (06:57)
[2018-07-21] MEDS: LEVOTHYROXINE 75 MCG TAB PO SCH (06:58)
[2018-07-21] MEDS: PANTOPRAZOLE (EC) 40 MG TAB PO SCH (06:59)
[2018-07-21] MEDS: ENOXAPARIN 30 MG/0.3 ML SYG SC SCH (07:03)
[2018-07-21 07:58] VITALS: BP 110/62; PULSE 92; RESP 18
--- NOTE | 2018-07-21 08:23 | PN ---
Date/Time of Note Date/Time of Note DATE: 07/21/18 TIME: 08:19 Assessment/Plan VTE Prophylaxis Risk score (from Nsg)>0 risk: 8 SCD applied (from Nsg): Yes Pharmacological prophylaxis: LMWH Lines/Catheters IV Catheter Type (from Nrs): Peripheral IV Urinary Cath still in place: No Assessment/Plan Hospital Course 77YO Woman h/o stenotic sigmoid s/p sigmoid resection now POD 7. Found pt today sitting in chair, in NAD. Tolerating some sips. Has urge to have flatus/defecate. Having tiny BMs. No NV/F/C/SOB/CP. On exam, appears well sitting in chair. Abd soft/NM/ND/NT. Wounds OK. Pt denies large BM/flatus. Will get SBFT and f/u results. If appears has ileus/SBO will start TPN. If SBFT conjures up a BM, will try diet. Continue OOB. Med Mgmt per IM. Result Diagram: 07/21/1844407/21/185 Results 24hrs Laboratory Tests Test 07/21/18 04:45 White Blood Count 11.6 #H Red Blood Count 2.63 L Hemoglobin 8.0 L Hematocrit 24.7 L Mean Corpuscular Volume 93.9 Mean Corpuscular Hemoglobin 30.4 Mean Corpuscular Hemoglobin Concent 32.4 Red Cell Distribution Width 16.5 H Platelet Count 303 Mean Platelet Volume 10.3 Immature Granulocytes % 1.100 H Neutrophils % 81.5 H Lymphocytes % 5.2 L Monocytes % 9.8 Eosinophils % 2.3 Basophils % 0.1 Nucleated Red Blood Cells % 0.0 Immature Granulocytes # 0.130 H Neutrophils # 9.5 H Lymphocytes # 0.6 L Monocytes # 1.1 H Eosinophils # 0.3 Basophils # 0.0 Nucleated Red Blood Cells # 0.0 Sodium Level 132 L Potassium Level 3.9 Chloride Level 98 Carbon Dioxide Level 26 Anion Gap 8 Blood Urea Nitrogen 6 L Creatinine 0.54 Est Glomerular Filtrat Rate mL/min Glucose Level 103 Calcium Level 8.3 L Subjective 24 Hr Interval Summary Constitutional: no complaints Respiratory: no complaints Cardiovascular: no complaints Gastrointestinal: no complaints (Feels urge for BM/flatus but none. No pain. ) Exam/Review of Systems Exam Vitals Vital Signs Date Temp Pulse Resp B/P (MAP) Pulse Ox O2 O2 Flow FiO2 Time Delivery Rate 07/21/18 91 18 93 Nasal 08:09 Cannula 07/21/18 98.7 110/62 07:58 (78) 07/21/18 2.0 05:24 Intake and Output 07/20/18 07/20/18 07/21/18 1515:00 23:00 07:00 IntakeIntake Total 350 ml 600 ml 600 ml BalanceBalance 350 ml 600 ml 600 ml Constitutional: alert, oriented Respiratory: clear to auscultation Cardiovascular: regular rate and rhythm Gastrointestinal: soft (NT/NM/ND, wound C/D/I) Results Results 24hrs Laboratory Tests Test 07/21/18 04:45 White Blood Count 11.6 #H Red Blood Count 2.63 L Hemoglobin 8.0 L Hematocrit 24.7 L Mean Corpuscular Volume 93.9 Mean Corpuscular Hemoglobin 30.4 Mean Corpuscular Hemoglobin Concent 32.4 Red Cell Distribution Width 16.5 H Platelet Count 303 Mean Platelet Volume 10.3 Immature Granulocytes % 1.100 H Neutrophils % 81.5 H Lymphocytes % 5.2 L Monocytes % 9.8 Eosinophils % 2.3 Basophils % 0.1 Nucleated Red Blood Cells % 0.0 Immature Granulocytes # 0.130 H Neutrophils # 9.5 H Lymphocytes # 0.6 L Monocytes # 1.1 H Eosinophils # 0.3 Basophils # 0.0 Nucleated Red Blood Cells # 0.0 Sodium Level 132 L Potassium Level 3.9 Chloride Level 98 Carbon Dioxide Level 26 Anion Gap 8 Blood Urea Nitrogen 6 L Creatinine 0.54 Est Glomerular Filtrat Rate mL/min Glucose Level 103 Calcium Level 8.3 L Medications Medication Current Medications Hydromorphone HCl (Dilaudid) 0.2 mg Q2H PRN IV .PAIN 1-5; Start 07/14/18 at 14:30 Hydromorphone HCl (Dilaudid) 0.4 mg Q2H PRN IV .PAIN 6-10; Start 07/14/18 at 14:30 Nalbuphine HCl (Nubain) 10 mg Q4H PRN IV .PRURITUS; Start 07/14/18 at 14:30 Ondansetron HCl (Zofran Inj) 4 mg Q6H PRN IV .NAUSEA/VOMITING Last administered on 07/20/18at 10:26; Admin Dose 4 MG; Start 07/14/18 at 14:30 Naloxone HCl (Narcan) 0.2 mg Q2M PRN IV .RESP RATE; Start 07/14/18 at 14:30 Miscellaneous Information (* Miscellaneous Pharmacy Order) FENTANYL: 20 MCG SPI... GIVEN NEURAXIAL XX ; Start 07/14/18 at 14:30 Hydromorphone HCl (Dilaudid) 0.5 mg Q2 PRN IV PAIN LEVEL 6-10; Start 07/14/18 at 16:00 Diphenhydramine HCl (Benadryl) 25 mg Q6H PRN IV ITCHING; Start 07/14/18 at 16:00 Ondansetron HCl (Zofran Inj) 4 mg Q6H PRN IV NAUSEA AND/OR VOMITING; Start 07/14/18 at 16:00 Pantoprazole (Protonix Tab) 40 mg DAILY@06 PO Last administered on 07/21/18 06:59; Admin Dose 40 MG; Start 07/15/18 at 06:00 Enoxaparin Sodium (Lovenox) 30 mg DAILY@07 SC Last administered on 07/21/18 07:03; Admin Dose 30 MG; Start 07/15/18 at 12:00 Lorazepam (Ativan) 0.5 mg HS MAY REPEAT X 1 PRN IV INSOMNIA; Start 07/14/18 at 16:00 Bupropion HCl (Wellbutrin Sr) 150 mg DAILY PO Last administered on 07/20/18 09:04; Admin Dose 150 MG; Start 07/15/18 at 09:00 Cholecalciferol (Vitamin D) 1,000 unit DAILY PO Last administered on 07/18/18 09:11; Admin Dose 1,000 UNIT; Start 07/15/18 at 09:00 Cyanocobalamin (Vitamin B12) 1,500 mcg DAILY PO Last administered on 07/18/18 09:11; Admin Dose 1,500 MCG; Start 07/15/18 at 09:00 Escitalopram Oxalate (Lexapro) 10 mg DAILY PO Last administered on 07/20/18 09:05; Admin Dose 10 MG; Start 07/14/18 at 22:00 Levothyroxine Sodium (Synthroid) 75 mcg BEFORE BREAKFAST PO Last administered on 07/21/18 06:58; Admin Dose 75 MCG; Start 07/15/18 at 07:00 Loratadine (Claritin) 10 mg DAILY PO Last administered on 07/20/18 09:05; Admin Dose 10 MG; Start 07/15/18 at 09:00 Losartan Potassium (Cozaar) 50 mg DAILY PO Last administered on 07/20/18 09:11; Admin Dose 50 MG; Start 07/15/18 at 09:00 Niacin (Niacin) 500 mg BID PO Last administered on 07/20/18 20:32; Admin Dose 500 MG; Start 07/14/18 at 21:00 Oxycodone/ Acetaminophen (Percocet (5/ 325)) 1 tab Q4H PRN PO PAIN Last administered on 07/19/18 10:28; Admin Dose 1 TAB; Start 07/15/18 at 07:30 Prednisone (Prednisone) 5 mg DAILY PO Last administered on 07/20/18 09:04; Admin Dose 5 MG; Start 07/15/18 at 09:00 Prednisone (Prednisone) 3 mg DAILY PO Last administered on 07/20/18 09:03; Admin Dose 3 MG; Start 07/15/18 at 09:00 Ferrous Sulfate (Ferrous Sulfate (Ec)) 325 mg DAILY PO Last administered on 07/18/18 09:10; Admin Dose 325 MG; Start 07/18/18 at 09:00; Status Hold Phenol (Cepastat Lozenge) 1 lozenge Q1H PRN MT cough Last administered on 07/18/18 19:53; Admin Dose 1 LOZENGE; Start 07/17/18 at 17:30 Acetaminophen (Tylenol Tab) 650 mg Q6H PRN PO MILD PAIN(1-3)OR ELEVATED TEMP Last administered on 07/18/18 06:32; Admin Dose 650 MG; Start 07/18/18 at 06:00 Albuterol (Proventil 0.083% (Neb)) 1.25 mg Q4H RESP THERAPY HHN Last administered on 07/21/18 08:09; Admin Dose 1.25 MG; Start 07/20/18 at 05:00 Potassium Chloride/Dextrose/ Sod Cl 1,000 ml @ 75 mls/hr [id number] IV Last administered on 07/21/18 06:57; Admin Dose 75 MLS/HR; Start 07/20/18 at 09:30 TAMMY FLORES M.D. Jul 21, 2018 08:23
[2018-07-21] MEDS: predniSONE 1 MG TAB PO SCH (09:08)
[2018-07-21] MEDS: NIACIN 500 MG TAB PO SCH ×2 (09:08→20:39)
[2018-07-21] MEDS: CHOLECALCIFEROL 1,000 UNIT TAB PO SCH (09:08)
[2018-07-21] MEDS: BUPROPION (SR) 150 MG TAB PO SCH (09:08)
[2018-07-21] MEDS: predniSONE 5 MG TAB PO SCH (09:08)
[2018-07-21] MEDS: LORATADINE 10 MG TAB PO SCH (09:08)
[2018-07-21] MEDS: ESCITALOPRAM 10 MG TAB PO SCH (09:08)
[2018-07-21] MEDS: LOSARTAN 50 MG TAB PO SCH (09:08)
[2018-07-21] MEDS: CYANOCOBALAMIN 500 MCG TAB PO SCH (09:12)
[2018-07-21] MEDS ORDERED: DIATR MEGLU/DIATRIZOATE SODIUM 120 ML BTL ONE (09:13)
[2018-07-21] MEDS: HYDROmorphONE 0.5 MG/0.5 ML SYG IV PRN ×2 (12:29→18:52)
[2018-07-21] MEDS: ONDANSETRON 4 MG INJ IV PRN ×2 (12:29→18:52)
[2018-07-21 13:42] VITALS: BP 118/80; PULSE 100; RESP 18
--- NOTE | 2018-07-21 14:43 | PN ---
Date/Time of Note Date/Time of Note DATE: 07/21/18 TIME: 14:40 Objective Vitals Vital Signs Date Temp Pulse Resp B/P (MAP) Pulse Ox O2 O2 Flow FiO2 Time Delivery Rate 07/21/18 97.7 100 18 118/80 95 13:42 (93) 07/21/18 Nasal 08:09 Cannula 07/21/18 2.0 05:24 Intake and Output 07/20/18 07/20/18 07/21/18 1515:00 23:00 07:00 IntakeIntake Total 350 ml 600 ml 600 ml BalanceBalance 350 ml 600 ml 600 ml Results Result Diagram: 07/21/18 0445 07/21/185 Medications Medications Current Medications Hydromorphone HCl (Dilaudid) 0.2 mg Q2H PRN IV .PAIN 1-5; Start 07/14/18 at 14:30 Hydromorphone HCl (Dilaudid) 0.4 mg Q2H PRN IV .PAIN 6-10; Start 07/14/18 at 14:30 Nalbuphine HCl (Nubain) 10 mg Q4H PRN IV .PRURITUS; Start 07/14/18 at 14:30 Ondansetron HCl (Zofran Inj) 4 mg Q6H PRN IV .NAUSEA/VOMITING Last administered on 07/21/18at 12:29; Admin Dose 4 MG; Start 07/14/18 at 14:30 Naloxone HCl (Narcan) 0.2 mg Q2M PRN IV .RESP RATE; Start 07/14/18 at 14:30 Miscellaneous Information (* Miscellaneous Pharmacy Order) FENTANYL: 20 MCG SPI... GIVEN NEURAXIAL XX ; Start 07/14/18 at 14:30 Hydromorphone HCl (Dilaudid) 0.5 mg Q2 PRN IV PAIN LEVEL 6-10 Last administered on 07/21/18at 12:29; Admin Dose 0.5 MG; Start 07/14/18 at 16:00 Diphenhydramine HCl (Benadryl) 25 mg Q6H PRN IV ITCHING; Start 07/14/18 at 16:00 Ondansetron HCl (Zofran Inj) 4 mg Q6H PRN IV NAUSEA AND/OR VOMITING; Start 07/14/18 at 16:00 Pantoprazole (Protonix Tab) 40 mg DAILY@06 PO Last administered on 07/21/18 06:59; Admin Dose 40 MG; Start 07/15/18 at 06:00 Enoxaparin Sodium (Lovenox) 30 mg DAILY@07 SC Last administered on 07/21/18 07:03; Admin Dose 30 MG; Start 07/15/18 at 12:00 Lorazepam (Ativan) 0.5 mg HS MAY REPEAT X 1 PRN IV INSOMNIA; Start 07/14/18 at 16:00 Bupropion HCl (Wellbutrin Sr) 150 mg DAILY PO Last administered on 07/21/18 09:08; Admin Dose 150 MG; Start 07/15/18 at 09:00 Cholecalciferol (Vitamin D) 1,000 unit DAILY PO Last administered on 07/21/18 09:08; Admin Dose 1,000 UNIT; Start 07/15/18 at 09:00 Cyanocobalamin (Vitamin B12) 1,500 mcg DAILY PO Last administered on 07/21/18 09:12; Admin Dose 1,500 MCG; Start 07/15/18 at 09:00 Escitalopram Oxalate (Lexapro) 10 mg DAILY PO Last administered on 07/21/18 09:08; Admin Dose 10 MG; Start 07/14/18 at 22:00 Levothyroxine Sodium (Synthroid) 75 mcg BEFORE BREAKFAST PO Last administered on 07/21/18 06:58; Admin Dose 75 MCG; Start 07/15/18 at 07:00 Loratadine (Claritin) 10 mg DAILY PO Last administered on 07/21/18 09:08; A dmin Dose 10 MG; Start 07/15/18 at 09:00 Losartan Potassium (Cozaar) 50 mg DAILY PO Last administered on 07/21/18 09:08; Admin Dose 50 MG; Start 07/15/18 at 09:00 Niacin (Niacin) 500 mg BID PO Last administered on 07/21/18 09:08; Admin Dose 500 MG; Start 07/14/18 at 21:00 Oxycodone/ Acetaminophen (Percocet (5/ 325)) 1 tab Q4H PRN PO PAIN Last administered on 07/19/18 10:28; Admin Dose 1 TAB; Start 07/15/18 at 07:30 Prednisone (Prednisone) 5 mg DAILY PO Last administered on 07/21/18 09:08; Admin Dose 5 MG; Start 07/15/18 at 09:00 Prednisone (Prednisone) 3 mg DAILY PO Last administered on 07/21/18 09:08; Admin Dose 3 MG; Start 07/15/18 at 09:00 Ferrous Sulfate (Ferrous Sulfate (Ec)) 325 mg DAILY PO Last administered on 07/18/18 09:10; Admin Dose 325 MG; Start 07/18/18 at 09:00; Status Hold Phenol (Cepastat Lozenge) 1 lozenge Q1H PRN MT cough Last administered on 07/18/18 19:53; Admin Dose 1 LOZENGE; Start 07/17/18 at 17:30 Acetaminophen (Tylenol Tab) 650 mg Q6H PRN PO MILD PAIN(1-3)OR ELEVATED TEMP Last administered on 07/18/18 06:32; Admin Dose 650 MG; Start 07/18/18 at 06:00 Albuterol (Proventil 0.083% (Neb)) 1.25 mg Q4H RESP THERAPY HHN Last administered on 07/21/18 08:09; Admin Dose 1.25 MG; Start 07/20/18 at 05:00 VTE Prophylaxis Risk score (from Ns)>0 risk: 8 SCD applied (from Ns): Yes Lines/Catheters IV Catheter Type: Moreno in Place: No Assessment/Plan Hospital Course Subjective Patient feels much better than yesterday, had bowel movement, abdominal pain has subsided significantly, no signs of bleeding Objective Physical exam General: Patient is laying in bed and answers questions appropriately Mentation: Patient is alert and oriented 4, Head: Normocephalic atraumatic Eyes: EOMI, pupils reactive to light Neck: Supple, nontender, midline Respiratory: Clear to auscultation bilaterally Cardiovascular: regular rate, no obvious murmurs Gastrointestinal: Minimally-tender to palpation, bowel sounds heard. Neurological: Moves all extremities spontaneously Skin: No new skin lesions 77 yo F with PMH Rheumatoid arthritis on chronic steroids and methotrexate, HTN, hypothyroid, depression, diverticula disease presented to [facility] for elective sigmoid resection secondary to diverticula disease with stricture Assessment/Plan (Daily) 1. Nausea with vomiting, significantly improved -Patient feeling much better -Small bowel follow-through does not show obstruction, clear liquid diet started per surgeon - Encouraged patient to ambulate. 2. Iron deficiency anemia - Counseled about importance of taking iron supplements. Also encouraged to eat more foods rich in iron -There appears to have been an acute drop in hemoglobin overnight, no signs of bleeding, however patient did receive more than 1 L of IV fluids overnight and was likely volume depleted due to being nauseated with vomiting and poor poor oral intake this combination likely contributed to possible hemodilution, will get repeat H&H to ensure stability. 3. Rheumatoid arthritis- stable - continue on Prednisone 8mg daily. - continue methotrexate as usual - Tylenol PRN for joint discomfort 4. Acute sigmoid diverticulitis with stricture s/p lap sigmoid resection - doing well post operatively and tolerating current diet - General surgery to manage postoperative course - pain control 5. Bullous Pemphigoid - continue steroids at this time - resume Plaquenil upon discharge 6. HTN - stable - continue home medication 7. Depression- stable - continue on Wellbutrin and Lexapro 8. Hypothyroidism - on levothyroxine 9. Allergic rhinitis - continue home Claritin dose 10. h/o hydrocephalus s/p shunt - stable 11. R hearing loss - h/o schwannoma 12. GERD - PPI 13. Disposition -Start on clear liquid diet per general surgery recommendations, pending repeat H&H for possible hemo-dilutional anemia. TIM PORTILLO Jul 21, 2018 14:43
[2018-07-22] VITALS (7 sets, daily range): BP systolic 106–167; BP diastolic 55–82; PULSE 82–114; RESP 18–20
[2018-07-22] MEDS: ALBUTEROL 0.083% (NEB) 2.5 MG/3 ML AMP HHN SCH ×2 (02:02→08:10)
[2018-07-22] MEDS: PANTOPRAZOLE (EC) 40 MG TAB PO SCH (06:09)
[2018-07-22] MEDS: LEVOTHYROXINE 75 MCG TAB PO SCH (06:10)
[2018-07-22] MEDS: ENOXAPARIN 30 MG/0.3 ML SYG SC SCH (06:11)
--- NOTE | 2018-07-22 08:36 | PN ---
Date/Time of Note Date/Time of Note DATE: 07/22/18 TIME: 08:31 Assessment/Plan VTE Prophylaxis Risk score (from Nsg)>0 risk: 7 SCD applied (from Nsg): Yes Pharmacological prophylaxis: LMWH Lines/Catheters IV Catheter Type (from Nrsg): Saline Lock Urinary Cath still in place: No Assessment/Plan Hospital Course 77YO Woman h/o stenotic sigmoid s/p sigmoid resection now POD 8.. Pt states she's OK, hungry, frustrated she's still here. Had large, liquidy BM. Denies CP/SOB/F/C. Some nausea reported but none at bedside. On exam, appears well, sitting in chair. Abd soft/NM/ND/NT. Much improved exam. Auscultation of heart reveals possible arrythmia (??), but denies sx. Will get EKG, Will try full liquids for now and see if tolerates, hopefully with large BM and soft abdomen pt will tolerate food. Also getting fingerstick for glucose 51 on chemistry. Result Diagram: 07/22/18 0434 07/22/18 0434 Results 24hrs Laboratory Tests Test 07/21/18 14:53 07/22/18 04:34 Hemoglobin 8.4 L 7.9 L Hematocrit 26.3 L 25.0 L White Blood Count 11.3 H Red Blood Count 2.55 L Mean Corpuscular Volume 98.0 Mean Corpuscular Hemoglobin 31.0 Mean Corpuscular Hemoglobin Concent 31.6 L Red Cell Distribution Width 16.9 H Platelet Count 336 Mean Platelet Volume 10.3 Immature Granulocytes % 1.800 H Neutrophils % 73.8 Lymphocytes % 9.8 L Monocytes % 11.3 H Eosinophils % 2.9 Basophils % 0.4 Nucleated Red Blood Cells % 0.0 Immature Granulocytes # 0.200 H Neutrophils # 8.3 H Lymphocytes # 1.1 Monocytes # 1.3 H Eosinophils # 0.3 Basophils # 0.0 Nucleated Red Blood Cells # 0.0 Sodium Level 137 Potassium Level 3.7 Chloride Level 100 Carbon Dioxide Level 24 Anion Gap 13 Blood Urea Nitrogen 8 Creatinine 0.72 Est Glomerular Filtrat Rate mL/min Glucose Level 51 #L Calcium Level 8.9 Phosphorus Level 3.8 Magnesium Level 1.6 L Subjective 24 Hr Interval Summary Constitutional: improved Respiratory: no complaints Cardiovascular: no complaints Gastrointestinal: nausea (had some but none at bedside, wants to eat pudding/cake) Genitourinary: no complaints Exam/Review of Systems Exam Vitals Vital Signs Date Temp Pulse Resp B/P (MAP) Pulse Ox O2 O2 Flow FiO2 Time Delivery Rate 07/22/18 89 16 95 Nasal 2.0 08:12 Cannula 07/22/18 98.2 119/62 07:53 (81) Intake and Output 07/21/18 07/21/18 07/22/18 1515:00 23:00 07:00 IntakeIntake Total 600 ml 50 ml BalanceBalance 600 ml 50 ml Constitutional: alert, oriented Respiratory: clear to auscultation Cardiovascular: irregular rhythm (??) Gastrointestinal: soft, non-tender (NM/ND, wound C/D/I) Results Results 24hrs Laboratory Tests Test 07/21/18 14:53 07/22/18 04:34 Hemoglobin 8.4 L 7.9 L Hematocrit 26.3 L 25.0 L White Blood Count 11.3 H Red Blood Count 2.55 L Mean Corpuscular Volume 98.0 Mean Corpuscular Hemoglobin 31.0 Mean Corpuscular Hemoglobin Concent 31.6 L Red Cell Distribution Width 16.9 H Platelet Count 336 Mean Platelet Volume 10.3 Immature Granulocytes % 1.800 H Neutrophils % 73.8 Lymphocytes % 9.8 L Monocytes % 11.3 H Eosinophils % 2.9 Basophils % 0.4 Nucleated Red Blood Cells % 0.0 Immature Granulocytes # 0.200 H Neutrophils # 8.3 H Lymphocytes # 1.1 Monocytes # 1.3 H Eosinophils # 0.3 Basophils # 0.0 Nucleated Red Blood Cells # 0.0 Sodium Level 137 Potassium Level 3.7 Chloride Level 100 Carbon Dioxide Level 24 Anion Gap 13 Blood Urea Nitrogen 8 Creatinine 0.72 Est Glomerular Filtrat Rate mL/min Glucose Level 51 #L Calcium Level 8.9 Phosphorus Level 3.8 Magnesium Level 1.6 L Medications Medication Current Medications Hydromorphone HCl (Dilaudid) 0.2 mg Q2H PRN IV .PAIN 1-5; Start 07/14/18 at 14:30 Hydromorphone HCl (Dilaudid) 0.4 mg Q2H PRN IV .PAIN 6-10; Start 07/14/18 at 14:30 Nalbuphine HCl (Nubain) 10 mg Q4H PRN IV .PRURITUS; Start 07/14/18 at 14:30 Ondansetron HCl (Zofran Inj) 4 mg Q6H PRN IV .NAUSEA/VOMITING Last administered on 07/21/18 18:52; Admin Dose 4 MG; Start 07/14/18 at 14:30 Naloxone HCl (Narcan) 0.2 mg Q2M PRN IV .RESP RATE; Start 07/14/18 at 14:30 Miscellaneous Information (* Miscellaneous Pharmacy Order) FENTANYL: 20 MCG SPI... GIVEN NEURAXIAL XX ; Start 07/14/18 at 14:30 Hydromorphone HCl (Dilaudid) 0.5 mg Q2 PRN IV PAIN LEVEL 6-10 Last administered on 07/21/18 18:52; Admin Dose 0.5 MG; Start 07/14/18 at 16:00 Diphenhydramine HCl (Benadryl) 25 mg Q6H PRN IV ITCHING; Start 07/14/18 at 16:00 Ondansetron HCl (Zofran Inj) 4 mg Q6H PRN IV NAUSEA AND/OR VOMITING; Start 07/14/18 at 16:00 Pantoprazole (Protonix Tab) 40 mg DAILY@06 PO Last administered on 07/22/18 06:09; Admin Dose 40 MG; Start 07/15/18 at 06:00 Enoxaparin Sodium (Lovenox) 30 mg DAILY@07 SC Last administered on 07/22/18 06:11; Admin Dose 30 MG; Start 07/15/18 at 12:00 Lorazepam (Ativan) 0.5 mg HS MAY REPEAT X 1 PRN IV INSOMNIA; Start 07/14/18 at 16:00 Bupropion HCl (Wellbutrin Sr) 150 mg DAILY PO Last administered on 07/21/18 09:08; Admin Dose 150 MG; Start 07/15/18 at 09:00 Cholecalciferol (Vitamin D) 1,000 unit DAILY PO Last administered on 07/21/18 09:08; Admin Dose 1,000 UNIT; Start 07/15/18 at 09:00 Cyanocobalamin (Vitamin B12) 1,500 mcg DAILY PO Last administered on 07/21/18 09:12; Admin Dose 1,500 MCG; Start 07/15/18 at 09:00 Escitalopram Oxalate (Lexapro) 10 mg DAILY PO Last administered on 07/21/18 09:08; Admin Dose 10 MG; Start 07/14/18 at 22:00 Levothyroxine Sodium (Synthroid) 75 mcg BEFORE BREAKFAST PO Last administered on 07/22/18 06:10; Admin Dose 75 MCG; Start 07/15/18 at 07:00 Loratadine (Claritin) 10 mg DAILY PO Last administered on 07/21/18 09:08; Admin Dose 10 MG; Start 07/15/18 at 09:00 Losartan Potassium (Cozaar) 50 mg DAILY PO Last administered on 07/21/18 09:08; Admin Dose 50 MG; Start 07/15/18 at 09:00 Niacin (Niacin) 500 mg BID PO Last administered on 07/21/18 20:39; Admin Dose 500 MG; Start 07/14/18 at 21:00 Oxycodone/ Acetaminophen (Percocet (5/ 325)) 1 tab Q4H PRN PO PAIN Last administered on 07/19/18 10:28; Admin Dose 1 TAB; Start 07/15/18 at 07:30 Prednisone (Prednisone) 5 mg DAILY PO Last administered on 07/21/18 09:08; Admin Dose 5 MG; Start 07/15/18 at 09:00 Prednisone (Prednisone) 3 mg DAILY PO Last administered on 07/21/18 09:08; Admin Dose 3 MG; Start 07/15/18 at 09:00 Ferrous Sulfate (Ferrous Sulfate (Ec)) 325 mg DAILY PO Last administered on 07/18/18 09:10; Admin Dose 325 MG; Start 07/18/18 at 09:00; Status Hold Phenol (Cepastat Lozenge) 1 lozenge Q1H PRN MT cough Last administered on 07/18/18 19:53; Admin Dose 1 LOZENGE; Start 07/17/18 at 17:30 Acetaminophen (Tylenol Tab) 650 mg Q6H PRN PO MILD PAIN(1-3)OR ELEVATED TEMP Last administered on 07/18/18 06:32; Admin Dose 650 MG; Start 07/18/18 at 06:00 Albuterol (Proventil 0.083% (Neb)) 1.25 mg Q6H RESP THERAPY HHN Last administered on 07/22/18at 08:10; Admin Dose 1.25 MG; Start 07/21/18 at 20:00 TAMMY FLORES M.D. Jul 22, 2018 08:36
[2018-07-22] MEDS: CYANOCOBALAMIN 500 MCG TAB PO SCH (09:00)
[2018-07-22] MEDS: predniSONE 5 MG TAB PO SCH (10:38)
[2018-07-22] MEDS: predniSONE 1 MG TAB PO SCH (10:38)
[2018-07-22] MEDS: NIACIN 500 MG TAB PO SCH ×2 (10:39→20:19)
[2018-07-22] MEDS: CHOLECALCIFEROL 1,000 UNIT TAB PO SCH (10:39)
[2018-07-22] MEDS: LOSARTAN 50 MG TAB PO SCH (10:39)
[2018-07-22] MEDS: BUPROPION (SR) 150 MG TAB PO SCH (10:39)
[2018-07-22] MEDS: ESCITALOPRAM 10 MG TAB PO SCH (10:40)
[2018-07-22] MEDS: LORATADINE 10 MG TAB PO SCH (10:40)
[2018-07-22] MEDS: D5-NS + KCL 20 MEQ 1,000 ML IV SCH ×2 (10:52→22:20)
[2018-07-22] MEDS: SUCRALFATE (100 MG/ML) 10ML CUP PO SCH ×3 (13:25→20:19)
[2018-07-22] MEDS ORDERED: LIDOCAINE/MYLANTA 40 ML BTL PO ONE (13:30)
--- NOTE | 2018-07-22 13:49 | PN ---
Date/Time of Note Date/Time of Note DATE: 07/22/18 TIME: 13:40 Objective Vitals Vital Signs Date Temp Pulse Resp B/P (MAP) Pulse Ox O2 O2 Flow FiO2 Time Delivery Rate 07/22/18 89 16 95 Nasal 2.0 08:12 Cannula 07/22/18 98.2 119/62 07:53 (81) Intake and Output 07/21/18 07/21/18 07/22/18 1515:00 23:00 07:00 IntakeIntake Total 600 ml 50 ml BalanceBalance 600 ml 50 ml Results Result Diagram: 07/22/18 0434 07/22/18 0434 Medications Medications Current Medications Hydromorphone HCl (Dilaudid) 0.2 mg Q2H PRN IV .PAIN 1-5; Start 07/14/18 at 14:30 Hydromorphone HCl (Dilaudid) 0.4 mg Q2H PRN IV .PAIN 6-10; Start 07/14/18 at 14:30 Nalbuphine HCl (Nubain) 10 mg Q4H PRN IV .PRURITUS; Start 07/14/18 at 14:30 Ondansetron HCl (Zofran Inj) 4 mg Q6H PRN IV .NAUSEA/VOMITING Last administered on 07/21/18at 18:52; Admin Dose 4 MG; Start 07/14/18 at 14:30 Naloxone HCl (Narcan) 0.2 mg Q2M PRN IV .RESP RATE; Start 07/14/18 at 14:30 Miscellaneous Information (* Miscellaneous Pharmacy Order) FENTANYL: 20 MCG SPI... GIVEN NEURAXIAL XX ; Start 07/14/18 at 14:30 Hydromorphone HCl (Dilaudid) 0.5 mg Q2 PRN IV PAIN LEVEL 6-10 Last administered on 07/21/18at 18:52; Admin Dose 0.5 MG; Start 07/14/18 at 16:00 Diphenhydramine HCl (Benadryl) 25 mg Q6H PRN IV ITCHING; Start 07/14/18 at 16:00 Pantoprazole (Protonix Tab) 40 mg DAILY@06 PO Last administered on 07/22/18at 06:09; Admin Dose 40 MG; Start 07/15/18 at 06:00 Enoxaparin Sodium (Lovenox) 30 mg DAILY@07 SC Last administered on 07/22/18 06:11; Admin Dose 30 MG; Start 07/15/18 at 12:00; Status Hold Lorazepam (Ativan) 0.5 mg HS MAY REPEAT X 1 PRN IV INSOMNIA; Start 07/14/18 at 16:00 Bupropion HCl (Wellbutrin Sr) 150 mg DAILY PO Last administered on 07/22/18 10:39; Admin Dose 150 MG; Start 07/15/18 at 09:00 Cholecalciferol (Vitamin D) 1,000 unit DAILY PO Last administered on 07/22/18 10:39; Admin Dose 1,000 UNIT; Start 07/15/18 at 09:00 Cyanocobalamin (Vitamin B12) 1,500 mcg DAILY PO Last administered on 07/21/18 09:12; Admin Dose 1,500 MCG; Start 07/15/18 at 09:00 Escitalopram Oxalate (Lexapro) 10 mg DAILY PO Last administered on 07/22/18 10:40; Admin Dose 10 MG; Start 07/14/18 at 22:00 Levothyroxine Sodium (Synthroid) 75 mcg BEFORE BREAKFAST PO Last administered on 07/22/18 06:10; Admin Dose 75 MCG; Start 07/15/18 at 07:00 Loratadine (Claritin) 10 mg DAILY PO Last administered on 07/22/18 10:40; Admin Dose 10 MG; Start 07/15/18 at 09:00 Losartan Potassium (Cozaar) 50 mg DAILY PO Last administered on 07/22/18 10: 39; Admin Dose 50 MG; Start 07/15/18 at 09:00 Niacin (Niacin) 500 mg BID PO Last administered on 07/22/18 10:39; Admin Dose 500 MG; Start 07/14/18 at 21:00 Oxycodone/ Acetaminophen (Percocet (5/ 325)) 1 tab Q4H PRN PO PAIN Last administered on 07/19/18 10:28; Admin Dose 1 TAB; Start 07/15/18 at 07:30 Prednisone (Prednisone) 5 mg DAILY PO Last administered on 07/22/18 10:38; Admin Dose 5 MG; Start 07/15/18 at 09:00 Prednisone (Prednisone) 3 mg DAILY PO Last administered on 07/22/18 10:38; Admin Dose 3 MG; Start 07/15/18 at 09:00 Ferrous Sulfate (Ferrous Sulfate (Ec)) 325 mg DAILY PO Last administered on 07/18/18 09:10; Admin Dose 325 MG; Start 07/18/18 at 09:00; Status Hold Phenol (Cepastat Lozenge) 1 lozenge Q1H PRN MT cough Last administered on 07/18/18 19:53; Admin Dose 1 LOZENGE; Start 07/17/18 at 17:30 Acetaminophen (Tylenol Tab) 650 mg Q6H PRN PO MILD PAIN(1-3)OR ELEVATED TEMP Last administered on 07/18/18 06:32; Admin Dose 650 MG; Start 07/18/18 at 06:00 Potassium Chloride/Dextrose/ Sod Cl 1,000 ml @ 75 mls/hr [id number] IV Last administered on 07/22/18 10:52; Admin Dose 75 MLS/HR; Start 07/22/18 at 09:00 Sucralfate (Carafate Susp) 1 gm QID PO Last administered on 07/22/18 13:25; Admin Dose 1 GM; Start 07/22/18 at 13:00 Albuterol/ Ipratropium (Duoneb) 3 ml Q6HWA RESP THERAPY HHN ; Start 07/22/18 at 14:00 Budesonide (Pulmicort (Neb)) 0.5 mg BID RESP THERAPY HHN ; Start 07/22/18 at 20:00 VTE Prophylaxis Risk score (from Ns)>0 risk: 7 SCD applied (from Ns): Yes Lines/Catheters IV Catheter Type: Moreno in Place: No Assessment/Plan Hospital Course Subjective Patient has no abdominal pain, only mild nausea this morning when taking a whole bunch of her meds, able to tolerate some p.o. Objective Physical exam General: Patient is laying in bed and answers questions appropriately Mentation: Patient is alert and oriented 4, mild memory loss at times Head: Normocephalic atraumatic Eyes: EOMI, pupils reactive to light Neck: Supple, nontender, midline Respiratory: Clear to auscultation bilaterally Cardiovascular: regular rate, no obvious murmurs Gastrointestinal: Minimally-tender to palpation, bowel sounds heard. Neurological: Moves all extremities spontaneously Skin: No new skin lesions 77 yo F with PMH Rheumatoid arthritis on chronic steroids and methotrexate, HTN, hypothyroid, depression, diverticula disease, brain tumor presented to [facility] for elective sigmoid resection secondary to diverticula disease with stricture Assessment/Plan (Daily) 1. Nausea with vomiting, significantly improved -Patient feeling much better -Small bowel follow-through does not show obstruction - Encouraged patient to ambulate. -Titrate up diet as tolerated -IV fluids to supplement as needed -Carafate and GI cocktail x1 aorta help for hiatal hernia causing some of this n ausea. 2. Iron deficiency anemia - Counseled about importance of taking iron supplements. Also encouraged to eat more foods rich in iron -Mild drop in hemoglobin yesterday coincided with findings consistent with hemodilution, blood draw this morning is still low, however not significantly low versus yesterday morning, most likely no change however will need to monitor very closely -We will repeat H&H to ensure no further drop -Patient had large bowel movements, observed by general surgeon, who per patient did not suspect any abnormality, however at this point due to recent bowel surgery, fecal occult is not very useful. as it will likely have microscopic positive results. -We will hold Lovenox for now as a precaution -Transfuse as needed Questionable arrhythmia -Patient has no history of A. fib or other arrhythmia, EKG is not very revealing, however upon physical exam there are a questionable auscultation of arrhythmia. -Upgrade to telemetry, cardiology, Dr. Sanchez will be consulted. -It is important to note the patient is completely asymptomatic with these findings, however will monitor. 3. Rheumatoid arthritis- stable - continue on Prednisone 8mg daily. - continue methotrexate as usual when able to tolerate p.o. better - Tylenol PRN for joint discomfort 4. Acute sigmoid diverticulitis with stricture s/p lap sigmoid resection - doing well post operatively and tolerating current diet - General surgery to manage postoperative course - pain control 5. Bullous Pemphigoid - continue steroids at this time - resume Plaquenil upon discharge 6. HTN - stable - continue home medication 7. Depression- stable - continue on Wellbutrin and Lexapro when tolerating 8. Hypothyroidism - on levothyroxine 9. Allergic rhinitis - continue home Claritin dose when tolerating 10. h/o hydrocephalus s/p shunt and brain mass - stable 11. R hearing loss - h/o schwannoma 12. GERD with hiatal hernia - PPI -Add Carafate and GI cocktail x1 for nausea related to above 13. Disposition -Full liquid diet, advance as tolerated, monitor very closely for GI bleed or other sources of bleed and arrhythmia. TIM PORTILLO Jul 22, 2018 13:49
[2018-07-22] MEDS ORDERED: ALBUTEROL/IPRATROPIUM (NEB) 3 ML AMP HHN SCH (14:00)
[2018-07-22] MEDS ORDERED: MAGNESIUM OXIDE 400 MG TAB PO ONE (14:30)
[2018-07-22] MEDS: ONDANSETRON 4 MG INJ IV PRN (15:26)
[2018-07-22] MEDS ORDERED: METOCLOPRAMIDE 10 MG INJ IV PRN (17:30)
[2018-07-22] MEDS ORDERED: TPN 1,000 ML IV SCH (17:52)
--- NOTE | 2018-07-22 18:53 | CONS ---
Assessment/Plan Assessment/Plan Hospital Course (Demo Recall) 78 yo post bowel surgery who now has asymptomatic MAT (multifocal atrial tachycardia), likely secondary to hypomagnesemia and inhaled beta agonists. Impression: Multifocal atrial tachycardia Hypomagnesemia Hypertension, controlled Recommendations Replete magnesium both po and IV -- patient had tingling in her throat with drinking mag citrate as a bowel prep. She should tolerate po and iv mag without problem Change albuterol to Xopenex EKG in am Consultation Date/Type/Reason Admit Date/Time Jul 14, 2018 at 10:14 Date of Consultation: Jul 22, 2018 Type of Consult Cardiology Reason for Consultation irregular heart rhythm Requesting Provider: TIM PORTILLO Date/Time of Note DATE: 07/22/18 TIME: 18:42 Hx of Present Illness 78 yo admitted for elective sigmoid resection, who also has rheumatoid arthritis, was noted to have an irregular heart rhythm on examination today by Dr. Portillo, who had her transferred to telemetry. EKG shows multifocal atrial tachycardia, as does telemetry, with heart rates in the low 100's. Patient herself feels unwell in general, but feels no palpitations or chest discomfort. No significant cardiac issues, but has followed up with Dr. Osbaldo Lewis as an outpatient, who she states has diagnosed her with mitral valve prolapse, but per his notes from 06/26/2018 her most recent echo done on that day demonstrates only 1+MR. Per his notes she has had PAC's, though baseline ekg and telemetry earlier in the admission do not demonstrate pac's and appear to be NSR. At baseline, she is not very active, does walk short distances with a walker, no chest pain or dyspnea with this minimal exertion. Constitutional: no complaints Eyes: no complaints ENT: other (dry mouth) Respiratory: no complaints Cardiovascular: no complaints Gastrointestinal: no complaints Genitourinary: no complaints Musculoskeletal: no complaints Skin: no complaints Neurologic: no complaints Endocrine: no complaints Lymphatic: no complaints Psychological: no complaints Immunologic: no complaints Past Medical History Medical History: high cholesterol, hypertension, other (diverticular disease) Home Meds Reported Medications Loratadine* (Loratadine*) 10 Mg Tablet, 10 MG PO DAILY, #30 TAB 07/14/18 Sennosides* (Senna Lax*) 8.6 Mg Tablet, 1 TAB PO BID, TAB 07/14/18 Cyanocobalamin* (Vitamin B12*) 500 Mcg Tab, 1500 MCG PO DAILY, TAB 07/14/18 Niacin* (Niacin*) 500 Mg Tablet, 500 MG PO BID, TAB 07/14/18 Cholecalciferol* (Vitamin D3*) 1,000 Unit Tablet, 1000 UNIT PO DAILY, TAB 07/14/18 Acetaminophen* (Acetaminophen*) 650 Mg Tablet, 650 MG PO DAILY PRN for PAIN, #30 TAB 07/14/18 Methotrexate* (Methotrexate*) 2.5 Mg Tab, 7.5 MG PO EVERY SATURDAY, TAB 07/14/18 Hydroxychloroquine Sulfate* (Plaquenil*) 200 Mg Tab, 300 MG PO DAILY, TAB 07/14/18 Prednisone* (Prednisone*) 1 Mg Tablet, 8 MG PO DAILY, TAB 07/14/18 Lactulose* (Lactulose*) 10 Gm/15 Ml Solution, 20 GM PO DAILY PRN for CONSTIPATION, ML 07/11/18 Escitalopram Oxalate* (Lexapro*) 10 Mg Tablet, 10 MG PO DAILY, #30 TAB 07/11/18 Omeprazole* (Omeprazole*) 40 Mg Capsule.dr, 40 MG PO DAILY, #30 CAP 07/11/18 Bupropion Hcl* (Wellbutrin SR*) 150 Mg Tablet.sa, 150 MG PO DAILY, TAB.SA 07/11/18 Levothyroxine Sodium* (Levothyroxine Sodium*) 75 Mcg Tablet, 75 MCG PO BEFORE BREAKFAST, #30 TAB 07/11/18 Losartan Potassium* (Losartan Potassium*) 50 Mg Tablet, 50 MG PO DAILY, TAB 07/11/18 Medications Current Medications Nalbuphine HCl (Nubain) 10 mg Q4H PRN IV .PRURITUS; Start 07/14/18 at 14:30 Ondansetron HCl (Zofran Inj) 4 mg Q6H PRN IV .NAUSEA/VOMITING Last administered on 07/22/18at 15:26; Admin Dose 4 MG; Start 07/14/18 at 14:30 Naloxone HCl (Narcan) 0.2 mg Q2M PRN IV .RESP RATE; Start 07/14/18 at 14:30 Miscellaneous Information (* Miscellaneous Pharmacy Order) FENTANYL: 20 MCG SPI... GIVEN NEURAXIAL XX ; Start 07/14/18 at 14:30 Hydromorphone HCl (Dilaudid) 0.5 mg Q2 PRN IV PAIN LEVEL 6-10 Last administered on 07/21/18 18:52; Admin Dose 0.5 MG; Start 07/14/18 at 16:00 Diphenhydramine HCl (Benadryl) 25 mg Q6H PRN IV ITCHING; Start 07/14/18 at 16:0 0 Pantoprazole (Protonix Tab) 40 mg DAILY@06 PO Last administered on 07/22/18 06:09; Admin Dose 40 MG; Start 07/15/18 at 06:00 Enoxaparin Sodium (Lovenox) 30 mg DAILY@07 SC Last administered on 07/22/18 06:11; Admin Dose 30 MG; Start 07/15/18 at 12:00; Status Hold Lorazepam (Ativan) 0.5 mg HS MAY REPEAT X 1 PRN IV INSOMNIA; Start 07/14/18 at 16:00 Bupropion HCl (Wellbutrin Sr) 150 mg DAILY PO Last administered on 07/22/18 10:39; Admin Dose 150 MG; Start 07/15/18 at 09:00 Cholecalciferol (Vitamin D) 1,000 unit DAILY PO Last administered on 07/22/18 10:39; Admin Dose 1,000 UNIT; Start 07/15/18 at 09:00 Cyanocobalamin (Vitamin B12) 1,500 mcg DAILY PO Last administered on 07/21/18 09:12; Admin Dose 1,500 MCG; Start 07/15/18 at 09:00 Escitalopram Oxalate (Lexapro) 10 mg DAILY PO Last administered on 07/22/18 10:40; Admin Dose 10 MG; Start 07/14/18 at 22:00 Levothyroxine Sodium (Synthroid) 75 mcg BEFORE BREAKFAST PO Last administered on 07/22/18 06:10; Admin Dose 75 MCG; Start 07/15/18 at 07:00 Loratadine (Claritin) 10 mg DAILY PO Last administered on 07/22/18 10:40; Adm in Dose 10 MG; Start 07/15/18 at 09:00 Losartan Potassium (Cozaar) 50 mg DAILY PO Last administered on 07/22/18 10:39; Admin Dose 50 MG; Start 07/15/18 at 09:00 Niacin (Niacin) 500 mg BID PO Last administered on 07/22/18 10:39; Admin Dose 500 MG; Start 07/14/18 at 21:00 Oxycodone/ Acetaminophen (Percocet (5/ 325)) 1 tab Q4H PRN PO PAIN Last administered on 07/19/18 10:28; Admin Dose 1 TAB; Start 07/15/18 at 07:30 Prednisone (Prednisone) 5 mg DAILY PO Last administered on 07/22/18 10:38; Admin Dose 5 MG; Start 07/15/18 at 09:00 Prednisone (Prednisone) 3 mg DAILY PO Last administered on 07/22/18 10:38; Admin Dose 3 MG; Start 07/15/18 at 09:00 Ferrous Sulfate (Ferrous Sulfate (Ec)) 325 mg DAILY PO Last administered on 07/18/18 09:10; Admin Dose 325 MG; Start 07/18/18 at 09:00; Status Hold Phenol (Cepastat Lozenge) 1 lozenge Q1H PRN MT cough Last administered on 07/18/18 19:53; Admin Dose 1 LOZENGE; Start 07/17/18 at 17:30 Acetaminophen (Tylenol Tab) 650 mg Q6H PRN PO MILD PAIN(1-3)OR ELEVATED TEMP Last administered on 07/18/18 06:32; Admin Dose 650 MG; Start 07/18/18 at 06:00 Potassium Chloride/Dextrose/ Sod Cl 1,000 ml @ 75 mls/hr [id number] IV Last administered on 07/22/18 10:52; Admin Dose 75 MLS/HR; Start 07/22/18 at 09:00 Sucralfate (Carafate Susp) 1 gm QID PO Last administered on 07/22/18 17:28; Admin Dose 1 GM; Start 07/22/18 at 13:00 Albuterol/ Ipratropium (Duoneb) 3 ml Q6HWA RESP THERAPY HHN Last administered on 07/22/18 14:18; Admin Dose 3 ML; Start 07/22/18 at 14:00 Budesonide (Pulmicort (Neb)) 0.5 mg BID RESP THERAPY HHN ; Start 07/22/18 at 2 0:00 Metoclopramide HCl (Reglan) 10 mg Q6H PRN IV nausea/vomiting; Start 07/22/18 at 17:30 Diagnostic Test (Pha) (Accu-Chek) 1 ea Q4 XX ; Start 07/22/18 at 21:00; Status UNV Total Parenteral Nutrition 1,000 ml @ 0 mls/hr Q0M IV ; Start 07/22/18 at 17:52; Status UNV Magnesium Sulfate 50 ml @ 25 mls/hr ONCE ONCE IVPB ; Start 07/22/18 at 18:30; Stop 07/22/18 at 20:29; Status UNV Allergies: Coded Allergies: magnesium citrate (Verified Allergy, Intermediate, 07/14/18) Patient states she had tingling sensation on her lips. Past Surgical History Past Surgical Hx: other (tonsillectomy, R ovary and fallopian tube removal, bunion removal, cataract removal/lens implant, [employer] shunt 2015) Social History Alcohol Use: none Smoking Status: Never smoker Drug Use: none Exam/Review of Systems Vital Signs Vitals Vital Signs Date Temp Pulse Resp B/P (MAP) Pulse Ox O2 O2 Flow FiO2 Time Delivery Rate 07/22/18 114 16:15 07/22/18 16 96 Nasal 2.0 14:18 Cannula 07/22/18 98.2 119/62 07:53 (81) Intake and Output 07/21/18 07/21/18 07/22/18 1515:00 23:00 07:00 IntakeIntake Total 600 ml 50 ml BalanceBalance 600 ml 50 ml Exam Constitutional: alert, oriented, other (obese) Psych: nl mood/affect Head: normocephalic, atraumatic Eyes: nl conjunctiva, EOMI, nl lids, nl sclera ENMT: nl external ears & nose, nl lips & teeth, nl nasal mucosa & septum Neck: supple; No jvd, No bruits Respiratory: clear to auscultation, normal air movement Cardiovascular: regular rate and rhythm, nl pulses, murmurs/extra sounds (soft systolic murmur) Gastrointestinal: soft, nl liver, spleen, non-tender Musculoskeletal: nl extremities to inspection Extremities: normal pulses Neurological: nl mental status, nl speech Skin: nl turgor; No rash or lesions Labs Result Diagram: 07/22/18 1358 07/22/18 0434 Results 24hrs Laboratory Tests Test 07/22/18 04:34 07/22/18 08:41 07/22/18 08:55 07/22/18 13:58 White Blood Count 11.3 H Red Blood Count 2.55 L Hemoglobin 7.9 L 8.9 L Hematocrit 25.0 L 27.8 L Mean Corpuscular 98.0 Volume Mean Corpuscular 31.0 Hemoglobin Mean Corpuscular 31.6 L Hemoglobin Concen t Red Cell 16.9 H Distribution Width Platelet Count 336 Mean Platelet 10.3 Volume Immature 1.800 H Granulocytes % Neutrophils % 73.8 Lymphocytes % 9.8 L Monocytes % 11.3 H Eosinophils % 2.9 Basophils % 0.4 Nucleated Red 0.0 Blood Cells % Immature 0.200 H Granulocytes # Neutrophils # 8.3 H Lymphocytes # 1.1 Monocytes # 1.3 H Eosinophils # 0.3 Basophils # 0.0 Nucleated Red 0.0 Blood Cells # Sodium Level 137 Potassium Level 3.7 Chloride Level 100 Carbon Dioxide 24 Level Anion Gap 13 Blood Urea 8 Nitrogen Creatinine 0.72 Est Glomerular Filtrat Rate mL/min Glucose Level 51 #L Calcium Level 8.9 Phosphorus Level 3.8 Magnesium Level 1.6 L Bedside Glucose 63 L Lab Scanned BLOOD TRANSFUSIO Report N Imaging Imaging EKG from 9:13 this am demonstrates multifocal atrial tachycardia with three unique p wave morphologies Medications Medications Current Medications Nalbuphine HCl (Nubain) 10 mg Q4H PRN IV .PRURITUS; Start 07/14/18 at 14:30 Ondansetron HCl (Zofran Inj) 4 mg Q6H PRN IV .NAUSEA/VOMITING Last administered on 07/22/18at 15:26; Admin Dose 4 MG; Start 07/14/18 at 14:30 Naloxone HCl (Narcan) 0.2 mg Q2M PRN IV .RESP RATE; Start 07/14/18 at 14:30 Miscellaneous Information (* Miscellaneous Pharmacy Order) FENTANYL: 20 MCG SPI... GIVEN NEURAXIAL XX ; Start 07/14/18 at 14:30 Hydromorphone HCl (Dilaudid) 0.5 mg Q2 PRN IV PAIN LEVEL 6-10 Last administered on 07/21/18at 18:52; Admin Dose 0.5 MG; Start 07/14/18 at 16:00 Diphenhydramine HCl (Benadryl) 25 mg Q6H PRN IV ITCHING; Start 07/14/18 at 16:00 Pantoprazole (Protonix Tab) 40 mg DAILY@06 PO Last administered on 07/22/18 06:09; Admin Dose 40 MG; Start 07/15/18 at 06:00 Enoxaparin Sodium (Lovenox) 30 mg DAILY@07 SC Last administered on 07/22/18 06:11; Admin Dose 30 MG; Start 07/15/18 at 12:00; Status Hold Lorazepam (Ativan) 0.5 mg HS MAY REPEAT X 1 PRN IV INSOMNIA; Start 07/14/18 at 16:00 Bupropion HCl (Wellbutrin Sr) 150 mg DAILY PO Last administered on 07/22/18 10:39; Admin Dose 150 MG; Start 07/15/18 at 09:00 Cholecalciferol (Vitamin D) 1,000 unit DAILY PO Last administered on 07/22/18 10:39; Admin Dose 1,000 UNIT; Start 07/15/18 at 09:00 Cyanocobalamin (Vitamin B12) 1,500 mcg DAILY PO Last administered on 07/21/18 09:12; Admin Dose 1,500 MCG; Start 07/15/18 at 09:00 Escitalopram Oxalate (Lexapro) 10 mg DAILY PO Last administered on 07/22/18 10:40; Admin Dose 10 MG; Start 07/14/18 at 22:00 Levothyroxine Sodium (Synthroid) 75 mcg BEFORE BREAKFAST PO Last administered on 07/22/18 06:10; Admin Dose 75 MCG; Start 07/15/18 at 07:00 Loratadine (Claritin) 10 mg DAILY PO Last administered on 07/22/18 10:40; Admin Dose 10 MG; Start 07/15/18 at 09:00 Losartan Potassium (Cozaar) 50 mg DAILY PO Last administered on 07/22/18 10:39; Admin Dose 50 MG; Start 07/15/18 at 09:00 Niacin (Niacin) 500 mg BID PO Last administered on 07/22/18 10:39; Admin Dose 500 MG; Start 07/14/18 at 21:00 Oxycodone/ Acetaminophen (Percocet (5/ 325)) 1 tab Q4H PRN PO PAIN Last administered on 07/19/18 10:28; Admin Dose 1 TAB; Start 07/15/18 at 07:30 Prednisone (Prednisone) 5 mg DAILY PO Last administered on 07/22/18 10:38; Admin Dose 5 MG; Start 07/15/18 at 09:00 Prednisone (Prednisone) 3 mg DAILY PO Last administered on 07/22/18 10:38; Admin Dose 3 MG; Start 07/15/18 at 09:00 Ferrous Sulfate (Ferrous Sulfate (Ec)) 325 mg DAILY PO Last administered on 07/18/18 09:10; Admin Dose 325 MG; Start 07/18/18 at 09:00; Status Hold Phenol (Cepastat Lozenge) 1 lozenge Q1H PRN MT cough Last administered on 07/18/18 19:53; Admin Dose 1 LOZENGE; Start 07/17/18 at 17:30 Acetaminophen (Tylenol Tab) 650 mg Q6H PRN PO MILD PAIN(1-3)OR ELEVATED TEMP Last administered on 07/18/18 06:32; Admin Dose 650 MG; Start 07/18/18 at 06:00 Potassium Chloride/Dextrose/ Sod Cl 1,000 ml @ 75 mls/hr [id number] IV Last administered on 07/22/18 10:52; Admin Dose 75 MLS/HR; Start 07/22/18 at 09:00 Sucralfate (Carafate Susp) 1 gm QID PO Last administered on 07/22/18 17:28; Admin Dose 1 GM; Start 07/22/18 at 13:00 Albuterol/ Ipratropium (Duoneb) 3 ml Q6HWA RESP THERAPY HHN Last administered on 07/22/18 14:18; Admin Dose 3 ML; Start 07/22/18 at 14:00 Budesonide (Pulmicort (Neb)) 0.5 mg BID RESP THERAPY HHN ; Start 07/22/18 at 20:00 Metoclopramide HCl (Reglan) 10 mg Q6H PRN IV nausea/vomiting; Start 07/22/18 at 17:30 Diagnostic Test (Pha) (Accu-Chek) 1 ea Q4 XX ; Start 07/22/18 at 21:00; Status UNV Total Parenteral Nutrition 1,000 ml @ 0 mls/hr Q0M IV ; Start 07/22/18 at 17:52; Status UNV Magnesium Sulfate 50 ml @ 25 mls/hr ONCE ONCE IVPB ; Start 07/22/18 at 18:30; Stop 07/22/18 at 20:29; Status UNV COSMO MALDONADO Jul 22, 2018 18:53
[2018-07-22] MEDS ORDERED: MAGNESIUM SULFATE 2 GM/50 ML 50 ML IVPB ONE (20:30)
[2018-07-22] MEDS: BUDESONIDE (NEB) 0.5MG/2ML AMP HHN SCH (20:57)
[2018-07-22] MEDS ORDERED: ACCU-CHEK XX SCH (21:00)
[2018-07-23] VITALS (11 sets, daily range): BP systolic 125–145; BP diastolic 59–77; PULSE 89–114; RESP 18–22
[2018-07-23] MEDS: LEVALBUTEROL (NEB) 0.63 MG/3 ML AMP HHN SCH ×2 (00:03→08:55)
[2018-07-23] MEDS: D5-NS + KCL 20 MEQ 1,000 ML IV SCH (03:06)
[2018-07-23] MEDS: PANTOPRAZOLE (EC) 40 MG TAB PO SCH (06:03)
[2018-07-23] MEDS: LEVOTHYROXINE 75 MCG TAB PO SCH (06:03)
[2018-07-23] MEDS: NIACIN 500 MG TAB PO SCH ×2 (08:30→22:24)
[2018-07-23] MEDS: LORATADINE 10 MG TAB PO SCH (08:30)
[2018-07-23] MEDS: BUPROPION (SR) 150 MG TAB PO SCH (08:31)
[2018-07-23] MEDS: CHOLECALCIFEROL 1,000 UNIT TAB PO SCH (08:31)
[2018-07-23] MEDS: predniSONE 5 MG TAB PO SCH (08:31)
[2018-07-23] MEDS: predniSONE 1 MG TAB PO SCH (08:32)
[2018-07-23] MEDS: ESCITALOPRAM 10 MG TAB PO SCH (08:33)
[2018-07-23] MEDS: LOSARTAN 50 MG TAB PO SCH (08:33)
[2018-07-23] MEDS: SUCRALFATE (100 MG/ML) 10ML CUP PO SCH ×4 (08:33→22:24)
[2018-07-23] MEDS: CYANOCOBALAMIN 500 MCG TAB PO SCH (08:33)
[2018-07-23] MEDS: BUDESONIDE (NEB) 0.5MG/2ML AMP HHN SCH (08:55)
--- NOTE | 2018-07-23 08:57 | PN ---
Date/Time of Note Date/Time of Note DATE: 07/23/18 TIME: 08:48 Assessment/Plan VTE Prophylaxis Risk score (from Nsg)>0 risk: 7 SCD applied (from Nsg): Yes Pharmacological prophylaxis: LMWH Lines/Catheters IV Catheter Type (from Nrsg): Peripheral IV Urinary Cath still in place: No Assessment/Plan Hospital Course 77YO Woman h/o stenotic sigmoid s/p sigmoid resection now POD 9. Pt reports she's better today, no NV. Possible nausea is due to distaste for clear liquid diet and taking meds all at once. Reports tolerating fulls this AM. Abdomen soft/NT/NM/ND/wound C/D/I. VS with intermittent tachy - will d/w IM need for breathing treatments. Will attempt diet again - trying not to do PICC and TPN. D/W IM, will consider GI consultation if can't tolerate PO, and start TPN this P M if not tolerating. Making every attempt to not start TPN. Dr. William back tomorrow. WBC 15, will get PA/Lateral Xray and UA. Result Diagram: 07/23/18 0505 07/23/18 0505 Results 24hrs Laboratory Tests Test 07/22/18 08:55 07/22/18 13:58 07/22/18 18:52 07/23/18 05:05 Lab Scanned BLOOD TRANSFUSIO Report N Hemoglobin 8.9 L 8.3 L Hematocrit 27.8 L 26.2 L Sodium Level 133 L 135 Potassium Level 3.8 3.8 Chloride Level 100 101 Carbon Dioxide 23 26 Level Anion Gap 10 8 Blood Urea 5 L 5 L Nitrogen Creatinine 0.54 0.59 Est Glomerular Filtrat Rate mL/min Glucose Level 117 # 110 Calcium Level 8.5 8.5 Phosphorus Level 2.9 2.7 Magnesium Level 1.5 L 2.0 Total Bilirubin 0.1 L 0.1 L Direct Bilirubin 0.00 0.00 Indirect 0.1 0.1 Bilirubin Aspartate Amino 14 L 12 L Transf (AST/SGOT) Alanine 19 16 Aminotransferase (ALT/SGPT) Alkaline 61 55 Phosphatase Total Protein 5.6 L 5.3 L Albumin 2.9 L 2.7 L Globulin 2.70 2.60 Albumin/Globulin 1.07 1.03 Ratio Prealbumin 7.6 L Triglycerides 90 Level White Blood Count 15.4 #H Red Blood Count 2.71 L Mean Corpuscular 96.7 Volume Mean Corpuscular 30.6 Hemoglobin Mean Corpuscular 31.7 L Hemoglobin Concen t Red Cell 16.8 H Distribution Width Platelet Count 385 Mean Platelet 10.0 Volume Immature 2.100 H Granulocytes % Neutrophils % 83.0 H Lymphocytes % 4.9 L Monocytes % 8.7 Eosinophils % 1.0 Basophils % 0.3 Nucleated Red 0.0 Blood Cells % Immature 0.330 H Granulocytes # Neutrophils # 12.8 H Lymphocytes # 0.8 Monocytes # 1.3 H Eosinophils # 0.2 Basophils # 0.0 Nucleated Red 0.0 Blood Cells # Subjective 24 Hr Interval Summary Constitutional: no complaints Respiratory: no complaints Cardiovascular: no complaints Gastrointestinal: no complaints Genitourinary: no complaints Exam/Review of Systems Exam Vitals Vital Signs Date Temp Pulse Resp B/P (MAP) Pulse Ox O2 O2 Flow FiO2 Time Delivery Rate 07/23/18 98 08:00 07/23/18 97.8 22 132/63 96 Room Air 07:21 (86) 07/23/18 21 00:03 07/22/18 2.0 14:18 Intake and Output 07/22/18 07/22/18 07/23/18 1515:00 23:00 07:00 IntakeIntake Total 620 ml 260 ml 1790 ml OutputOutput Total 1 ml BalanceBalance 620 ml 260 ml 1789 ml Constitutional: alert Respiratory: clear to auscultation Cardiovascular: regular rate and rhythm Gastrointestinal: soft (NT/NM/ND) Results Results 24hrs Laboratory Tests Test 07/22/18 08:55 07/22/18 13:58 07/22/18 18:52 07/23/18 05:05 Lab Scanned BLOOD TRANSFUSIO Report N Hemoglobin 8.9 L 8.3 L Hematocrit 27.8 L 26.2 L Sodium Level 133 L 135 Potassium Level 3.8 3.8 Chloride Level 100 101 Carbon Dioxide 23 26 Level Anion Gap 10 8 Blood Urea 5 L 5 L Nitrogen Creatinine 0.54 0.59 Est Glomerular Filtrat Rate mL/min Glucose Level 117 # 110 Calcium Level 8.5 8.5 Phosphorus Level 2.9 2.7 Magnesium Level 1.5 L 2.0 Total Bilirubin 0.1 L 0.1 L Direct Bilirubin 0.00 0.00 Indirect 0.1 0.1 Bilirubin Aspartate Amino 14 L 12 L Transf (AST/SGOT) Alanine 19 16 Aminotransferase (ALT/SGPT) Alkaline 61 55 Phosphatase Total Protein 5.6 L 5.3 L Albumin 2.9 L 2.7 L Globulin 2.70 2.60 Albumin/Globulin 1.07 1.03 Ratio Prealbumin 7.6 L Triglycerides 90 Level White Blood Count 15.4 #H Red Blood Count 2.71 L Mean Corpuscular 96.7 Volume Mean Corpuscular 30.6 Hemoglobin Mean Corpuscular 31.7 L Hemoglobin Concen t Red Cell 16.8 H Distribution Width Platelet Count 385 Mean Platelet 10.0 Volume Immature 2.100 H Granulocytes % Neutrophils % 83.0 H Lymphocytes % 4.9 L Monocytes % 8.7 Eosinophils % 1.0 Basophils % 0.3 Nucleated Red 0.0 Blood Cells % Immature 0.330 H Granulocytes # Neutrophils # 12.8 H Lymphocytes # 0.8 Monocytes # 1.3 H Eosinophils # 0.2 Basophils # 0.0 Nucleated Red 0.0 Blood Cells # Medications Medication Current Medications Nalbuphine HCl (Nubain) 10 mg Q4H PRN IV .PRURITUS; Start 07/14/18 at 14:30 Ondansetron HCl (Zofran Inj) 4 mg Q6H PRN IV .NAUSEA/VOMITING Last administered on 07/22/18at 15:26; Admin Dose 4 MG; Start 07/14/18 at 14:30 Naloxone HCl (Narcan) 0.2 mg Q2M PRN IV .RESP RATE; Start 07/14/18 at 14:30 Miscellaneous Information (* Miscellaneous Pharmacy Order) FENTANYL: 20 MCG SPI... GIVEN NEURAXIAL XX ; Start 07/14/18 at 14:30 Hydromorphone HCl (Dilaudid) 0.5 mg Q2 PRN IV PAIN LEVEL 6-10 Last administered on 07/21/18at 18:52; Admin Dose 0.5 MG; Start 07/14/18 at 16:00 Diphenhydramine HCl (Benadryl) 25 mg Q6H PRN IV ITCHING; Start 07/14/18 at 16:00 Pantoprazole (Protonix Tab) 40 mg DAILY@06 PO Last administered on 07/23/18at 06:03; Admin Dose 40 MG; Start 07/15/18 at 06:00 Enoxaparin Sodium (Lovenox) 30 mg DAILY@07 SC Last administered on 07/22/18 06:11; Admin Dose 30 MG; Start 07/15/18 at 12:00; Status Hold Lorazepam (Ativan) 0.5 mg HS MAY REPEAT X 1 PRN IV INSOMNIA; Start 07/14/18 at 16:00 Bupropion HCl (Wellbutrin Sr) 150 mg DAILY PO Last administered on 07/22/18 10:39; Admin Dose 150 MG; Start 07/15/18 at 09:00 Cholecalciferol (Vitamin D) 1,000 unit DAILY PO Last administered on 07/22/18 10:39; Admin Dose 1,000 UNIT; Start 07/15/18 at 09:00 Cyanocobalamin (Vitamin B12) 1,500 mcg DAILY PO Last administered on 07/21/18 09:12; Admin Dose 1,500 MCG; Start 07/15/18 at 09:00 Escitalopram Oxalate (Lexapro) 10 mg DAILY PO Last administered on 07/22/18 10:40; Admin Dose 10 MG; Start 07/14/18 at 22:00 Levothyroxine Sodium (Synthroid) 75 mcg BEFORE BREAKFAST PO Last administered on 07/23/18 06:03; Admin Dose 75 MCG; Start 07/15/18 at 07:00 Loratadine (Claritin) 10 mg DAILY PO Last administered on 07/22/18 10:40; Admin Dose 10 MG; Start 07/15/18 at 09:00 Losartan Potassium (Cozaar) 50 mg DAILY PO Last administered on 07/22/18 10:39; Admin Dose 50 MG; Start 07/15/18 at 09:00 Niacin (Niacin) 500 mg BID PO Last administered on 07/22/18 20:19; Admin Dose 500 MG; Start 07/14/18 at 21:00 Oxycodone/ Acetaminophen (Percocet (5/ 325)) 1 tab Q4H PRN PO PAIN Last administered on 07/19/18 10:28; Admin Dose 1 TAB; Start 07/15/18 at 07:30 Prednisone (Prednisone) 5 mg DAILY PO Last administered on 07/22/18 10:38; Admin Dose 5 MG; Start 07/15/18 at 09:00 Prednisone (Prednisone) 3 mg DAILY PO Last administered on 07/22/18 10:38; Admin Dose 3 MG; Start 07/15/18 at 09:00 Ferrous Sulfate (Ferrous Sulfate (Ec)) 325 mg DAILY PO Last administered on 07/18/18 09:10; Admin Dose 325 MG; Start 07/18/18 at 09:00; Status Hold Phenol (Cepastat Lozenge) 1 lozenge Q1H PRN MT cough Last administered on 07/18/18 19:53; Admin Dose 1 LOZENGE; Start 07/17/18 at 17:30 Acetaminophen (Tylenol Tab) 650 mg Q6H PRN PO MILD PAIN(1-3)OR ELEVATED TEMP Last administered on 07/18/18 06:32; Admin Dose 650 MG; Start 07/18/18 at 06:00 Potassium Chloride/Dextrose/ Sod Cl 1,000 ml @ 75 mls/hr [id number] IV Last administered on 07/23/18 03:06; Admin Dose 75 MLS/HR; Start 07/22/18 at 09:00 Sucralfate (Carafate Susp) 1 gm QID PO Last administered on 07/22/18 20:19; Admin Dose 1 GM; Start 07/22/18 at 13:00 Budesonide (Pulmicort (Neb)) 0.5 mg BID RESP THERAPY HHN Last administered on 07/22/18 20:57; Admin Dose 0.5 MG; Start 07/22/18 at 20:00 Metoclopramide HCl (Reglan) 10 mg Q6H PRN IV nausea/vomiting; Start 07/22/18 at 17:30 Diagnostic Test (Pha) (Accu-Chek) 1 ea Q4 XX ; Start 07/22/18 at 21:00; Status UNV Total Parenteral Nutrition 1,000 ml @ 0 mls/hr Q0M IV ; Start 07/22/18 at 17:52; Status UNV Levalbuterol (Xopenex Neb) 0.63 mg Q8H RESP THERAPY HHN Last administered on 07/23/18 00:03; Admin Dose 0.63 MG; Start 07/23/18 at 00:00 TAMMY FLORES M.D. Jul 23, 2018 08:57
--- NOTE | 2018-07-23 09:51 | CONS ---
Assessment/Plan Assessment/Plan Hospital Course (Demo Recall) 78 yo post bowel surgery who now has MAT (multifocal atrial tachycardia), likely secondary to hypovolemia due to inability to eat, hypomagnesemia and inhaled beta agonists. Impression: Multifocal atrial tachycardia Hypomagnesemia Hypertension, controlled Recommendations Will give a liter of fluids Surgeon note reviewed, patient may be started on TPN Replete magnesium po Change albuterol to Xopenex Consultation Date/Type/Reason Admit Date/Time Jul 14, 2018 at 10:14 Initial Consult Date 07/22/18 Type of Consult Cardiology Requesting Provider: TIM PORTILLO Date/Time of Note DATE: 07/23/18 TIME: 09:47 24 HR Interval Summary Free Text/Dictation Patient tired, just walked with physical therapy, discussed with PT and telemetry reviewed, HR up to 130 with walking. Telemetry still demonstrates MAT. Exam/Review of Systems Vital Signs Vitals Vital Signs Date Temp Pulse Resp B/P (MAP) Pulse Ox O2 O2 Flow FiO2 Time Delivery Rate 07/23/18 98 08:00 07/23/18 97.8 22 132/63 96 Room Air 07:21 (86) 07/23/18 21 00:03 07/22/18 2.0 14:18 Intake and Output 07/22/18 07/22/18 07/23/18 1515:00 23:00 07:00 IntakeIntake Total 620 ml 260 ml 1790 ml OutputOutput Total 1 ml BalanceBalance 620 ml 260 ml 1789 ml Exam Constitutional: alert, oriented, well developed Psych: nl mood/affect Head: normocephalic, atraumatic Eyes: nl conjunctiva, EOMI, nl lids, nl sclera ENMT: nl external ears & nose, nl lips & teeth, nl nasal mucosa & septum Neck: supple; No jvd, No bruits Respiratory: clear to auscultation, normal air movement Cardiovascular: nl pulses, irregular rhythm; No murmurs/extra sounds Gastrointestinal: soft, nl liver, spleen, tender Musculoskeletal: nl extremities to inspection Extremities: normal pulses Neurological: nl mental status, nl speech Skin: nl turgor; No rash or lesions Labs Result Diagram: 07/23/18 0505 07/23/18 0505 Results 24hrs Laboratory Tests Test 07/22/18 13:58 07/22/18 18:52 07/23/18 05:05 Hemoglobin 8.9 L 8.3 L Hematocrit 27.8 L 26.2 L Sodium Level 133 L 135 Potassium Level 3.8 3.8 Chloride Level 100 101 Carbon Dioxide Level 23 26 Anion Gap 10 8 Blood Urea Nitrogen 5 L 5 L Creatinine 0.54 0.59 Est Glomerular Filtrat Rate mL/min Glucose Level 117 # 110 Calcium Level 8.5 8.5 Phosphorus Level 2.9 2.7 Magnesium Level 1.5 L 2.0 Total Bilirubin 0.1 L 0.1 L Direct Bilirubin 0.00 0.00 Indirect Bilirubin 0.1 0.1 Aspartate Amino Transf (AST/SGOT) 14 L 12 L Alanine Aminotransferase (ALT/SGPT) 19 16 Alkaline Phosphatase 61 55 Total Protein 5.6 L 5.3 L Albumin 2.9 L 2.7 L Globulin 2.70 2.60 Albumin/Globulin Ratio 1.07 1.03 Prealbumin 7.6 L Triglycerides Level 90 White Blood Count 15.4 #H Red Blood Count 2.71 L Mean Corpuscular Volume 96.7 Mean Corpuscular Hemoglobin 30.6 Mean Corpuscular Hemoglobin Concent 31.7 L Red Cell Distribution Width 16.8 H Platelet Count 385 Mean Platelet Volume 10.0 Immature Granulocytes % 2.100 H Neutrophils % 83.0 H Lymphocytes % 4.9 L Monocytes % 8.7 Eosinophils % 1.0 Basophils % 0.3 Nucleated Red Blood Cells % 0.0 Immature Granulocytes # 0.330 H Neutrophils # 12.8 H Lymphocytes # 0.8 Monocytes # 1.3 H Eosinophils # 0.2 Basophils # 0.0 Nucleated Red Blood Cells # 0.0 Imaging Imaging EKG reviewed, NSR with sinus arrhythmia with one beat with an ectopic atrial focus Medications Medications Current Medications Nalbuphine HCl (Nubain) 10 mg Q4H PRN IV .PRURITUS; Start 07/14/18 at 14:30 Ondansetron HCl (Zofran Inj) 4 mg Q6H PRN IV .NAUSEA/VOMITING Last administered on 07/22/18at 15:26; Admin Dose 4 MG; Start 07/14/18 at 14:30 Naloxone HCl (Narcan) 0.2 mg Q2M PRN IV .RESP RATE; Start 07/14/18 at 14:30 Miscellaneous Information (* Miscellaneous Pharmacy Order) FENTANYL: 20 MCG SPI... GIVEN NEURAXIAL XX ; Start 07/14/18 at 14:30 Diphenhydramine HCl (Benadryl) 25 mg Q6H PRN IV ITCHING; Start 07/14/18 at 16:00 Pantoprazole (Protonix Tab) 40 mg DAILY@06 PO Last administered on 07/23/18 06 :03; Admin Dose 40 MG; Start 07/15/18 at 06:00 Enoxaparin Sodium (Lovenox) 30 mg DAILY@07 SC Last administered on 07/22/18 06:11; Admin Dose 30 MG; Start 07/15/18 at 12:00 Bupropion HCl (Wellbutrin Sr) 150 mg DAILY PO Last administered on 07/23/18 08:31; Admin Dose 150 MG; Start 07/15/18 at 09:00 Cholecalciferol (Vitamin D) 1,000 unit DAILY PO Last administered on 07/23/18 08:31; Admin Dose 1,000 UNIT; Start 07/15/18 at 09:00 Cyanocobalamin (Vitamin B12) 1,500 mcg DAILY PO Last administered on 07/23/18 08:33; Admin Dose 1,500 MCG; Start 07/15/18 at 09:00 Escitalopram Oxalate (Lexapro) 10 mg DAILY PO Last administered on 07/23/18 08:33; Admin Dose 10 MG; Start 07/14/18 at 22:00 Levothyroxine Sodium (Synthroid) 75 mcg BEFORE BREAKFAST PO Last administered on 07/23/18 06:03; Admin Dose 75 MCG; Start 07/15/18 at 07:00 Loratadine (Claritin) 10 mg DAILY PO Last administered on 07/23/18 08:30; Admin Dose 10 MG; Start 07/15/18 at 09:00 Losartan Potassium (Cozaar) 50 mg DAILY PO Last administered on 07/23/18 08:33; Admin Dose 50 MG; Start 07/15/18 at 09:00 Niacin (Niacin) 500 mg BID PO Last administered on 07/23/18 08:30; Admin Dose 500 MG; Start 07/14/18 at 21:00 Oxycodone/ Acetaminophen (Percocet (5/ 325)) 1 tab Q4H PRN PO PAIN Last administered on 07/19/18 10:28; Admin Dose 1 TAB; Start 07/15/18 at 07:30 Prednisone (Prednisone) 5 mg DAILY PO Last administered on 07/23/18 08:31; Admin Dose 5 MG; Start 07/15/18 at 09:00 Prednisone (Prednisone) 3 mg DAILY PO Last administered on 07/23/18 08:32; Admin Dose 3 MG; Start 07/15/18 at 09:00 Ferrous Sulfate (Ferrous Sulfate (Ec)) 325 mg DAILY PO Last administered on 07/18/18 09:10; Admin Dose 325 MG; Start 07/18/18 at 09:00; Status Hold Phenol (Cepastat Lozenge) 1 lozenge Q1H PRN MT cough Last administered on 07/18/18 19:53; Admin Dose 1 LOZENGE; Start 07/17/18 at 17:30 Acetaminophen (Tylenol Tab) 650 mg Q6H PRN PO MILD PAIN(1-3)OR ELEVATED TEMP Last administered on 07/18/18 06:32; Admin Dose 650 MG; Start 07/18/18 at 06:00 Potassium Chloride/Dextrose/ Sod Cl 1,000 ml @ 75 mls/hr [id number] IV Last administered on 07/23/18 03:06; Admin Dose 75 MLS/HR; Start 07/22/18 at 09:00 Sucralfate (Carafate Susp) 1 gm QID PO Last administered on 07/23/18 08:33; Admin Dose 1 GM; Start 07/22/18 at 13:00 Metoclopramide HCl (Reglan) 10 mg Q6H PRN IV nausea/vomiting; Start 07/22/18 at 17:30 Diagnostic Test (Pha) (Accu-Chek) 1 ea Q4 XX ; Start 07/22/18 at 21:00; Status UNV Total Parenteral Nutrition 1,000 ml @ 0 mls/hr Q0M IV ; Start 07/22/18 at 17:52; Status UNV COSMO MALDONADO Jul 23, 2018 09:51
[2018-07-23] MEDS ORDERED: POTASSIUM CHLORIDE 10 MEQ in SOD CHLORIDE 0.9% 1,000 ML IV SCH (11:00)
[2018-07-23] MEDS: OXYCODONE/ACETAMINOPHEN (5/325) TAB PO PRN (14:09)
--- NOTE | 2018-07-23 15:27 | PN ---
Date/Time of Note Date/Time of Note DATE: 07/23/18 TIME: 15:19 Objective Vitals Vital Signs Date Temp Pulse Resp B/P (MAP) Pulse Ox O2 O2 Flow FiO2 Time Delivery Rate 07/23/18 98 12:00 07/23/18 98.6 22 127/67 96 Room Air 11:41 (87) 07/23/18 21 00:03 07/22/18 2.0 14:18 Intake and Output 07/22/18 07/22/18 07/23/18 1515:00 23:00 07:00 IntakeIntake Total 620 ml 260 ml 1790 ml OutputOutput Total 1 ml BalanceBalance 620 ml 260 ml 1789 ml Results Result Diagram: 07/23/18 0505 07/23/18 0505 Medications Medications Current Medications Nalbuphine HCl (Nubain) 10 mg Q4H PRN IV .PRURITUS; Start 07/14/18 at 14:30 Ondansetron HCl (Zofran Inj) 4 mg Q6H PRN IV .NAUSEA/VOMITING Last administered on 07/22/18at 15:26; Admin Dose 4 MG; Start 07/14/18 at 14:30 Naloxone HCl (Narcan) 0.2 mg Q2M PRN IV .RESP RATE; Start 07/14/18 at 14:30 Miscellaneous Information (* Miscellaneous Pharmacy Order) FENTANYL: 20 MCG SPI... GIVEN NEURAXIAL XX ; Start 07/14/18 at 14:30 Diphenhydramine HCl (Benadryl) 25 mg Q6H PRN IV ITCHING; Start 07/14/18 at 16:00 Pantoprazole (Protonix Tab) 40 mg DAILY@06 PO Last administered on 07/23/18at 06:03; Admin Dose 40 MG; Start 07/15/18 at 06:00 Enoxaparin Sodium (Lovenox) 30 mg DAILY@07 SC Last administered on 07/22/18at 06:11; Admin Dose 30 MG; Start 07/15/18 at 12:00 Bupropion HCl (Wellbutrin Sr) 150 mg DAILY PO Last administered on 07/23/18 08:31; Admin Dose 150 MG; Start 07/15/18 at 09:00 Cholecalciferol (Vitamin D) 1,000 unit DAILY PO Last administered on 07/23/18 08:31; Admin Dose 1,000 UNIT; Start 07/15/18 at 09:00 Cyanocobalamin (Vitamin B12) 1,500 mcg DAILY PO Last administered on 07/23/18 08:33; Admin Dose 1,500 MCG; Start 07/15/18 at 09:00 Escitalopram Oxalate (Lexapro) 10 mg DAILY PO Last administered on 07/23/18 08:33; Admin Dose 10 MG; Start 07/14/18 at 22:00 Levothyroxine Sodium (Synthroid) 75 mcg BEFORE BREAKFAST PO Last administered on 07/23/18 06:03; Admin Dose 75 MCG; Start 07/15/18 at 07:00 Loratadine (Claritin) 10 mg DAILY PO Last administered on 07/23/18 08:30; Admin Dose 10 MG; Start 07/15/18 at 09:00 Losartan Potassium (Cozaar) 50 mg DAILY PO Last administered on 07/23/18 08:33; Admin Dose 50 MG; Start 07/15/18 at 09:00 Niacin (Niacin) 500 mg BID PO Last administered on 07/23/18 08:30; Admin Dose 500 MG; Start 07/14/18 at 21:00 Oxycodone/ Acetaminophen (Percocet (5/ 325)) 1 tab Q4H PRN PO PAIN Last administered on 07/23/18 14:09; Admin Dose 1 TAB; Start 07/15/18 at 07:30 Prednisone (Prednisone) 5 mg DAILY PO Last administered on 07/23/18 08:31; Admin Dose 5 MG; Start 07/15/18 at 09:00 Prednisone (Prednisone) 3 mg DAILY PO Last administered on 07/23/18 08:32; Admin Dose 3 MG; Start 07/15/18 at 09:00 Ferrous Sulfate (Ferrous Sulfate (Ec)) 325 mg DAILY PO Last administered on 07/18/18 09:10; Admin Dose 325 MG; Start 07/18/18 at 09:00; Status Hold Phenol (Cepastat Lozenge) 1 lozenge Q1H PRN MT cough Last administered on 07/18/18 19:53; Admin Dose 1 LOZENGE; Start 07/17/18 at 17:30 Acetaminophen (Tylenol Tab) 650 mg Q6H PRN PO MILD PAIN(1-3)OR ELEVATED TEMP Last administered on 07/18/18at 06:32; Admin Dose 650 MG; Start 07/18/18 at 06:00 Potassium Chloride/Dextrose/ Sod Cl 1,000 ml @ 75 mls/hr [id number] IV Last administered on 07/23/18at 03:06; Admin Dose 75 MLS/HR; Start 07/22/18 at 09:00 Sucralfate (Carafate Susp) 1 gm QID PO Last administered on 07/23/18at 12:23; Admin Dose 1 GM; Start 07/22/18 at 13:00 Metoclopramide HCl (Reglan) 10 mg Q6H PRN IV nausea/vomiting; Start 07/22/18 at 17:30 Diagnostic Test (Pha) (Accu-Chek) 1 ea Q4 XX ; Start 07/22/18 at 21:00; Status UNV Total Parenteral Nutrition 1,000 ml @ 0 mls/hr Q0M IV ; Start 07/22/18 at 17:52; Status UNV Potassium Chloride 10 meq/ Sodium Chloride 1,005 ml @ 100 mls/hr Q10H3M IV Last administered on 07/23/18at 11:39; Admin Dose 100 MLS/HR; Start 07/23/18 at 11:00; Stop 07/23/18 at 20:59 VTE Prophylaxis Risk score (from Ns)>0 risk: 7 SCD applied (from [facility] [place]): Yes Lines/Catheters IV Catheter Type: Moreno in Place: No Assessment/Plan Hospital Course Subjective Patient has no abdominal pain, questionable emesis last night, after discussion with general surgeon and family if patient does well today can avoid TPN however will have a low threshold. Objective Physical exam General: Patient is laying in bed and answers questions appropriately Mentation: Patient is alert and oriented 4, mild memory loss at times Head: Normocephalic atraumatic Eyes: EOMI, pupils reactive to light Neck: Supple, nontender, midline Respiratory: Clear to auscultation bilaterally Cardiovascular: regular rate, no obvious murmurs Gastrointestinal: Minimally-tender to palpation, bowel sounds heard. Neurological: Moves all extremities spontaneously Skin: No new skin lesions 77 yo F with PMH Rheumatoid arthritis on chronic steroids and methotrexate, HTN, hypothyroid, depression, diverticula disease, brain tumor presented to [facility] for elective sigmoid resection secondary to diverticula disease with stricture Assessment/Plan (Daily) 1. Nausea with vomiting, significantly improved -Patient feeling much better -Small bowel follow-through does not show obstruction - Encouraged patient to ambulate. -Titrate up diet as tolerated -IV fluids to supplement as needed -Carafate to help for hiatal hernia causing some of this nausea. 2. Iron deficiency anemia - Counseled about importance of taking iron supplements. Also encouraged to eat more foods rich in iron -Mild drop in hemoglobin earlier this week coincided with findings consistent with hemodilution, repeat blood draw subsequently show fluctuating levels of hemoglobin however the average remains consistent, will just monitor for now. -Patient had large bowel movements, observed by general surgeon, who per patient did not suspect any abnormality, however at this point due to recent bowel surgery, fecal occult is not very useful. as it will likely have microscopic pos itive results. -Likely okay to restart Lovenox at this time for DVT prophylaxis patient is not very ambulatory however will need to closely monitor. -Transfuse as needed Multifocal atrial tachycardia -Cardiology on board -Likely secondary to volume depletion and hypomagnesemia per cardiology, monitor closely on telemetry still. -Asymptomatic Leukocytosis -No clear sources of infection however will need to monitor closely -Chest x-ray does not show overt pneumonia, there is atelectasis, incentive spirometry encouraged -UA still pending -Blood cultures done 3. Rheumatoid arthritis- stable - continue on Prednisone 8mg daily. - continue methotrexate as usual when able to tolerate p.o. better - Tylenol PRN for joint discomfort 4. Acute sigmoid diverticulitis with stricture s/p lap sigmoid resection - doing well post operatively and tolerating current diet - General surgery to manage postoperative course - pain control 5. Bullous Pemphigoid - continue steroids at this time - resume Plaquenil upon discharge 6. HTN - stable - continue home medication 7. Depression- stable - continue on Wellbutrin and Lexapro when tolerating 8. Hypothyroidism - on levothyroxine 9. Allergic rhinitis - continue home Claritin dose when tolerating 10. h/o hydrocephalus s/p shunt and brain mass - stable 11. R hearing loss - h/o schwannoma 12. GERD with hiatal hernia - PPI -Add Carafate for nausea related to above 13. Disposition -Full liquid diet, advance as tolerated, monitor very closely for GI bleed or other sources of bleed and arrhythmia. -After extensive discussion with multiple consultants including family and general surgeon, if patient has another episode of nausea and vomiting and poor oral intake will start TPN, PICC line will need to be ordered, dietitian recomm endation is already done. TIM PORTILLO Jul 23, 2018 15:27
[2018-07-24] VITALS (11 sets, daily range): BP systolic 104–152; BP diastolic 59–86; PULSE 87–151; RESP 16–22
[2018-07-24] MEDS: LEVOTHYROXINE 75 MCG TAB PO SCH (06:22)
[2018-07-24] MEDS: PANTOPRAZOLE (EC) 40 MG TAB PO SCH (06:22)
[2018-07-24] MEDS: ENOXAPARIN 30 MG/0.3 ML SYG SC SCH (06:40)
[2018-07-24] MEDS: predniSONE 5 MG TAB PO SCH (08:16)
[2018-07-24] MEDS: SUCRALFATE (100 MG/ML) 10ML CUP PO SCH ×4 (08:16→20:44)
[2018-07-24] MEDS: LORATADINE 10 MG TAB PO SCH (08:16)
[2018-07-24] MEDS: CHOLECALCIFEROL 1,000 UNIT TAB PO SCH (08:18)
[2018-07-24] MEDS: predniSONE 1 MG TAB PO SCH (08:18)
[2018-07-24] MEDS: NIACIN 500 MG TAB PO SCH ×2 (08:18→20:44)
[2018-07-24] MEDS: CYANOCOBALAMIN 500 MCG TAB PO SCH (08:19)
[2018-07-24] MEDS: ESCITALOPRAM 10 MG TAB PO SCH (08:19)
[2018-07-24] MEDS: BUPROPION (SR) 150 MG TAB PO SCH (08:19)
[2018-07-24] MEDS: LOSARTAN 50 MG TAB PO SCH (08:20)
[2018-07-24] MEDS ORDERED: IOHEXOL 14.3 MG(I)/ML (ADULT) BTL PO ONE (09:00)
--- NOTE | 2018-07-24 11:13 | PN ---
Date/Time of Note Date/Time of Note DATE: 07/24/18 TIME: 11:10 Objective Vitals Vital Signs Date Temp Pulse Resp B/P (MAP) Pulse Ox O2 O2 Flow FiO2 Time Delivery Rate 07/24/18 112 08:10 07/24/18 97.6 22 104/59 96 Room Air 07:27 (74) 07/23/18 21 00:03 07/22/18 2.0 14:18 Intake and Output 07/23/18 07/23/18 07/24/18 1515:00 23:00 07:00 IntakeIntake Total 680 ml 300 ml BalanceBalance 680 ml 300 ml Results Result Diagram: 07/24/18 0510 07/24/18 0510 Medications Medications Current Medications Nalbuphine HCl (Nubain) 10 mg Q4H PRN IV .PRURITUS; Start 07/14/18 at 14:30 Ondansetron HCl (Zofran Inj) 4 mg Q6H PRN IV .NAUSEA/VOMITING Last administered on 07/22/18at 15:26; Admin Dose 4 MG; Start 07/14/18 at 14:30 Naloxone HCl (Narcan) 0.2 mg Q2M PRN IV .RESP RATE; Start 07/14/18 at 14:30 Miscellaneous Information (* Miscellaneous Pharmacy Order) FENTANYL: 20 MCG SPI... GIVEN NEURAXIAL XX ; Start 07/14/18 at 14:30 Diphenhydramine HCl (Benadryl) 25 mg Q6H PRN IV ITCHING; Start 07/14/18 at 16:00 Pantoprazole (Protonix Tab) 40 mg DAILY@06 PO Last administered on 07/24/18at 06:22; Admin Dose 40 MG; Start 07/15/18 at 06:00 Enoxaparin Sodium (Lovenox) 30 mg DAILY@07 SC Last administered on 07/24/18at 06:40; Admin Dose 30 MG; Start 07/15/18 at 12:00 Bupropion HCl (Wellbutrin Sr) 150 mg DAILY PO Last administered on 07/24/18at 08:19; Admin Dose 150 MG; Start 07/15/18 at 09:00 Cholecalciferol (Vitamin D) 1,000 unit DAILY PO Last administered on 07/24/18at 08:18; Admin Dose 1,000 UNIT; Start 07/15/18 at 09:00 Cyanocobalamin (Vitamin B12) 1,500 mcg DAILY PO Last administered on 07/24/18 08:19; Admin Dose 1,500 MCG; Start 07/15/18 at 09:00 Escitalopram Oxalate (Lexapro) 10 mg DAILY PO Last administered on 07/24/18 08:19; Admin Dose 10 MG; Start 07/14/18 at 22:00 Levothyroxine Sodium (Synthroid) 75 mcg BEFORE BREAKFAST PO Last administered on 07/24/18 06:22; Admin Dose 75 MCG; Start 07/15/18 at 07:00 Loratadine (Claritin) 10 mg DAILY PO Last administered on 07/24/18 08:16; Admin Dose 10 MG; Start 07/15/18 at 09:00 Losartan Potassium (Cozaar) 50 mg DAILY PO Last administered on 07/24/18 08:20; Admin Dose 50 MG; Start 07/15/18 at 09:00 Niacin (Niacin) 500 mg BID PO Last administered on 07/24/18 08:18; Admin Dose 500 MG; Start 07/14/18 at 21:00 Oxycodone/ Acetaminophen (Percocet (5/ 325)) 1 tab Q4H PRN PO PAIN Last administered on 07/23/18 14:09; Admin Dose 1 TAB; Start 07/15/18 at 07:30 Prednisone (Prednisone) 5 mg DAILY PO Last administered on 07/24/18 08:16; Admin Dose 5 MG; Start 07/15/18 at 09:00 Prednisone (Prednisone) 3 mg DAILY PO Last administered on 07/24/18 08:18; Admin Dose 3 MG; Start 07/15/18 at 09:00 Ferrous Sulfate (Ferrous Sulfate (Ec)) 325 mg DAILY PO Last administered on 07/18/18 09:10; Admin Dose 325 MG; Start 07/18/18 at 09:00; Status Hold Phenol (Cepastat Lozenge) 1 lozenge Q1H PRN MT cough Last administered on 07/18/18 19:53; Admin Dose 1 LOZENGE; Start 07/17/18 at 17:30 Acetaminophen (Tylenol Tab) 650 mg Q6H PRN PO MILD PAIN(1-3)OR ELEVATED TEMP Last administered on 3/22/19at 06:32; Admin Dose 650 MG; Start 07/18/18 at 06:00 Sucralfate (Carafate Susp) 1 gm QID PO Last administered on 07/24/18at 08:16; Admin Dose 1 GM; Start 07/22/18 at 13:00 Metoclopramide HCl (Reglan) 10 mg Q6H PRN IV nausea/vomiting; Start 07/22/18 at 17:30 Diagnostic Test (Pha) (Accu-Chek) 1 ea Q4 XX ; Start 07/22/18 at 21:00; Status UNV Total Parenteral Nutrition 1,000 ml @ 0 mls/hr Q0M IV ; Start 07/22/18 at 17:52; Status UNV Piperacillin Sod/ Tazobactam Sod 100 ml @ 200 mls/hr Q6 IVPB ; Start 07/24/18 at 12:00 VTE Prophylaxis Risk score (from [facility] [place])>0 risk: 3 SCD applied (from [facility] [place]): Yes Lines/Catheters IV Catheter Type: Moreno in Place: No Assessment/Plan Hospital Course Subjective Patient has no abdominal pain, able to keep down eggs and Malay toast today, no GI upset Objective Physical exam General: Patient is laying in bed and answers questions appropriately Mentation: Patient is alert and oriented 4, mild memory loss at times Head: Normocephalic atraumatic Eyes: EOMI, pupils reactive to light Neck: Supple, nontender, midline Respiratory: Clear to auscultation bilaterally Cardiovascular: regular rate, no obvious murmurs Gastrointestinal: Nontender to palpation, bowel sounds heard. Neurological: Moves all extremities spontaneously Skin: No new skin lesions 77 yo F with PMH Rheumatoid arthritis on chronic steroids and methotrexate, HTN, hypothyroid, depression, diverticula disease, brain tumor presented to [facility] for elective sigmoid resection secondary to diverticula disease with stricture Assessment/Plan (Daily) 1. Nausea with vomiting, resolved -Patient feeling much better -Small bowel follow-through does not show obstruction - Encouraged patient to ambulate. -Titrate up diet as tolerated -IV fluids to supplement as needed -Carafate to help for hiatal hernia causing some of this nausea. 2. Iron deficiency anemia - Counseled about importance of taking iron supplements. Also encouraged to eat more foods rich in iron -Mild drop in hemoglobin earlier this week coincided with findings consistent with hemodilution, repeat blood draw subsequently show fluctuating levels of hemoglobin however the average remains consistent, will just monitor for now. -Stable, however will keep a close eye. Multifocal atrial tachycardia -Cardiology on board -Likely secondary to volume depletion and hypomagnesemia per cardiology, monitor closely on telemetry still. -Asymptomatic Leukocytosis -No clear sources of infection however will need to monitor closely, suspect UTI given burning sensation with urination as well as on prednisone for rheumatoid arthritis. -Chest x-ray does not show overt pneumonia, there is atelectasis, incentive spirometry encouraged -UA still pending, will get UA before starting antibiotic -Blood cultures done -Due to continuing elevation of leukocytosis and on prednisone and being in the hospital for quite some time, will start broad-spectrum antibiotic, infectious disease consulted Rheumatoid arthritis- stable - continue on Prednisone 8mg daily. - continue methotrexate as usual when able to tolerate p.o. better - Tylenol PRN for joint discomfort Acute sigmoid diverticulitis with stricture s/p lap sigmoid resection - doing well post operatively and tolerating current diet - General surgery to manage postoperative course - pain control Bullous Pemphigoid - continue steroids at this time - resume Plaquenil upon discharge HTN - stable - continue home medication Depression- stable - continue on Wellbutrin and Lexapro when tolerating Hypothyroidism - on levothyroxine Allergic rhinitis - continue home Claritin dose when tolerating h/o hydrocephalus s/p shunt and brain mass - stable R hearing loss - h/o schwannoma GERD with hiatal hernia - PPI -Add Carafate for nausea related to above, resolving 13. Disposition -Patient improving significantly with diet, continue to increase -Infectious disease consultation pending for leukocytosis, possible UTI, antibiotic started. TIM PORTILLO Jul 24, 2018 11:13
--- NOTE | 2018-07-24 11:42 | CONS ---
DATE OF ADMISSION: 07/14/2018 DATE OF CONSULTATION: 07/24/2018 TYPE OF CONSULTATION: Infectious Disease. REASON FOR CONSULTATION: Antibiotic management. HISTORY OF PRESENT ILLNESS: 1. A 78-year-old female who was admitted on 07/14/2018. She has a history of rheumatoid arthritis, on chronic steroids and methotrexate. 2. Hypertension. 3. Hypothyroidism. 4. Depression. The patient was admitted. 5. The patient has diverticular disease [facility] re section secondary to diverticular disease with strictures She is status post laparoscopic sigmoid re section on the day of admission by Dr. William. The patient is on Solu-Medrol 50 mg q.8h., methotre xate and Plaquenil were held, given recent surgical intervention. She also has a history of bullous pemphigoid, especially on her abdomen. 6. Other problems include hypertension, depression, hypothyroidism, allergic rhinitis, history of hy drocephalus status post shunt, right hearing loss, history of schwannoma. She has GERD. She also aragon s a history of ischemic colitis. PAST SURGICAL HISTORY: Includes status post tonsillectomy, status post right ovary and fallopian tub e removal, bunion removal, cataract removal and lens implant MEAL COOKER shunt is noted in 2016. She had a la paroscopic assisted rectosigmoid resection with primary stapled anastomosis and proctosigmoidoscopy o mental flap to pelvis. FAMILY HISTORY: Noncontributory. SOCIAL HISTORY: She does not smoke, drink or abuse drugs. ALLERGIES: PENICILLIN, SULFA AND FOOD. SHE IS ALLERGIC TO MAGNESIUM CITRATE. SHE GETS TINGLING ON HER LIPS. LABORATORY DATA: White count on the was 18.3, hemoglobin and hematocrit of 8.4 and 26.5, platel et count 263,000. BUN and creatinine 6/0.53, glucose of 178. Urine cultures no growth. The patient is currently on Zosyn. Chest x-ray: Shows a large hiatal hernia with adjacent left basilar opacity representing atelectasis , left MEAL COOKER shunt tubing incompletely imaged air-filled distended loops of bowel. The patient is compl aining of nausea and vomiting. Her intake was limited until she is able to pass gas and stool. The patient was noted to have multifocal atrial tachycardia with hypomagnesemia and hypertension. PAST MEDICAL HISTORY: As noted. PHYSICAL EXAMINATION: GENERAL: The patient has no complaints. She is alert, responsive, in no acute distress. VITAL SIGNS: Stable. She is afebrile. SKIN: Without generalized rash. HEENT: Within normal limits. NECK: Supple. LYMPH NODES: None palpable. CHEST: Decreased breath sounds at the bases. HEART: Without murmur or gallop. ABDOMEN: Soft, somewhat tender without organomegaly, splenomegaly or masses. EXTREMITIES: Without cyanosis, clubbing, or edema. RECTAL AND GENITAL: Deferred. NEUROLOGIC: No focal neurological abnormality. IMPRESSION AND PLAN: The patient now has white count of 15.4, H and H of 8.3 and 26.3, platelet coun t 385,000. BUN and creatinine 5/0.59. She is currently on Zosyn. She is also on daily prednisone b ut not high dose. Blood cultures were ordered on the . We probably should get a repeat urinalys is, although urine from the was negative for leukocyte esterase and nitrite. I think we will ob serve her on current therapy. I will dictate my findings to the hospitalist and to Dr. William. Dictated By: LON BELLE MD, JD/NTS Conf#: [id number] DID#: [id number] CC: TIM PORTILLO MD; LUCI WILLIAM MD;*[facility]*
--- NOTE | 2018-07-24 13:19 | PN ---
Date/Time of Note Date/Time of Note DATE: 07/24/18 TIME: 13:14 Assessment/Plan Lines/Catheters IV Catheter Type (from Nrsg): Moreno in Place (from Nrs): No Assessment/Plan Chief Complaint/Hosp Course POD #1 s/p diverticular resection on this 77 y/o White female w/ severe RA. Pt will return to her usual oral prednisone dose of 8 mg a day, after receiving perioperative IV steroids POD #2 Doing well, passing gas POD #10 Elevated wbx ( to 20,000 w/o chills or fever). Poor po till today. Assessment/Plan Will get CT of abd/ pelvis to evaluate the pelvis . ID consult appreciated to R/O lung or bladder issues Subjective 24 Hr Interval Summary Pt is not sure if she has dysuria, or cough) memory is not reliable. She has to lerated her breakfast and a substantial amout of her lunch todat, w/o difficulty. The Ct is pending for this afternoon. Denies cills, and fever Constitutional: no complaints, poor po Feeding: advancing diet Pain Control: well controlled Exam/Review of Systems Vital Signs Vitals Vital Signs Date Temp Pulse Resp B/P (MAP) Pulse Ox O2 O2 Flow FiO2 Time Delivery Rate 07/24/18 107 12:05 07/24/18 97.6 22 104/59 96 Room Air 07:27 (74) 07/23/18 21 00:03 07/22/18 2.0 14:18 Intake and Output 07/23/18 07/23/18 07/24/18 1414:59 22:59 06:59 IntakeIntake Total 680 ml 300 ml BalanceBalance 680 ml 300 ml Exam Constitutional: oriented (x 3) Gastrointestinal: soft, non-tender, bowel sounds Results Result Diagram: 07/24/18 0510 07/24/18 0510 LUCI DIAZ MD Jul 24, 2018 13:19
[2018-07-24] MEDS: PIPER-TAZO 3.375 GM IV (PMX) 100 ML IVPB SCH ×2 (14:32→17:53)
[2018-07-24] MEDS ORDERED: IOHEXOL 300MG/ML 150 ML BTL ONE (15:15)
[2018-07-24] MEDS ORDERED: SOD CHLORIDE 0.9% 100 ML ONE (15:15)
--- NOTE | 2018-07-24 17:21 | CONS ---
Assessment/Plan Assessment/Plan Hospital Course (Demo Recall) Coverage Dr. Sanchez Multifocal atrial tachycardia Status post abdominal surgery Hypertension -Patient with episodes of atrial tachycardia noted on telemetry. Undergoing further surgery workup -Maintain potassium above 4.0 and magnesium above 2.0 -If no contraindication, would start beta-melchor Consultation Date/Type/Reason Admit Date/Time Jul 14, 2018 at 10:14 Initial Consult Date 07/22/18 Type of Consult Cardiology Requesting Provider: TIM PORTILLO Date/Time of Note DATE: 07/24/18 TIME: 17:17 24 HR Interval Summary Free Text/Dictation Planes of fatigue, nausea. Denies shortness of breath, palpitations Exam/Review of Systems Vital Signs Vitals Vital Signs Date Temp Pulse Resp B/P (MAP) Pulse Ox O2 O2 Flow FiO2 Time Delivery Rate 07/24/18 90 16:04 07/24/18 98.0 22 152/67 98 Room Air 15:59 (95) 07/23/18 21 00:03 07/22/18 2.0 14:18 Intake and Output 07/23/18 07/23/18 07/24/18 1515:00 23:00 07:00 IntakeIntake Total 680 ml 300 ml BalanceBalance 680 ml 300 ml Exam Constitutional: alert, oriented Head: normocephalic Respiratory: other (Coarse breath sounds bilaterally, no wheezing) Cardiovascular: regular rate and rhythm (S1-S2 heard) Gastrointestinal: soft, bowel sounds Extremities: edema (Trace) Labs Result Diagram: 07/24/18 0510 07/24/18 0510 Results 24hrs Laboratory Tests Test 07/24/18 05:10 07/24/18 13:50 White Blood Count 20.3 #H Red Blood Count 2.71 L Hemoglobin 8.3 L Hematocrit 25.9 L Mean Corpuscular Volume 95.6 Mean Corpuscular Hemoglobin 30.6 Mean Corpuscular Hemoglobin Concent 32.0 Red Cell Distribution Width 17.0 H Platelet Count 411 Mean Platelet Volume 10.3 Immature Granulocytes % 2.500 H Neutrophils % 83.3 H Lymphocytes % 4.7 L Monocytes % 8.2 Eosinophils % 1.1 Basophils % 0.2 Nucleated Red Blood Cells % 0.0 Immature Granulocytes # 0.500 H Neutrophils # 16.9 H Lymphocytes # 1.0 Monocytes # 1.7 H Eosinophils # 0.2 Basophils # 0.0 Nucleated Red Blood Cells # 0.0 Sodium Level 134 L Potassium Level 3.7 Chloride Level 99 Carbon Dioxide Level 23 Anion Gap 12 Blood Urea Nitrogen 8 Creatinine 0.66 Est Glomerular Filtrat Rate mL/min Glucose Level 70 # Calcium Level 8.4 Phosphorus Level 2.2 L Magnesium Level 1.9 Urine Color YI Urine Clarity CLOUDY A Urine pH 5.0 Urine Specific [place] 1.026 Urine Ketones TRACE A Urine Nitrite NEGATIVE Urine Bilirubin NEGATIVE Urine Urobilinogen NEGATIVE Urine Leukocyte Esterase 3+ H Urine Microscopic RBC 61 H Urine Microscopic WBC > 182 H Urine Calcium Oxalate Crystals FEW A Urine Bacteria FEW A Urine Mucus MODERATE Urine Hemoglobin 2+ H Urine Glucose NEGATIVE Urine Total Protein 1+ H Medications Medications Current Medications Nalbuphine HCl (Nubain) 10 mg Q4H PRN IV .PRURITUS; Start 07/14/18 at 14:30 Ondansetron HCl (Zofran Inj) 4 mg Q6H PRN IV .NAUSEA/VOMITING Last administered on 07/22/18at 15:26; Admin Dose 4 MG; Start 07/14/18 at 14:30 Naloxone HCl (Narcan) 0.2 mg Q2M PRN IV .RESP RATE; Start 07/14/18 at 14:30 Miscellaneous Information (* Miscellaneous Pharmacy Order) FENTANYL: 20 MCG SPI... GIVEN NEURAXIAL XX ; Start 07/14/18 at 14:30 Diphenhydramine HCl (Benadryl) 25 mg Q6H PRN IV ITCHING; Start 07/14/18 at 16:00 Pantoprazole (Protonix Tab) 40 mg DAILY@06 PO Last administered on 07/24/18at 06:22; Admin Dose 40 MG; Start 07/15/18 at 06:00 Enoxaparin Sodium (Lovenox) 30 mg DAILY@07 SC Last administered on 07/24/18at 06:40; Admin Dose 30 MG; Start 07/15/18 at 12:00 Bupropion HCl (Wellbutrin Sr) 150 mg DAILY PO Last administered on 07/24/18 08:19; Admin Dose 150 MG; Start 07/15/18 at 09:00 Cholecalciferol (Vitamin D) 1,000 unit DAILY PO Last administered on 07/24/18 08:18; Admin Dose 1,000 UNIT; Start 07/15/18 at 09:00 Cyanocobalamin (Vitamin B12) 1,500 mcg DAILY PO Last administered on 07/24/18 08:19; Admin Dose 1,500 MCG; Start 07/15/18 at 09:00 Escitalopram Oxalate (Lexapro) 10 mg DAILY PO Last administered on 07/24/18 08:19; Admin Dose 10 MG; Start 07/14/18 at 22:00 Levothyroxine Sodium (Synthroid) 75 mcg BEFORE BREAKFAST PO Last administered on 07/24/18 06:22; Admin Dose 75 MCG; Start 07/15/18 at 07:00 Loratadine (Claritin) 10 mg DAILY PO Last administered on 07/24/18 08:16; Admin Dose 10 MG; Start 07/15/18 at 09:00 Losartan Potassium (Cozaar) 50 mg DAILY PO Last administered on 07/24/18 08:20; Admin Dose 50 MG; Start 07/15/18 at 09:00 Niacin (Niacin) 500 mg BID PO Last administered on 07/24/18 08:18; Admin Dose 500 MG; Start 07/14/18 at 21:00 Oxycodone/ Acetaminophen (Percocet (5/ 325)) 1 tab Q4H PRN PO PAIN Last administered on 07/23/18 14:09; Admin Dose 1 TAB; Start 07/15/18 at 07:30 Prednisone (Prednisone) 5 mg DAILY PO Last administered on 07/24/18 08:16; Admin Dose 5 MG; Start 07/15/18 at 09:00 Prednisone (Prednisone) 3 mg DAILY PO Last administered on 07/24/18 08:18; Admin Dose 3 MG; Start 07/15/18 at 09:00 Ferrous Sulfate (Ferrous Sulfate (Ec)) 325 mg DAILY PO Last administered on 07/18/18 09:10; Admin Dose 325 MG; Start 07/18/18 at 09:00; Status Hold Phenol (Cepastat Lozenge) 1 lozenge Q1H PRN MT cough Last administered on 07/18/18 19:53; Admin Dose 1 LOZENGE; Start 07/17/18 at 17:30 Acetaminophen (Tylenol Tab) 650 mg Q6H PRN PO MILD PAIN(1-3)OR ELEVATED TEMP Last administered on 3/22/19at 06:32; Admin Dose 650 MG; Start 07/18/18 at 06:00 Sucralfate (Carafate Susp) 1 gm QID PO Last administered on 07/24/18at 12:26; Admin Dose 1 GM; Start 07/22/18 at 13:00 Metoclopramide HCl (Reglan) 10 mg Q6H PRN IV nausea/vomiting; Start 07/22/18 at 17:30 Diagnostic Test (Pha) (Accu-Chek) 1 ea Q4 XX ; Start 07/22/18 at 21:00; Status UNV Total Parenteral Nutrition 1,000 ml @ 0 mls/hr Q0M IV ; Start 07/22/18 at 17:52; Status UNV Piperacillin Sod/ Tazobactam Sod 100 ml @ 200 mls/hr Q6 IVPB Last administered on 07/24/18at 14:32; Admin Dose 200 MLS/HR; Start 07/24/18 at 12:00 Davy Donnelly DO Jul 24, 2018 17:21
[2018-07-24] MEDS ORDERED: POTASSIUM CHLORIDE (SR) 20 MEQ TAB PO ONE (17:30)
[2018-07-24] MEDS ORDERED: MAGNESIUM SULFATE 2 GM/50 ML 50 ML IVPB ONE (18:30)
[2018-07-24] MEDS: METOPROLOL 25 MG TAB PO SCH (20:45)
[2018-07-24] MEDS ORDERED: MAGNESIUM HYDROXIDE 30ML CUP PO PRN (22:30)
[2018-07-25] VITALS (9 sets, daily range): BP systolic 108–166; BP diastolic 57–79; PULSE 72–86; RESP 18
[2018-07-25] MEDS: OXYCODONE/ACETAMINOPHEN (5/325) TAB PO PRN ×2 (00:43→20:30)
[2018-07-25] MEDS: ONDANSETRON 4 MG INJ IV PRN (01:15)
--- NOTE | 2018-07-25 07:17 | PN ---
Date/Time of Note Date/Time of Note DATE: 07/25/18 TIME: 07:13 Assessment/Plan Lines/Catheters IV Catheter Type (from Nrs): Peripheral IV Moreno in Place (from Nrs): No Assessment/Plan Chief Complaint/Hosp Course POD #1 s/p diverticular resection on this 77 y/o White female w/ severe RA. Pt will return to her usual oral prednisone dose of 8 mg a day, after receiving perioperative IV steroids POD #2 Doing well, passing gas POD #10 Elevated wbx ( to 20,000 w/o chills or fever). Poor po till today. POD #11 Falling wbc on Zosyn, awaiting sensitivity. PO is improved Assessment/Plan Continue w/ soft diet. Try to increase ambulation Telemetry per medicine, and ANTB per dr Head Subjective 24 Hr Interval Summary Pt had an emesis overnight ( likely due to CT w/ oral contrast), and passed stool x 2. Lower WBC. Still w/ poor memory Family at bedside. UTI SX's starting to benjamín Constitutional: improved, BM, flatus Pain Control: mild Exam/Review of Systems Vital Signs Vitals Vital Signs Date Temp Pulse Resp B/P (MAP) Pulse Ox O2 O2 Flow FiO2 Time Delivery Rate 07/25/18 98.5 74 18 125/73 97 04:00 (90) 07/24/18 Room Air 15:59 07/23/18 21 00:03 07/22/18 2.0 14:18 Intake and Output 07/24/18 07/24/18 07/25/18 1414:59 22:59 06:59 IntakeIntake Total 1030 ml BalanceBalance 1030 ml Exam Constitutional: oriented (x3) Psych: no complaints Gastrointestinal: soft, non-tender, surgical scars Results Result Diagram: 07/25/18 0510 07/25/18 0510 LUCI DIAZ MD Jul 25, 2018 07:17
[2018-07-25] MEDS: PANTOPRAZOLE (EC) 40 MG TAB PO SCH (07:44)
[2018-07-25] MEDS: PIPER-TAZO 3.375 GM IV (PMX) 100 ML IVPB SCH ×4 (07:44→17:34)
[2018-07-25] MEDS: LEVOTHYROXINE 75 MCG TAB PO SCH (07:44)
[2018-07-25] MEDS: ENOXAPARIN 30 MG/0.3 ML SYG SC SCH (07:50)
[2018-07-25] MEDS: NIACIN 500 MG TAB PO SCH ×2 (08:20→20:30)
[2018-07-25] MEDS: CYANOCOBALAMIN 500 MCG TAB PO SCH (08:21)
[2018-07-25] MEDS: SUCRALFATE (100 MG/ML) 10ML CUP PO SCH ×4 (08:21→20:31)
[2018-07-25] MEDS: CHOLECALCIFEROL 1,000 UNIT TAB PO SCH (08:21)
[2018-07-25] MEDS: predniSONE 1 MG TAB PO SCH (08:21)
[2018-07-25] MEDS: predniSONE 5 MG TAB PO SCH (08:21)
[2018-07-25] MEDS: METOPROLOL 25 MG TAB PO SCH ×2 (08:22→20:31)
[2018-07-25] MEDS: BUPROPION (SR) 150 MG TAB PO SCH (08:22)
[2018-07-25] MEDS: LOSARTAN 50 MG TAB PO SCH (08:22)
[2018-07-25] MEDS: ESCITALOPRAM 10 MG TAB PO SCH (08:22)
[2018-07-25] MEDS: LORATADINE 10 MG TAB PO SCH (08:22)
[2018-07-25] MEDS ORDERED: POTASSIUM CHLORIDE (SR) 20 MEQ TAB PO STA (11:22)
--- NOTE | 2018-07-25 11:24 | CONS ---
Assessment/Plan Assessment/Plan Hospital Course (Demo Recall) Coverage Dr. Sanchez Multifocal atrial tachycardia Status post abdominal surgery Hypertension -Patient with history of multifocal atrial tachycardia. On review of telemetry, this is less often and improved after magnesium and potassium supplementation and initiation of beta-melchor -Maintain potassium above 4.0 and magnesium above 2.0 -Continue beta-melchor as tolerated Consultation Date/Type/Reason Admit Date/Time Jul 14, 2018 at 10:14 Initial Consult Date 07/22/18 Type of Consult Cardiology Requesting Provider: TIM PORTILLO Date/Time of Note DATE: 07/25/18 TIME: 11:23 24 HR Interval Summary Free Text/Dictation Feeling better today. Less shortness of breath and less cough. Denies palpitations Exam/Review of Systems Vital Signs Vitals Vital Signs Date Temp Pulse Resp B/P (MAP) Pulse Ox O2 O2 Flow FiO2 Time Delivery Rate 07/25/18 85 08:03 07/25/18 98.3 18 122/79 97 07:53 (93) 07/24/18 Room Air 15:59 07/23/18 21 00:03 07/22/18 2.0 14:18 Intake and Output 07/24/18 07/24/18 07/25/18 1515:00 23:00 07:00 IntakeIntake Total 1030 ml 550 ml BalanceBalance 1030 ml 550 ml Exam Constitutional: alert, oriented (No apparent distress, family members at [facility]) Head: normocephalic Respiratory: other (Coarse breath sounds bilaterally, no wheezing) Cardiovascular: regular rate and rhythm (S1-S2 heard) Gastrointestinal: soft, non-tender, bowel sounds Extremities: edema Labs Result Diagram: 07/25/18 0510 07/25/18 0510 Results 24hrs Laboratory Tests Test 07/24/18 13:50 07/25/18 05:10 Urine Color YI Urine Clarity CLOUDY A Urine pH 5.0 Urine Specific [place] 1.026 Urine Ketones TRACE A Urine Nitrite NEGATIVE Urine Bilirubin NEGATIVE Urine Urobilinogen NEGATIVE Urine Leukocyte Esterase 3+ H Urine Microscopic RBC 61 H Urine Microscopic WBC > 182 H Urine Calcium Oxalate Crystals FEW A Urine Bacteria FEW A Urine Mucus MODERATE Urine Hemoglobin 2+ H Urine Glucose NEGATIVE Urine Total Protein 1+ H White Blood Count 17.6 H Red Blood Count 2.76 L Hemoglobin 8.5 L Hematocrit 26.1 L Mean Corpuscular Volume 94.6 Mean Corpuscular Hemoglobin 30.8 Mean Corpuscular Hemoglobin Concent 32.6 Red Cell Distribution Width 16.5 H Platelet Count 454 H Mean Platelet Volume 9.8 Immature Granulocytes % 2.900 H Neutrophils % 83.4 H Lymphocytes % 5.6 L Monocytes % 6.5 Eosinophils % 1.3 Basophils % 0.3 Nucleated Red Blood Cells % 0.0 Immature Granulocytes # 0.510 H Neutrophils # 14.7 H Lymphocytes # 1.0 Monocytes # 1.1 H Eosinophils # 0.2 Basophils # 0.1 Nucleated Red Blood Cells # 0.0 Sodium Level 133 L Potassium Level 3.8 Chloride Level 102 Carbon Dioxide Level 25 Anion Gap 6 Blood Urea Nitrogen 9 Creatinine 0.61 Est Glomerular Filtrat Rate mL/min Glucose Level 97 Calcium Level 8.1 L Magnesium Level 1.8 Medications Medications Current Medications Nalbuphine HCl (Nubain) 10 mg Q4H PRN IV .PRURITUS; Start 07/14/18 at 14:30 Ondansetron HCl (Zofran Inj) 4 mg Q6H PRN IV .NAUSEA/VOMITING Last administered on 07/25/18at 01:15; Admin Dose 4 MG; Start 07/14/18 at 14:30 Naloxone HCl (Narcan) 0.2 mg Q2M PRN IV .RESP RATE; Start 07/14/18 at 14:30 Miscellaneous Information (* Miscellaneous Pharmacy Order) FENTANYL: 20 MCG SPI... GIVEN NEURAXIAL XX ; Start 07/14/18 at 14:30 Diphenhydramine HCl (Benadryl) 25 mg Q6H PRN IV ITCHING; Start 07/14/18 at 16:00 Pantoprazole (Protonix Tab) 40 mg DAILY@06 PO Last administered on 07/25/18at 07:44; Admin Dose 40 MG; Start 07/15/18 at 06:00 Enoxaparin Sodium (Lovenox) 30 mg DAILY@07 SC Last administered on 07/25/18at 07:50; Admin Dose 30 MG; Start 07/15/18 at 12:00 Bupropion HCl (Wellbutrin Sr) 150 mg DAILY PO Last administered on 07/25/18at 08:22; Admin Dose 150 MG; Start 07/15/18 at 09:00 Cholecalciferol (Vitamin D) 1,000 unit DAILY PO Last administered on 07/25/18 08:21; Admin Dose 1,000 UNIT; Start 07/15/18 at 09:00 Cyanocobalamin (Vitamin B12) 1,500 mcg DAILY PO Last administered on 07/25/18 08:21; Admin Dose 1,500 MCG; Start 07/15/18 at 09:00 Escitalopram Oxalate (Lexapro) 10 mg DAILY PO Last administered on 07/25/18 08:22; Admin Dose 10 MG; Start 07/14/18 at 22:00 Levothyroxine Sodium (Synthroid) 75 mcg BEFORE BREAKFAST PO Last administered on 07/25/18 07:44; Admin Dose 75 MCG; Start 07/15/18 at 07:00 Loratadine (Claritin) 10 mg DAILY PO Last administered on 07/25/18 08:22; Admin Dose 10 MG; Start 07/15/18 at 09:00 Losartan Potassium (Cozaar) 50 mg DAILY PO Last administered on 07/25/18 08:22; Admin Dose 50 MG; Start 07/15/18 at 09:00 Niacin (Niacin) 500 mg BID PO Last administered on 07/25/18 08:20; Admin Dose 500 MG; Start 07/14/18 at 21:00 Oxycodone/ Acetaminophen (Percocet (5/ 325)) 1 tab Q4H PRN PO PAIN Last administered on 07/25/18 00:43; Admin Dose 1 TAB; Start 07/15/18 at 07:30 Prednisone (Prednisone) 5 mg DAILY PO Last administered on 07/25/18 08:21; Admin Dose 5 MG; Start 07/15/18 at 09:00 Prednisone (Prednisone) 3 mg DAILY PO Last administered on 07/25/18 08:21; Admin Dose 3 MG; Start 07/15/18 at 09:00 Ferrous Sulfate (Ferrous Sulfate (Ec)) 325 mg DAILY PO Last administered on 06/28 09:10; Admin Dose 325 MG; Start 07/18/18 at 09:00; Status Hold Phenol (Cepastat Lozenge) 1 lozenge Q1H PRN MT cough Last administered on 07/18/18 19:53; Admin Dose 1 LOZENGE; Start 07/17/18 at 17:30 Acetaminophen (Tylenol Tab) 650 mg Q6H PRN PO MILD PAIN(1-3)OR ELEVATED TEMP Last administered on 07/18/18 06:32; Admin Dose 650 MG; Start 07/18/18 at 06:00 Sucralfate (Carafate Susp) 1 gm QID PO Last administered on 07/25/18 08:21; Admin Dose 1 GM; Start 07/22/18 at 13:00 Metoclopramide HCl (Reglan) 10 mg Q6H PRN IV nausea/vomiting Last administered on 07/25/18 01:15; Admin Dose 10 MG; Start 07/22/18 at 17:30 Piperacillin Sod/ Tazobactam Sod 100 ml @ 200 mls/hr Q6 IVPB Last administered on 07/25/18 07:44; Admin Dose 200 MLS/HR; Start 07/24/18 at 12:00 Metoprolol Tartrate (Lopressor) 25 mg BID PO Last administered on 07/25/18 08:22; Admin Dose 25 MG; Start 07/24/18 at 21:00 Magnesium Hydroxide (Milk Of Mag) 30 ml BID PRN PO CONSTIPATION Last administered on 07/24/18 22:46; Admin Dose 30 ML; Start 07/24/18 at 22:30 Docusate Sodium (Colace) 100 mg BID PO ; Start 07/25/18 at 09:30 Davy Donnelly DO Jul 25, 2018 11:24
[2018-07-25] MEDS: DOCUSATE SODIUM 100 MG CAP PO SCH ×2 (12:34→20:30)
[2018-07-25] MEDS ORDERED: MAGNESIUM SULFATE 3 GM in DEXTROSE 5% 100 ML IVPB ONE (13:00)
--- NOTE | 2018-07-25 14:15 | PN ---
Date/Time of Note Date/Time of Note DATE: 07/25/18 TIME: 14:12 Objective Vitals Vital Signs Date Temp Pulse Resp B/P (MAP) Pulse Ox O2 O2 Flow FiO2 Time Delivery Rate 07/25/18 98.3 85 18 136/67 98 12:06 (90) 07/24/18 Room Air 15:59 07/23/18 21 00:03 07/22/18 2.0 14:18 Intake and Output 07/24/18 07/24/18 07/25/18 1515:00 23:00 07:00 IntakeIntake Total 1030 ml 550 ml BalanceBalance 1030 ml 550 ml Results Result Diagram: 07/25/18 0510 07/25/18 0510 Medications Medications Current Medications Nalbuphine HCl (Nubain) 10 mg Q4H PRN IV .PRURITUS; Start 07/14/18 at 14:30 Ondansetron HCl (Zofran Inj) 4 mg Q6H PRN IV .NAUSEA/VOMITING Last administered on 07/25/18at 01:15; Admin Dose 4 MG; Start 07/14/18 at 14:30 Naloxone HCl (Narcan) 0.2 mg Q2M PRN IV .RESP RATE; Start 07/14/18 at 14:30 Miscellaneous Information (* Miscellaneous Pharmacy Order) FENTANYL: 20 MCG SPI... GIVEN NEURAXIAL XX ; Start 07/14/18 at 14:30 Diphenhydramine HCl (Benadryl) 25 mg Q6H PRN IV ITCHING; Start 07/14/18 at 16:00 Pantoprazole (Protonix Tab) 40 mg DAILY@06 PO Last administered on 07/25/18 07:44; Admin Dose 40 MG; Start 07/15/18 at 06:00 Enoxaparin Sodium (Lovenox) 30 mg DAILY@07 SC Last administered on 07/25/18 07:50; Admin Dose 30 MG; Start 07/15/18 at 12:00 Bupropion HCl (Wellbutrin Sr) 150 mg DAILY PO Last administered on 07/25/18 08:22; Admin Dose 150 MG; Start 07/15/18 at 09:00 Cholecalciferol (Vitamin D) 1,000 unit DAILY PO Last administered on 07/25/18 08:21; Admin Dose 1,000 UNIT; Start 07/15/18 at 09:00 Cyanocobalamin (Vitamin B12) 1,500 mcg DAILY PO Last administered on 07/25/18 08:21; Admin Dose 1,500 MCG; Start 07/15/18 at 09:00 Escitalopram Oxalate (Lexapro) 10 mg DAILY PO Last administered on 07/25/18 08:22; Admin Dose 10 MG; Start 07/14/18 at 22:00 Levothyroxine Sodium (Synthroid) 75 mcg BEFORE BREAKFAST PO Last administered on 07/25/18 07:44; Admin Dose 75 MCG; Start 07/15/18 at 07:00 Loratadine (Claritin) 10 mg DAILY PO Last administered on 07/25/18 08:22; Admin Dose 10 MG; Start 07/15/18 at 09:00 Losartan Potassium (Cozaar) 50 mg DAILY PO Last administered on 07/25/18 08:22; Admin Dose 50 MG; Start 07/15/18 at 09:00 Niacin (Niacin) 500 mg BID PO Last administered on 07/25/18 08:20; Admin Dose 500 MG; Start 07/14/18 at 21:00 Oxycodone/ Acetaminophen (Percocet (5/ 325)) 1 tab Q4H PRN PO PAIN Last administered on 07/25/18 00:43; Admin Dose 1 TAB; Start 07/15/18 at 07:30 Prednisone (Prednisone) 5 mg DAILY PO Last administered on 07/25/18 08:21; Admin Dose 5 MG; Start 07/15/18 at 09:00 Prednisone (Prednisone) 3 mg DAILY PO Last administered on 07/25/18 08:21; Admin Dose 3 MG; Start 07/15/18 at 09:00 Ferrous Sulfate (Ferrous Sulfate (Ec)) 325 mg DAILY PO Last administered on 07/18/18 09:10; Admin Dose 325 MG; Start 07/18/18 at 09:00; Status Hold Phenol (Cepastat Lozenge) 1 lozenge Q1H PRN MT cough Last administered on 07/18/18 19:53; Admin Dose 1 LOZENGE; Start 07/17/18 at 17:30 Acetaminophen (Tylenol Tab) 650 mg Q6H PRN PO MILD PAIN(1-3)OR ELEVATED TEMP Last administered on 07/18/18 06:32; Admin Dose 650 MG; Start 07/18/18 at 06:00 Sucralfate (Carafate Susp) 1 gm QID PO Last administered on 07/25/18 12:22; Admin Dose 1 GM; Start 07/22/18 at 13:00 Metoclopramide HCl (Reglan) 10 mg Q6H PRN IV nausea/vomiting Last administered on 07/25/18 01:15; Admin Dose 10 MG; Start 07/22/18 at 17:30 Piperacillin Sod/ Tazobactam Sod 100 ml @ 200 mls/hr Q6 IVPB Last administered on 07/25/18 12:22; Admin Dose 200 MLS/HR; Start 07/24/18 at 12:00 Metoprolol Tartrate (Lopressor) 25 mg BID PO Last administered on 07/25/18 08:22; Admin Dose 25 MG; Start 07/24/18 at 21:00 Magnesium Hydroxide (Milk Of Mag) 30 ml BID PRN PO CONSTIPATION Last administered on 07/24/18 22:46; Admin Dose 30 ML; Start 07/24/18 at 22:30 Docusate Sodium (Colace) 100 mg BID PO Last administered on 07/25/18 12:34; Admin Dose 100 MG; Start 07/25/18 at 09:30 Magnesium Sulfate 3 gm/Dextrose 106 ml @ 35.333 mls/ hr ONCE ONCE IVPB ; Start 07/25/18 at 13:00; Stop 07/25/18 at 15:59 VTE Prophylaxis Risk score (from Ns)>0 risk: 6 SCD applied (from Ns): Yes Lines/Catheters IV Catheter Type: Moreno in Place: No Assessment/Plan Hospital Course Subjective Patient has minimal to no abdominal pain, had an episode of emesis yesterday but patient thinks this is likely due to the contrast given during the CT of the abdomen and pelvis. Patient otherwise feeling well, able to tolerate decent breakfast today. Objective Physical exam General: Patient is laying in bed and answers questions appropriately Mentation: Patient is alert and oriented 4, mild memory loss at times Head: Normocephalic atraumatic Eyes: EOMI, pupils reactive to light Neck: Supple, nontender, midline Respiratory: Clear to auscultation bilaterally Cardiovascular: regular rate, no obvious murmurs Gastrointestinal: Nontender to palpation, bowel sounds heard. Neurological: Moves all extremities spontaneously Skin: No new skin lesions 77 yo F with PMH Rheumatoid arthritis on chronic steroids and methotrexate, HTN, hypothyroid, depression, diverticula disease, brain tumor presented to [facility] for elective sigmoid resection secondary to diverticula disease with stricture Assessment/Plan (Daily) 1. Nausea with vomiting, resolving -Patient feeling much better -Small bowel follow-through does not show obstruction - Encouraged patient to ambulate. -Titrate up diet as tolerated -IV fluids to supplement as needed -Carafate to help for hiatal hernia causing some of this nausea. 2. Iron deficiency anemia - Counseled about importance of taking iron supplements. Also encouraged to eat more foods rich in iron -Mild drop in hemoglobin earlier this week coincided with findings consistent with hemodilution, repeat blood draw subsequently show fluctuating levels of hemoglobin however the average remains consistent, will just monitor for now. -Stable, however will keep a close eye. Multifocal atrial tachycardia -Cardiology on board -Likely secondary to volume depletion and hypomagnesemia per cardiology, monitor closely on telemetry still. -Asymptomatic UTI -positive, makes sense due to prednisone use for RA -Chest x-ray does not show overt pneumonia, there is atelectasis, incentive spirometry encouraged -Blood cultures done -Due to UTI and being on prednisone and being in the hospital for quite some time, will start broad-spectrum antibiotic, infectious disease consulted Rheumatoid arthritis- stable - continue on Prednisone 8mg daily. - continue methotrexate as usual when able to tolerate p.o. better - Tylenol PRN for joint discomfort Acute sigmoid diverticulitis with stricture s/p lap sigmoid resection - doing well post operatively and tolerating current diet - General surgery to manage postoperative course - pain control Bullous Pemphigoid - continue steroids at this time - resume Plaquenil upon discharge HTN - stable - continue home medication Depression- stable - continue on Wellbutrin and Lexapro when tolerating Hypothyroidism - on levothyroxine Allergic rhinitis - continue home Claritin dose when tolerating h/o hydrocephalus s/p shunt and brain mass - stable R hearing loss - h/o schwannoma GERD with hiatal hernia - PPI -Add Carafate for nausea related to above, resolving 13. Disposition -Patient improving significantly with diet, continue to increase -Infectious disease consultation pending for UTI, antibiotic started. TIM PORTILLO Jul 25, 2018 14:15
--- NOTE | 2018-07-25 14:40 | CONS ---
Assessment/Plan Assessment/Plan Hospital Course (Demo Recall) Patient is alert sitting comfortably in a chair family at bedside, no fevers overnight. She has not been voided since 6 AM today. Denies nausea vomiting diarrhea no dysuria WBC 17.6 platelets 454 neutrophils 83.4 BUN 9 creatinine 0.61 Microbiology: Blood culture since July 16 7- CT of the abdomen and pelvis done yesterday revealed possible anastomotic leak. Please see full CT report in the chart Urinalysis this morning was positive for leukocyte Estrace WBCs and few bacteria Antimicrobials: Zosyn Physical examination: Well-nourished fragile obese elderly woman who is alert in no distress. Head atraumatic normocephalic sclera nonicteric. Neck is supple chest rise symmetrical breath sounds diminished bases. Heart: S1-S2. Abdomen obese, soft bowel sounds present. Extremities without cyanosis. Assessment: 1. Systemic inflammatory response syndrome 2. Urinary tract infection as per urinalysis, possible retention 3. Status post diverticular resection secondary to diverticulitis 07/14/18 4. Coronary artery disease 5. Rheumatoid arthritis, on chronic prednisone Discussed with family at bedside Plan: Patient is stable, surgical note reviewed, continue on current antibiotics, monitor for a retention with bladder scan and straight caths as needed, follow urine culture Consultation Date/Type/Reason Admit Date/Time Jul 14, 2018 at 10:14 Initial Consult Date 07/22/18 Type of Consult id Requesting Provider: TIM PORTILLO Date/Time of Note DATE: 07/25/18 TIME: 14:40 Exam/Review of Systems Exam Vitals Vital Signs Date Temp Pulse Resp B/P (MAP) Pulse Ox O2 O2 Flow FiO2 Time Delivery Rate 07/25/18 98.3 85 18 136/67 98 12:06 (90) 07/24/18 Room Air 15:59 07/23/18 21 00:03 07/22/18 2.0 14:18 Intake and Output 07/24/18 07/24/18 07/25/18 1515:00 23:00 07:00 IntakeIntake Total 1030 ml 550 ml BalanceBalance 1030 ml 550 ml Results Result Diagram: 07/25/18 0510 07/25/18 0510 Results 24hrs Laboratory Tests Test 07/25/18 05:10 White Blood Count 17.6 H Red Blood Count 2.76 L Hemoglobin 8.5 L Hematocrit 26.1 L Mean Corpuscular Volume 94.6 Mean Corpuscular Hemoglobin 30.8 Mean Corpuscular Hemoglobin Concent 32.6 Red Cell Distribution Width 16.5 H Platelet Count 454 H Mean Platelet Volume 9.8 Immature Granulocytes % 2.900 H Neutrophils % 83.4 H Lymphocytes % 5.6 L Monocytes % 6.5 Eosinophils % 1.3 Basophils % 0.3 Nucleated Red Blood Cells % 0.0 Immature Granulocytes # 0.510 H Neutrophils # 14.7 H Lymphocytes # 1.0 Monocytes # 1.1 H Eosinophils # 0.2 Basophils # 0.1 Nucleated Red Blood Cells # 0.0 Sodium Level 133 L Potassium Level 3.8 Chloride Level 102 Carbon Dioxide Level 25 Anion Gap 6 Blood Urea Nitrogen 9 Creatinine 0.61 Est Glomerular Filtrat Rate mL/min Glucose Level 97 Calcium Level 8.1 L Magnesium Level 1.8 Medications Medication Current Medications Nalbuphine HCl (Nubain) 10 mg Q4H PRN IV .PRURITUS; Start 07/14/18 at 14:30 Ondansetron HCl (Zofran Inj) 4 mg Q6H PRN IV .NAUSEA/VOMITING Last administered on 07/25/18at 01:15; Admin Dose 4 MG; Start 07/14/18 at 14:30 Naloxone HCl (Narcan) 0.2 mg Q2M PRN IV .RESP RATE; Start 07/14/18 at 14:30 Miscellaneous Information (* Miscellaneous Pharmacy Order) FENTANYL: 20 MCG SPI... GIVEN NEURAXIAL XX ; Start 07/14/18 at 14:30 Diphenhydramine HCl (Benadryl) 25 mg Q6H PRN IV ITCHING; Start 07/14/18 at 16 :00 Pantoprazole (Protonix Tab) 40 mg DAILY@06 PO Last administered on 07/25/18at 07:44; Admin Dose 40 MG; Start 07/15/18 at 06:00 Enoxaparin Sodium (Lovenox) 30 mg DAILY@07 SC Last administered on 07/25/18at 07:50; Admin Dose 30 MG; Start 07/15/18 at 12:00 Bupropion HCl (Wellbutrin Sr) 150 mg DAILY PO Last administered on 07/25/18at 08:22; Admin Dose 150 MG; Start 07/15/18 at 09:00 Cholecalciferol (Vitamin D) 1,000 unit DAILY PO Last administered on 07/25/18 08:21; Admin Dose 1,000 UNIT; Start 07/15/18 at 09:00 Cyanocobalamin (Vitamin B12) 1,500 mcg DAILY PO Last administered on 07/25/18 08:21; Admin Dose 1,500 MCG; Start 07/15/18 at 09:00 Escitalopram Oxalate (Lexapro) 10 mg DAILY PO Last administered on 07/25/18 08:22; Admin Dose 10 MG; Start 07/14/18 at 22:00 Levothyroxine Sodium (Synthroid) 75 mcg BEFORE BREAKFAST PO Last administered on 07/25/18 07:44; Admin Dose 75 MCG; Start 07/15/18 at 07:00 Loratadine (Claritin) 10 mg DAILY PO Last administered on 07/25/18 08:22; A dmin Dose 10 MG; Start 07/15/18 at 09:00 Losartan Potassium (Cozaar) 50 mg DAILY PO Last administered on 07/25/18 08:22; Admin Dose 50 MG; Start 07/15/18 at 09:00 Niacin (Niacin) 500 mg BID PO Last administered on 07/25/18 08:20; Admin Dose 500 MG; Start 07/14/18 at 21:00 Oxycodone/ Acetaminophen (Percocet (5/ 325)) 1 tab Q4H PRN PO PAIN Last administered on 07/25/18 00:43; Admin Dose 1 TAB; Start 07/15/18 at 07:30 Prednisone (Prednisone) 5 mg DAILY PO Last administered on 07/25/18 08:21; Admin Dose 5 MG; Start 07/15/18 at 09:00 Prednisone (Prednisone) 3 mg DAILY PO Last administered on 07/25/18 08:21; Admin Dose 3 MG; Start 07/15/18 at 09:00 Ferrous Sulfate (Ferrous Sulfate (Ec)) 325 mg DAILY PO Last administered on 07/18/18 09:10; Admin Dose 325 MG; Start 07/18/18 at 09:00; Status Hold Phenol (Cepastat Lozenge) 1 lozenge Q1H PRN MT cough Last administered on 07/18/18 19:53; Admin Dose 1 LOZENGE; Start 07/17/18 at 17:30 Acetaminophen (Tylenol Tab) 650 mg Q6H PRN PO MILD PAIN(1-3)OR ELEVATED TEMP Last administered on 07/18/18 06:32; Admin Dose 650 MG; Start 07/18/18 at 06:00 Sucralfate (Carafate Susp) 1 gm QID PO Last administered on 07/25/18 12:22; Admin Dose 1 GM; Start 07/22/18 at 13:00 Metoclopramide HCl (Reglan) 10 mg Q6H PRN IV nausea/vomiting Last administered on 07/25/18 01:15; Admin Dose 10 MG; Start 07/22/18 at 17:30 Piperacillin Sod/ Tazobactam Sod 100 ml @ 200 mls/hr Q6 IVPB Last administered on 07/25/18 12:22; Admin Dose 200 MLS/HR; Start 07/24/18 at 12:00 Metoprolol Tartrate (Lopressor) 25 mg BID PO Last administered on 07/25/18 08:22; Admin Dose 25 MG; Start 07/24/18 at 21:00 Magnesium Hydroxide (Milk Of Mag) 30 ml BID PRN PO CONSTIPATION Last administered on 07/24/18at 22:46; Admin Dose 30 ML; Start 07/24/18 at 22:30 Docusate Sodium (Colace) 100 mg BID PO Last administered on 07/25/18at 12:34; Admin Dose 100 MG; Start 07/25/18 at 09:30 Magnesium Sulfate 3 gm/Dextrose 106 ml @ 35.333 mls/ hr ONCE ONCE IVPB ; Start 07/25/18 at 13:00; Stop 07/25/18 at 15:59 HOLA LANDEROS NP Jul 25, 2018 14:40
[2018-07-26] VITALS (12 sets, daily range): BP systolic 94–129; BP diastolic 53–72; PULSE 51–83; RESP 16–18
[2018-07-26] MEDS: PIPER-TAZO 3.375 GM IV (PMX) 100 ML IVPB SCH ×4 (00:08→17:53)
[2018-07-26] MEDS: PANTOPRAZOLE (EC) 40 MG TAB PO SCH (06:16)
[2018-07-26] MEDS: LEVOTHYROXINE 75 MCG TAB PO SCH (06:16)
[2018-07-26] MEDS: ENOXAPARIN 30 MG/0.3 ML SYG SC SCH (06:33)
[2018-07-26] MEDS: SUCRALFATE (100 MG/ML) 10ML CUP PO SCH ×4 (08:12→20:46)
[2018-07-26] MEDS: LOSARTAN 50 MG TAB PO SCH (08:13)
[2018-07-26] MEDS: LORATADINE 10 MG TAB PO SCH (08:13)
[2018-07-26] MEDS: DOCUSATE SODIUM 100 MG CAP PO SCH ×2 (08:13→20:46)
[2018-07-26] MEDS: METOPROLOL 25 MG TAB PO SCH ×2 (08:14→20:45)
[2018-07-26] MEDS: NIACIN 500 MG TAB PO SCH ×2 (08:14→20:46)
[2018-07-26] MEDS: ESCITALOPRAM 10 MG TAB PO SCH (08:14)
[2018-07-26] MEDS: predniSONE 1 MG TAB PO SCH (08:15)
[2018-07-26] MEDS: CHOLECALCIFEROL 1,000 UNIT TAB PO SCH (08:16)
[2018-07-26] MEDS: predniSONE 5 MG TAB PO SCH (08:16)
[2018-07-26] MEDS: BUPROPION (SR) 150 MG TAB PO SCH (08:16)
[2018-07-26] MEDS: CYANOCOBALAMIN 500 MCG TAB PO SCH (08:16)
[2018-07-26] MEDS ORDERED: NEUTRA-PHOS 250 MG PACKET PO ONE (10:00)
--- NOTE | 2018-07-26 10:09 | PN ---
Date/Time of Note Date/Time of Note DATE: 07/26/18 TIME: 10:08 Objective Vitals Vital Signs Date Temp Pulse Resp B/P (MAP) Pulse Ox O2 O2 Flow FiO2 Time Delivery Rate 07/26/18 80 08:13 07/26/18 98.2 16 119/60 95 07:08 (79) 07/24/18 Room Air 15:59 07/23/18 21 00:03 07/22/18 2.0 14:18 Intake and Output 07/25/18 07/25/18 07/26/18 1515:00 23:00 07:00 IntakeIntake Total 100 ml 906 ml 350 ml BalanceBalance 100 ml 906 ml 350 ml Results Result Diagram: 07/26/18 0447 07/26/18446 Medications Medications Current Medications Nalbuphine HCl (Nubain) 10 mg Q4H PRN IV .PRURITUS; Start 07/14/18 at 14:30 Ondansetron HCl (Zofran Inj) 4 mg Q6H PRN IV .NAUSEA/VOMITING Last administered on 07/25/18at 01:15; Admin Dose 4 MG; Start 07/14/18 at 14:30 Naloxone HCl (Narcan) 0.2 mg Q2M PRN IV .RESP RATE; Start 07/14/18 at 14:30 Miscellaneous Information (* Miscellaneous Pharmacy Order) FENTANYL: 20 MCG SPI... GIVEN NEURAXIAL XX ; Start 07/14/18 at 14:30 Diphenhydramine HCl (Benadryl) 25 mg Q6H PRN IV ITCHING; Start 07/14/18 at 16:00 Pantoprazole (Protonix Tab) 40 mg DAILY@06 PO Last administered on 07/26/18 06:16; Admin Dose 40 MG; Start 07/15/18 at 06:00 Enoxaparin Sodium (Lovenox) 30 mg DAILY@07 SC Last administered on 07/26/18 06:33; Admin Dose 30 MG; Start 07/15/18 at 12:00 Bupropion HCl (Wellbutrin Sr) 150 mg DAILY PO Last administered on 07/26/18 08:16; Admin Dose 150 MG; Start 07/15/18 at 09:00 Cholecalciferol (Vitamin D) 1,000 unit DAILY PO Last administered on 07/26/18 08:16; Admin Dose 1,000 UNIT; Start 07/15/18 at 09:00 Cyanocobalamin (Vitamin B12) 1,500 mcg DAILY PO Last administered on 07/26/18 08:16; Admin Dose 1,500 MCG; Start 07/15/18 at 09:00 Escitalopram Oxalate (Lexapro) 10 mg DAILY PO Last administered on 07/26/18 08:14; Admin Dose 10 MG; Start 07/14/18 at 22:00 Levothyroxine Sodium (Synthroid) 75 mcg BEFORE BREAKFAST PO Last administered on 07/26/18 06:16; Admin Dose 75 MCG; Start 07/15/18 at 07:00 Loratadine (Claritin) 10 mg DAILY PO Last administered on 07/26/18 08:13; Admin Dose 10 MG; Start 07/15/18 at 09:00 Losartan Potassium (Cozaar) 50 mg DAILY PO Last administered on 07/26/18 08:13; Admin Dose 50 MG; Start 07/15/18 at 09:00 Niacin (Niacin) 500 mg BID PO Last administered on 07/26/18 08:14; Admin Dose 500 MG; Start 07/14/18 at 21:00 Oxycodone/ Acetaminophen (Percocet (5/ 325)) 1 tab Q4H PRN PO PAIN Last administered on 07/25/18 20:30; Admin Dose 1 TAB; Start 07/15/18 at 07:30 Prednisone (Prednisone) 5 mg DAILY PO Last administered on 07/26/18 08:16; Admin Dose 5 MG; Start 07/15/18 at 09:00 Prednisone (Prednisone) 3 mg DAILY PO Last administered on 07/26/18 08:15; Admin Dose 3 MG; Start 07/15/18 at 09:00 Ferrous Sulfate (Ferrous Sulfate (Ec)) 325 mg DAILY PO Last administered on 07/18/18 09:10; Admin Dose 325 MG; Start 07/18/18 at 09:00; Status Hold Phenol (Cepastat Lozenge) 1 lozenge Q1H PRN MT cough Last administered on 07/18/18 19:53; Admin Dose 1 LOZENGE; Start 07/17/18 at 17:30 Acetaminophen (Tylenol Tab) 650 mg Q6H PRN PO MILD PAIN(1-3)OR ELEVATED TEMP Last administered on 07/18/18 06:32; Admin Dose 650 MG; Start 07/18/18 at 06:00 Sucralfate (Carafate Susp) 1 gm QID PO Last administered on 07/26/18 08:12; Admin Dose 1 GM; Start 07/22/18 at 13:00 Metoclopramide HCl (Reglan) 10 mg Q6H PRN IV nausea/vomiting Last administered on 07/25/18 01:15; Admin Dose 10 MG; Start 07/22/18 at 17:30 Piperacillin Sod/ Tazobactam Sod 100 ml @ 200 mls/hr Q6 IVPB Last administered on 07/26/18 06:16; Admin Dose 200 MLS/HR; Start 07/24/18 at 12:00 Metoprolol Tartrate (Lopressor) 25 mg BID PO Last administered on 07/26/18 08:14; Admin Dose 25 MG; Start 07/24/18 at 21:00 Magnesium Hydroxide (Milk Of Mag) 30 ml BID PRN PO CONSTIPATION Last administered on 07/24/18 22:46; Admin Dose 30 ML; Start 07/24/18 at 22:30 Docusate Sodium (Colace) 100 mg BID PO Last administered on 07/26/18 08:13; Admin Dose 100 MG; Start 07/25/18 at 09:30 VTE Prophylaxis Risk score (from Ns)>0 risk: 6 SCD applied (from [facility]): Yes Lines/Catheters IV Catheter Type: Moreno in Place: No Assessment/Plan Hospital Course Subjective Patient has minimal to no abdominal pain, no emesis, had very small bowel movement today Objective Physical exam General: Patient is laying in bed and answers questions appropriately Mentation: Patient is alert and oriented 4, mild memory loss at times Head: Normocephalic atraumatic Eyes: EOMI, pupils reactive to light Neck: Supple, nontender, midline Respiratory: Clear to auscultation bilaterally Cardiovascular: regular rate, no obvious murmurs Gastrointestinal: Nontender to palpation, bowel sounds heard. Neurological: Moves all extremities spontaneously Skin: No new skin lesions 77 yo F with PMH Rheumatoid arthritis on chronic steroids and methotrexate, HTN, hypothyroid, depression, diverticula disease, brain tumor presented to [facility] for elective sigmoid resection secondary to diverticula disease with stricture Assessment/Plan (Daily) 1. Nausea with vomiting, resolving -Patient feeling much better -Small bowel follow-through does not show obstruction - Encouraged patient to ambulate. -Titrate up diet as tolerated -IV fluids to supplement as needed -Carafate to help for hiatal hernia causing some of this nausea. 2. Iron deficiency anemia - Counseled about importance of taking iron supplements. Also encouraged to eat more foods rich in iron -Mild drop in hemoglobin earlier this week coincided with findings consistent with hemodilution, repeat blood draw subsequently show fluctuating levels of hemoglobin however the average remains consistent, will just monitor for now. -Stable, however will keep a close eye. Multifocal atrial tachycardia -Cardiology on board -Likely secondary to volume depletion and hypomagnesemia per cardiology, monitor closely on telemetry still. -Asymptomatic UTI -positive, makes sense due to prednisone use for RA -Chest x-ray does not show overt pneumonia, there is atelectasis, incentive spirometry encouraged -Blood cultures done -Due to UTI and being on prednisone and being in the hospital for quite some time, will start broad-spectrum antibiotic, infectious disease consulted Rheumatoid arthritis- stable - continue on Prednisone 8mg daily. - continue methotrexate as usual when able to tolerate p.o. better - Tylenol PRN for joint discomfort Acute sigmoid diverticulitis with stricture s/p lap sigmoid resection - doing well post operatively and tolerating current diet - General surgery to manage postoperative course - pain control Bullous Pemphigoid - continue steroids at this time - resume Plaquenil upon discharge HTN - stable - continue home medication Depression- stable - continue on Wellbutrin and Lexapro when tolerating Hypothyroidism - on levothyroxine Allergic rhinitis - continue home Claritin dose when tolerating h/o hydrocephalus s/p shunt and brain mass - stable R hearing loss - h/o schwannoma GERD with hiatal hernia - PPI -Add Carafate for nausea related to above, resolving 13. Disposition -Patient improving significantly with diet, continue to increase -ID on for UTI -Patient's family decided on shelter facility for now TIM PORTILLO Jul 26, 2018 10:09
[2018-07-26] MEDS ORDERED: SENNA/DOCUSATE NA (8.6MG/50MG) TAB PO PRN (10:30)
--- NOTE | 2018-07-26 11:17 | CONS ---
Assessment/Plan Assessment/Plan Hospital Course (Demo Recall) ID PROGRESS NOTE CURRENT ABX: DAY # 2.5 => Zosyn 07/26/187 07/26/18 0447 24H INTERVAL SUMMARY * Awake, alert, responsive, much improved -- taking PO's w/BM reported today * No fevers, WBC improving, VSS * Per surgery note: OK change ABX to PO == UA was (+) -- no micro results available [facility] DATE: 07/14/18 Operation/Procedure Performed => S/P Laparoscopic -assisted LAR, with proctosigmoidoscopy * Preoperative Diagnosis: Sigmoid stricture with history of colitis * Postoperative Diagnosis: Sigmoid diverticulitis w/ sigmoid narrowing and i nflammation into mesentery and pelvis DIAGNOSTIC IMAGING * 07/26/18 CXR: * CT of the abdomen and pelvis done yesterday revealed possible anastomotic leak. Please see full CT report in the chart * 07/24/18 Urinalysis positive for leukocyte Estrace 3+ + >180 WBCs and few bacteria MICRO/OTHER * 07/23/18 BCx (-) PHYSICAL EXAMINATION: GENERAL: VSS, NAD HEENT: AT, NC, anicteric, NECK: Supple, CHEST: Equal chest rise bilaterally, without dyspnea on observation HEART: Pulse RRR ABDOMEN: Soft / NT : EXTREMITIES: Warm, dry SKIN: No rash, no diaphoresis ID ASSESSMENT 78 yo F admit with: 1. Systemic inflammatory response syndrome 2. Urinary tract infection as per urinalysis, possible retention 3. Status post diverticular resection secondary to diverticulitis 07/14/18 4. Coronary artery disease 5. Rheumatoid arthritis, on chronic prednisone (-)MRSA Nares ABX ALLERGIES: NONE to ABX INVASIVES: PIV CURRENT ABX: DAY # 2.5 Zosyn ID RECOMMENDATIONS/PLAN: 1. Continue current ABX== she has responded to empiric Zosyn for UTI and there are no sensitivities reported to guide ABX taper to PO 2. Will f/u tomorrow . Consultation Date/Type/Reason Admit Date/Time Jul 14, 2018 at 10:14 Initial Consult Date 07/22/18 Requesting Provider: TIM PORTILLO Date/Time of Note DATE: 07/26/18 TIME: 11:17 Exam/Review of Systems Exam Vitals Vital Signs Date Temp Pulse Resp B/P (MAP) Pulse Ox O2 O2 Flow FiO2 Time Delivery Rate 07/26/18 97.7 69 16 94/55 (68) 96 11:00 07/24/18 Room Air 15:59 07/23/18 21 00:03 07/22/18 2.0 14:18 Intake and Output 07/25/18 07/25/18 07/26/18 1414:59 22:59 06:59 IntakeIntake Total 100 ml 906 ml 350 ml BalanceBalance 100 ml 906 ml 350 ml Results Result Diagram: 07/26/18 0447 07/26/18 0447 Results 24hrs Laboratory Tests Test 07/26/18 04:47 White Blood Count 13.3 #H Red Blood Count 2.84 L Hemoglobin 8.6 L Hematocrit 27.0 L Mean Corpuscular Volume 95.1 Mean Corpuscular Hemoglobin 30.3 Mean Corpuscular Hemoglobin Concent 31.9 L Red Cell Distribution Width 16.7 H Platelet Count 485 H Mean Platelet Volume 10.1 Immature Granulocytes % 5.500 H Neutrophils % Segmented Neutrophils % (Manual) 78 H Band Neutrophils % (Manual) 3 Lymphocytes % Lymphocytes % (Manual) 6 L Reactive Lymphocytes % (Manual) 4 H Monocytes % Monocytes % (Manual) 2 Eosinophils % Eosinophils % (Manual) 4 Basophils % Metamyelocytes % (manual) 2 H Myelocytes % (Manual) 1 H Nucleated Red Blood Cells % 0.0 Immature Granulocytes # 0.730 H Neutrophils # Neutrophils # (Manual) 10.4 H Band Neutrophils # 0.3 Lymphocytes (Manual) 0.7 L Lymphocytes # Reactive Lymphocytes # 0.5 H Monocytes # Monocytes # (Manual) 0.2 L Eosinophils # Basophils # Metamyelocytes # 0.2 H Myelocytes # 0.1 H Nucleated Red Blood Cells # Platelet Estimate NORMAL Polychromasia 3+ Hypochromasia 2+ Poikilocytosis 1+ Anisocytosis 1+ Target Cells 1+ Sodium Level 132 L Potassium Level 4.4 Chloride Level 99 Carbon Dioxide Level 26 Anion Gap 7 Blood Urea Nitrogen 10 Creatinine 0.70 Est Glomerular Filtrat Rate mL/min Glucose Level 88 Calcium Level 7.9 L Phosphorus Level 2.2 L Magnesium Level 2.3 Medications Medication Current Medications Nalbuphine HCl (Nubain) 10 mg Q4H PRN IV .PRURITUS; Start 07/14/18 at 14:30 Ondansetron HCl (Zofran Inj) 4 mg Q6H PRN IV .NAUSEA/VOMITING Last administered on 07/25/18 01:15; Admin Dose 4 MG; Start 07/14/18 at 14:30 Naloxone HCl (Narcan) 0.2 mg Q2M PRN IV .RESP RATE; Start 07/14/18 at 14:30 Miscellaneous Information (* Miscellaneous Pharmacy Order) FENTANYL: 20 MCG SPI... GIVEN NEURAXIAL XX ; Start 07/14/18 at 14:30 Diphenhydramine HCl (Benadryl) 25 mg Q6H PRN IV ITCHING; Start 07/14/18 at 16:00 Pantoprazole (Protonix Tab) 40 mg DAILY@06 PO Last administered on 07/26/18 06:16; Admin Dose 40 MG; Start 07/15/18 at 06:00 Enoxaparin Sodium (Lovenox) 30 mg DAILY@07 SC Last administered on 07/26/18 06:33; Admin Dose 30 MG; Start 07/15/18 at 12:00 Bupropion HCl (Wellbutrin Sr) 150 mg DAILY PO Last administered on 07/26/18 08:16; Admin Dose 150 MG; Start 07/15/18 at 09:00 Cholecalciferol (Vitamin D) 1,000 unit DAILY PO Last administered on 07/26/18 08:16; Admin Dose 1,000 UNIT; Start 07/15/18 at 09:00 Cyanocobalamin (Vitamin B12) 1,500 mcg DAILY PO Last administered on 07/26/18 08:16; Admin Dose 1,500 MCG; Start 07/15/18 at 09:00 Escitalopram Oxalate (Lexapro) 10 mg DAILY PO Last administered on 07/26/18 08:14; Admin Dose 10 MG; Start 07/14/18 at 22:00 Levothyroxine Sodium (Synthroid) 75 mcg BEFORE BREAKFAST PO Last administered on 07/26/18 06:16; Admin Dose 75 MCG; Start 07/15/18 at 07:00 Loratadine (Claritin) 10 mg DAILY PO Last administered on 07/26/18 08:13; Admin Dose 10 MG; Start 07/15/18 at 09:00 Losartan Potassium (Cozaar) 50 mg DAILY PO Last administered on 07/26/18 08:13; Admin Dose 50 MG; Start 07/15/18 at 09:00 Niacin (Niacin) 500 mg BID PO Last administered on 07/26/18 08:14; Admin Dose 500 MG; Start 07/14/18 at 21:00 Oxycodone/ Acetaminophen (Percocet (5/ 325)) 1 tab Q4H PRN PO PAIN Last administered on 07/25/18 20:30; Admin Dose 1 TAB; Start 07/15/18 at 07:30 Prednisone (Prednisone) 5 mg DAILY PO Last administered on 07/26/18 08:16; Admin Dose 5 MG; Start 07/15/18 at 09:00 Prednisone (Prednisone) 3 mg DAILY PO Last administered on 07/26/18 08:15; Admin Dose 3 MG; Start 07/15/18 at 09:00 Ferrous Sulfate (Ferrous Sulfate (Ec)) 325 mg DAILY PO Last administered on 06/28 09:10; Admin Dose 325 MG; Start 07/18/18 at 09:00; Status Hold Phenol (Cepastat Lozenge) 1 lozenge Q1H PRN MT cough Last administered on 07/18/18 19:53; Admin Dose 1 LOZENGE; Start 07/17/18 at 17:30 Acetaminophen (Tylenol Tab) 650 mg Q6H PRN PO MILD PAIN(1-3)OR ELEVATED TEMP Last administered on 07/18/18 06:32; Admin Dose 650 MG; Start 07/18/18 at 06:00 Sucralfate (Carafate Susp) 1 gm QID PO Last administered on 07/26/18 08:12; Admin Dose 1 GM; Start 07/22/18 at 13:00 Metoclopramide HCl (Reglan) 10 mg Q6H PRN IV nausea/vomiting Last administered on 07/25/18 01:15; Admin Dose 10 MG; Start 07/22/18 at 17:30 Piperacillin Sod/ Tazobactam Sod 100 ml @ 200 mls/hr Q6 IVPB Last administered on 07/26/18 11:10; Admin Dose 200 MLS/HR; Start 07/24/18 at 12:00 Metoprolol Tartrate (Lopressor) 25 mg BID PO Last administered on 07/26/18 08:14; Admin Dose 25 MG; Start 07/24/18 at 21:00 Magnesium Hydroxide (Milk Of Mag) 30 ml BID PRN PO CONSTIPATION Last administered on 07/24/18at 22:46; Admin Dose 30 ML; Start 07/24/18 at 22:30 Docusate Sodium (Colace) 100 mg BID PO Last administered on 07/26/18at 08:13; Admin Dose 100 MG; Start 07/25/18 at 09:30 Senna/Docusate Sodium (Senokot-S) 1 tab DAILY PRN PO constipation; Start 07/26/18 at 10:30 JUDY ZARATE NP Jul 26, 2018 11:17
--- NOTE | 2018-07-26 11:53 | PN ---
Date/Time of Note Date/Time of Note DATE: 07/26/18 TIME: 11:50 Assessment/Plan Lines/Catheters IV Catheter Type (from Nrs): [place] in Place (from Nrs): No Assessment/Plan Chief Complaint/Hosp Course POD #1 s/p diverticular resection on this 77 y/o White female w/ severe RA. Pt will return to her usual oral prednisone dose of 8 mg a day, after receiving perioperative IV steroids POD #2 Doing well, passing gas POD #10 Elevated wbx ( to 20,000 w/o chills or fever). Poor po till today. POD #11 Falling wbc on Zosyn, awaiting sensitivity. PO is improved POD #12 WBC is nearly normal on Zosyn. Eating well ( soft diet) Assessment/Plan From the surgical standpoint should be able to go to SNF once wbc is normal and sensitivities allow conversion to an oral ANTB Subjective 24 Hr Interval Summary Pt looks well, and has been feeling better. Had a small BM this am, and has less abdominal ( upper) discomfort on Carafate. No nausea or emesis Constitutional: no complaints, improved, ambulates, BM, flatus Feeding: baseline diet Pain Control: well controlled Exam/Review of Systems Vital Signs Vitals Vital Signs Date Temp Pulse Resp B/P (MAP) Pulse Ox O2 O2 Flow FiO2 Time Delivery Rate 07/26/18 97.7 69 16 94/55 (68) 96 11:00 07/24/18 Room Air 15:59 07/23/18 21 00:03 07/22/18 2.0 14:18 Intake and Output 07/25/18 07/25/18 07/26/18 1515:00 23:00 07:00 IntakeIntake Total 100 ml 906 ml 350 ml BalanceBalance 100 ml 906 ml 350 ml Exam Constitutional: alert, oriented Gastrointestinal: soft, non-tender Results Result Diagram: 07/26/18 0447 07/26/18 0447 LUCI DIAZ MD Jul 26, 2018 11:53
[2018-07-26] MEDS: OXYCODONE/ACETAMINOPHEN (5/325) TAB PO PRN (13:52)
--- NOTE | 2018-07-26 16:49 | CONS ---
Consult Date/Type/Reason Admit Date/Time Jul 14, 2018 at 10:14 Initial Consult Date 07/22/18 Requesting Provider: TIM PORTILLO Date/Time of Note DATE: 07/26/18 TIME: 16:43 Subjective cardiology follow up note S D/W staff and daughter tele reviewed no more SVT MAT no chestpain she feels much better today O General: no acute distress HEENT: NC/AT. pupils are equal. round. NECK: NO JVD. no stridor. CV: RRR. systolic murmur; no gallop or rubs. PULM: no wheezing or rhonchi. GI: SOFT, mild tenderness, ND, no rebound or guarding Extremity: trace B/L LE edema. no clubbing. neuro: awake and alert, OX3. Psych: calm and pleasant rectal: deferred : normal Objective Vitals Vital Signs Date Temp Pulse Resp B/P (MAP) Pulse Ox O2 O2 Flow FiO2 Time Delivery Rate 07/26/18 71 16:10 07/26/18 98.0 16 112/71 98 15:14 (85) 07/24/18 Room Air 15:59 07/23/18 21 00:03 07/22/18 2.0 14:18 Intake and Output 07/25/18 07/25/18 07/26/18 1515:00 23:00 07:00 IntakeIntake Total 100 ml 906 ml 350 ml BalanceBalance 100 ml 906 ml 350 ml Results/Medications Result Diagram: 07/26/18 0447 07/26/18 0447 Results 24 hrs Laboratory Tests Test 07/26/18 04:47 White Blood Count 13.3 #H Red Blood Count 2.84 L Hemoglobin 8.6 L Hematocrit 27.0 L Mean Corpuscular Volume 95.1 Mean Corpuscular Hemoglobin 30.3 Mean Corpuscular Hemoglobin Concent 31.9 L Red Cell Distribution Width 16.7 H Platelet Count 485 H Mean Platelet Volume 10.1 Immature Granulocytes % 5.500 H Neutrophils % Segmented Neutrophils % (Manual) 78 H Band Neutrophils % (Manual) 3 Lymphocytes % Lymphocytes % (Manual) 6 L Reactive Lymphocytes % (Manual) 4 H Monocytes % Monocytes % (Manual) 2 Eosinophils % Eosinophils % (Manual) 4 Basophils % Metamyelocytes % (manual) 2 H Myelocytes % (Manual) 1 H Nucleated Red Blood Cells % 0.0 Immature Granulocytes # 0.730 H Neutrophils # Neutrophils # (Manual) 10.4 H Band Neutrophils # 0.3 Lymphocytes (Manual) 0.7 L Lymphocytes # Reactive Lymphocytes # 0.5 H Monocytes # Monocytes # (Manual) 0.2 L Eosinophils # Basophils # Metamyelocytes # 0.2 H Myelocytes # 0.1 H Nucleated Red Blood Cells # Platelet Estimate NORMAL Polychromasia 3+ Hypochromasia 2+ Poikilocytosis 1+ Anisocytosis 1+ Target Cells 1+ Sodium Level 132 L Potassium Level 4.4 Chloride Level 99 Carbon Dioxide Level 26 Anion Gap 7 Blood Urea Nitrogen 10 Creatinine 0.70 Est Glomerular Filtrat Rate mL/min Glucose Level 88 Calcium Level 7.9 L Phosphorus Level 2.2 L Magnesium Level 2.3 Home Meds Reported Medications Loratadine* (Loratadine*) 10 Mg Tablet, 10 MG PO DAILY, #30 TAB 07/14/18 Sennosides* (Senna Lax*) 8.6 Mg Tablet, 1 TAB PO BID, TAB 07/14/18 Cyanocobalamin* (Vitamin B12*) 500 Mcg Tab, 1500 MCG PO DAILY, TAB 07/14/18 Niacin* (Niacin*) 500 Mg Tablet, 500 MG PO BID, TAB 07/14/18 Cholecalciferol* (Vitamin D3*) 1,000 Unit Tablet, 1000 UNIT PO DAILY, TAB 07/14/18 Acetaminophen* (Acetaminophen*) 650 Mg Tablet, 650 MG PO DAILY PRN for PAIN, #30 TAB 07/14/18 Methotrexate* (Methotrexate*) 2.5 Mg Tab, 7.5 MG PO EVERY SATURDAY, TAB 07/14/18 Hydroxychloroquine Sulfate* (Plaquenil*) 200 Mg Tab, 300 MG PO DAILY, TAB 07/14/18 Prednisone* (Prednisone*) 1 Mg Tablet, 8 MG PO DAILY, TAB 07/14/18 Lactulose* (Lactulose*) 10 Gm/15 Ml Solution, 20 GM PO DAILY PRN for CONSTIPATION, ML 07/11/18 Escitalopram Oxalate* (Lexapro*) 10 Mg Tablet, 10 MG PO DAILY, #30 TAB 07/11/18 Omeprazole* (Omeprazole*) 40 Mg Capsule.dr, 40 MG PO DAILY, #30 CAP 07/11/18 Bupropion Hcl* (Wellbutrin SR*) 150 Mg Tablet.sa, 150 MG PO DAILY, TAB.SA 07/11/18 Levothyroxine Sodium* (Levothyroxine Sodium*) 75 Mcg Tablet, 75 MCG PO BEFORE BREAKFAST, #30 TAB 07/11/18 Losartan Potassium* (Losartan Potassium*) 50 Mg Tablet, 50 MG PO DAILY, TAB 07/11/18 Medications Current Medications Nalbuphine HCl (Nubain) 10 mg Q4H PRN IV .PRURITUS; Start 07/14/18 at 14:30 Ondansetron HCl (Zofran Inj) 4 mg Q6H PRN IV .NAUSEA/VOMITING Last administered on 07/25/18 01:15; Admin Dose 4 MG; Start 07/14/18 at 14:30 Naloxone HCl (Narcan) 0.2 mg Q2M PRN IV .RESP RATE; Start 07/14/18 at 14:30 Miscellaneous Information (* Miscellaneous Pharmacy Order) FENTANYL: 20 MCG SPI... GIVEN NEURAXIAL XX ; Start 07/14/18 at 14:30 Diphenhydramine HCl (Benadryl) 25 mg Q6H PRN IV ITCHING; Start 07/14/18 at 16:00 Pantoprazole (Protonix Tab) 40 mg DAILY@06 PO Last administered on 07/26/18 06:16; Admin Dose 40 MG; Start 07/15/18 at 06:00 Enoxaparin Sodium (Lovenox) 30 mg DAILY@07 SC Last administered on 07/26/18 06:33; Admin Dose 30 MG; Start 07/15/18 at 12:00 Bupropion HCl (Wellbutrin Sr) 150 mg DAILY PO Last administered on 07/26/18 08:16; Admin Dose 150 MG; Start 07/15/18 at 09:00 Cholecalciferol (Vitamin D) 1,000 unit DAILY PO Last administered on 07/26/18 08:16; Admin Dose 1,000 UNIT; Start 07/15/18 at 09:00 Cyanocobalamin (Vitamin B12) 1,500 mcg DAILY PO Last administered on 07/26/18 08:16; Admin Dose 1,500 MCG; Start 07/15/18 at 09:00 Escitalopram Oxalate (Lexapro) 10 mg DAILY PO Last administered on 07/26/18 08:14; Admin Dose 10 MG; Start 07/14/18 at 22:00 Levothyroxine Sodium (Synthroid) 75 mcg BEFORE BREAKFAST PO Last administered on 07/26/18 06:16; Admin Dose 75 MCG; Start 07/15/18 at 07:00 Loratadine (Claritin) 10 mg DAILY PO Last administered on 07/26/18 08:13; Admin Dose 10 MG; Start 07/15/18 at 09:00 Losartan Potassium (Cozaar) 50 mg DAILY PO Last administered on 07/26/18 08:13; Admin Dose 50 MG; Start 07/15/18 at 09:00 Niacin (Niacin) 500 mg BID PO Last administered on 07/26/18 08:14; Admin Dose 500 MG; Start 07/14/18 at 21:00 Oxycodone/ Acetaminophen (Percocet (5/ 325)) 1 tab Q4H PRN PO PAIN Last administered on 07/26/18 13:52; Admin Dose 1 TAB; Start 07/15/18 at 07:30 Prednisone (Prednisone) 5 mg DAILY PO Last administered on 07/26/18 08:16; Admin Dose 5 MG; Start 07/15/18 at 09:00 Prednisone (Prednisone) 3 mg DAILY PO Last administered on 07/26/18 08:15; Admin Dose 3 MG; Start 07/15/18 at 09:00 Ferrous Sulfate (Ferrous Sulfate (Ec)) 325 mg DAILY PO Last administered on 07/18/18 09:10; Admin Dose 325 MG; Start 07/18/18 at 09:00; Status Hold Phenol (Cepastat Lozenge) 1 lozenge Q1H PRN MT cough Last administered on 07/18/18 19:53; Admin Dose 1 LOZENGE; Start 07/17/18 at 17:30 Acetaminophen (Tylenol Tab) 650 mg Q6H PRN PO MILD PAIN(1-3)OR ELEVATED TEMP Last administered on 07/18/18 06:32; Admin Dose 650 MG; Start 07/18/18 at 06:00 Sucralfate (Carafate Susp) 1 gm QID PO Last administered on 07/26/18 13:49; Admin Dose 1 GM; Start 07/22/18 at 13:00 Metoclopramide HCl (Reglan) 10 mg Q6H PRN IV nausea/vomiting Last administered on 07/25/18 01:15; Admin Dose 10 MG; Start 07/22/18 at 17:30 Piperacillin Sod/ Tazobactam Sod 100 ml @ 200 mls/hr Q6 IVPB Last administered on 07/26/18 11:10; Admin Dose 200 MLS/HR; Start 07/24/18 at 12:00 Metoprolol Tartrate (Lopressor) 25 mg BID PO Last administered on 07/26/18 08 :14; Admin Dose 25 MG; Start 07/24/18 at 21:00 Magnesium Hydroxide (Milk Of Mag) 30 ml BID PRN PO CONSTIPATION Last administered on 07/24/18 22:46; Admin Dose 30 ML; Start 07/24/18 at 22:30 Docusate Sodium (Colace) 100 mg BID PO Last administered on 07/26/18 08:13; Admin Dose 100 MG; Start 07/25/18 at 09:30 Senna/Docusate Sodium (Senokot-S) 1 tab DAILY PRN PO constipation; Start 07/26/18 at 10:30 Assessment/Plan Hospital Course (Demo Recall) Multifocal atrial tachycardia: improved now Status post abdominal surgery Hypertension anemia REC: -CONT tele -Maintain potassium above 4.0 and magnesium above 2.0 -Continue beta-melchor as tolerated post op care as per surgery Thank you for his referral. We will continue to follow along with you until Dr. Hill/Mamadou return on Saturday DEREK BRUCE MD [facility] DEREK BRUCE MD Jul 26, 2018 16:49
--- NOTE | 2018-07-26 18:15 | RADRPT ---
Vent Rate: 94 bpm RR Interval: 0 msec OK Interval: 128 msec QRS Duration: 72 msec QT Interval: 352 msec QTC Interval: 440 msec P-R-T [place]: 6 - -12 - 28 degrees Sinus rhythm Blocked PAC Possible Left atrial enlargement Abnormal ECG Electronically Signed By: Isma Thurston
--- NOTE | 2018-07-26 18:20 | RADRPT ---
Vent Rate: 104 bpm RR Interval: 0 msec TX Interval: 152 msec QRS Duration: 78 msec QT Interval: 326 msec QTC Interval: 428 msec P-R-T [place]: 15 - -14 - 46 degrees Sinus rhythm with frequent PACs Abnormal ECG Electronically Signed By: Isma Thurston
[2018-07-26] MEDS: ACETAMINOPHEN 325 MG TAB PO PRN (22:22)
[2018-07-27] VITALS (11 sets, daily range): BP systolic 118–153; BP diastolic 61–70; PULSE 68–84; RESP 16–18
[2018-07-27] MEDS: PIPER-TAZO 3.375 GM IV (PMX) 100 ML IVPB SCH ×3 (00:25→12:20)
[2018-07-27] MEDS: ACETAMINOPHEN 325 MG TAB PO PRN ×2 (02:34→21:35)
[2018-07-27] MEDS: PANTOPRAZOLE (EC) 40 MG TAB PO SCH (06:38)
[2018-07-27] MEDS: LEVOTHYROXINE 75 MCG TAB PO SCH (06:38)
[2018-07-27] MEDS: METOPROLOL 25 MG TAB PO SCH ×2 (06:39→20:13)
[2018-07-27] MEDS: ENOXAPARIN 30 MG/0.3 ML SYG SC SCH (06:48)
[2018-07-27] MEDS: predniSONE 5 MG TAB PO SCH (08:21)
[2018-07-27] MEDS: LOSARTAN 50 MG TAB PO SCH (08:21)
[2018-07-27] MEDS: NIACIN 500 MG TAB PO SCH ×2 (08:21→20:12)
[2018-07-27] MEDS: CYANOCOBALAMIN 500 MCG TAB PO SCH (08:22)
[2018-07-27] MEDS: DOCUSATE SODIUM 100 MG CAP PO SCH ×2 (08:22→20:12)
[2018-07-27] MEDS: predniSONE 1 MG TAB PO SCH (08:22)
[2018-07-27] MEDS: CHOLECALCIFEROL 1,000 UNIT TAB PO SCH (08:22)
[2018-07-27] MEDS: LORATADINE 10 MG TAB PO SCH (08:22)
[2018-07-27] MEDS: BUPROPION (SR) 150 MG TAB PO SCH (08:23)
[2018-07-27] MEDS: ESCITALOPRAM 10 MG TAB PO SCH (08:23)
[2018-07-27] MEDS: SUCRALFATE (100 MG/ML) 10ML CUP PO SCH ×4 (08:23→20:26)
--- NOTE | 2018-07-27 11:51 | PN ---
Date/Time of Note Date/Time of Note DATE: 07/27/18 TIME: 11:51 Objective Vitals Vital Signs Date Temp Pulse Resp B/P (MAP) Pulse Ox O2 O2 Flow FiO2 Time Delivery Rate 07/27/18 98.0 74 16 126/61 98 11:23 (82) 07/27/18 Room Air 08:18 Intake and Output 07/26/18 07/26/18 07/27/18 1414:59 22:59 06:59 IntakeIntake Total 1200 ml OutputOutput Total 4 ml BalanceBalance 1196 ml Results Result Diagram: 07/27/185 07/27/18 0455 Medications Medications Current Medications Nalbuphine HCl (Nubain) 10 mg Q4H PRN IV .PRURITUS; Start 07/14/18 at 14:30 Ondansetron HCl (Zofran Inj) 4 mg Q6H PRN IV .NAUSEA/VOMITING Last administered on 07/25/18at 01:15; Admin Dose 4 MG; Start 07/14/18 at 14:30 Naloxone HCl (Narcan) 0.2 mg Q2M PRN IV .RESP RATE; Start 07/14/18 at 14:30 Miscellaneous Information (* Miscellaneous Pharmacy Order) FENTANYL: 20 MCG SPI... GIVEN NEURAXIAL XX ; Start 07/14/18 at 14:30 Diphenhydramine HCl (Benadryl) 25 mg Q6H PRN IV ITCHING; Start 07/14/18 at 16:00 Pantoprazole (Protonix Tab) 40 mg DAILY@06 PO Last administered on 07/27/18at 06:38; Admin Dose 40 MG; Start 07/15/18 at 06:00 Enoxaparin Sodium (Lovenox) 30 mg DAILY@07 SC Last administered on 07/27/18at 06:48; Admin Dose 30 MG; Start 07/15/18 at 12:00 Bupropion HCl (Wellbutrin Sr) 150 mg DAILY PO Last administered on 07/27/18at 08:23; Admin Dose 150 MG; Start 07/15/18 at 09:00 Cholecalciferol (Vitamin D) 1,000 unit DAILY PO Last administered on 07/27/18at 08:22; Admin Dose 1,000 UNIT; Start 07/15/18 at 09:00 Cyanocobalamin (Vitamin B12) 1,500 mcg DAILY PO Last administered on 07/27/18 08:22; Admin Dose 1,500 MCG; Start 07/15/18 at 09:00 Escitalopram Oxalate (Lexapro) 10 mg DAILY PO Last administered on 07/27/18 08:23; Admin Dose 10 MG; Start 07/14/18 at 22:00 Levothyroxine Sodium (Synthroid) 75 mcg BEFORE BREAKFAST PO Last administered on 07/27/18 06:38; Admin Dose 75 MCG; Start 07/15/18 at 07:00 Loratadine (Claritin) 10 mg DAILY PO Last administered on 07/27/18 08:22; Admin Dose 10 MG; Start 07/15/18 at 09:00 Losartan Potassium (Cozaar) 50 mg DAILY PO Last administered on 07/27/18 08:21; Admin Dose 50 MG; Start 07/15/18 at 09:00 Niacin (Niacin) 500 mg BID PO Last administered on 07/27/18 08:21; Admin Dose 500 MG; Start 07/14/18 at 21:00 Oxycodone/ Acetaminophen (Percocet (5/ 325)) 1 tab Q4H PRN PO PAIN Last administered on 07/26/18 13:52; Admin Dose 1 TAB; Start 07/15/18 at 07:30 Prednisone (Prednisone) 5 mg DAILY PO Last administered on 07/27/18 08:21; Admin Dose 5 MG; Start 07/15/18 at 09:00 Prednisone (Prednisone) 3 mg DAILY PO Last administered on 07/27/18 08:22; Admin Dose 3 MG; Start 07/15/18 at 09:00 Ferrous Sulfate (Ferrous Sulfate (Ec)) 325 mg DAILY PO Last administered on 07/18/18 09:10; Admin Dose 325 MG; Start 07/18/18 at 09:00; Status Hold Phenol (Cepastat Lozenge) 1 lozenge Q1H PRN MT cough Last administered on 07/18/18 19:53; Admin Dose 1 LOZENGE; Start 07/17/18 at 17:30 Acetaminophen (Tylenol Tab) 650 mg Q6H PRN PO MILD PAIN(1-3)OR ELEVATED TEMP Last administered on 07/27/18 02:34; Admin Dose 650 MG; Start 07/18/18 at 06:00 Sucralfate (Carafate Susp) 1 gm QID PO Last administered on 07/27/18 08:23; Admin Dose 1 GM; Start 07/22/18 at 13:00 Metoclopramide HCl (Reglan) 10 mg Q6H PRN IV nausea/vomiting Last administered on 07/25/18 01:15; Admin Dose 10 MG; Start 07/22/18 at 17:30 Piperacillin Sod/ Tazobactam Sod 100 ml @ 200 mls/hr Q6 IVPB Last administered on 07/27/18 06:39; Admin Dose 200 MLS/HR; Start 07/24/18 at 12:00 Metoprolol Tartrate (Lopressor) 25 mg BID PO Last administered on 07/27/18 06:39; Admin Dose 25 MG; Start 07/24/18 at 21:00 Magnesium Hydroxide (Milk Of Mag) 30 ml BID PRN PO CONSTIPATION Last administer ed on 07/24/18 22:46; Admin Dose 30 ML; Start 07/24/18 at 22:30 Docusate Sodium (Colace) 100 mg BID PO Last administered on 07/27/18 08:22; Admin Dose 100 MG; Start 07/25/18 at 09:30 Senna/Docusate Sodium (Senokot-S) 1 tab DAILY PRN PO constipation; Start 07/26/18 at 10:30 VTE Prophylaxis Risk score (from Ns)>0 risk: 6 SCD applied (from Ns): Yes Lines/Catheters IV Catheter Type: Moreno in Place: No Assessment/Plan Hospital Course Subjective Patient has minimal to no abdominal pain, no emesis, eating well Objective Physical exam General: Patient is laying in bed and answers questions appropriately Mentation: Patient is alert and oriented 4, mild memory loss at times Head: Normocephalic atraumatic Eyes: EOMI, pupils reactive to light Neck: Supple, nontender, midline Respiratory: Clear to auscultation bilaterally Cardiovascular: regular rate, no obvious murmurs Gastrointestinal: Nontender to palpation, bowel sounds heard. Neurological: Moves all extremities spontaneously Skin: No new skin lesions 77 yo F with PMH Rheumatoid arthritis on chronic steroids and methotrexate, HTN, hypothyroid, depression, diverticula disease, brain tumor presented to [facility] for elective sigmoid resection secondary to diverticula disease with stricture Assessment/Plan (Daily) 1. Nausea with vomiting, resolving -Patient feeling much better -Small bowel follow-through does not show obstruction - Encouraged patient to ambulate. -Titrate up diet as tolerated -IV fluids to supplement as needed -Carafate to help for hiatal hernia causing some of this nausea. 2. Iron deficiency anemia - Counseled about importance of taking iron supplements. Also encouraged to eat more foods rich in iron -Mild drop in hemoglobin earlier this week coincided with findings consistent with hemodilution, repeat blood draw subsequently show fluctuating levels of hemoglobin however the average remains consistent, will just monitor for now. -Stable, however will keep a close eye. Multifocal atrial tachycardia -Cardiology on board -Likely secondary to volume depletion and hypomagnesemia per cardiology, monitor closely on telemetry still. -Asymptomatic UTI -positive, makes sense due to prednisone use for RA -Chest x-ray does not show overt pneumonia, there is atelectasis, incentive spirometry encouraged -Blood cultures done -Due to UTI and being on prednisone and being in the hospital for quite some time, will start broad-spectrum antibiotic, infectious disease consulted Rheumatoid arthritis- stable - continue on Prednisone 8mg daily. - continue methotrexate as usual when able to tolerate p.o. better - Tylenol PRN for joint discomfort Acute sigmoid diverticulitis with stricture s/p lap sigmoid resection - doing well post operatively and tolerating current diet - General surgery to manage postoperative course - pain control Bullous Pemphigoid - continue steroids at this time - resume Plaquenil upon discharge HTN - stable - continue home medication Depression- stable - continue on Wellbutrin and Lexapro when tolerating Hypothyroidism - on levothyroxine Allergic rhinitis - continue home Claritin dose when tolerating h/o hydrocephalus s/p shunt and brain mass - stable R hearing loss - h/o schwannoma GERD with hiatal hernia - PPI -Add Carafate for nausea related to above, resolving 13. Disposition -Patient improving significantly with diet, continue to increase -ID on for UTI -Patient's family decided on long-term facility for now, CM notified TIM PORTILLO Jul 27, 2018 11:51
--- NOTE | 2018-07-27 13:53 | CONS ---
Assessment/Plan Assessment/Plan Hospital Course (Demo Recall) ID PROGRESS NOTE CURRENT ABX: DAY # 3.5 => Zosyn 24H INTERVAL SUMMARY * ABD pain improved == she has hiatal hernia and GERD -- taking PO's == small bowel f/u no obstruction * Small BMyesterday -- she feels constipated * No fevers, WBC improving, VSS * Per surgery note: OK change ABX to PO == UA was (+) -- no micro results available [facility] DATE: 07/14/18 Operation/Procedure Performed => S/P Laparoscopic -assisted LAR, with proctosigmoidoscopy * Preoperative Diagnosis: Sigmoid stricture with history of colitis * Postoperative Diagnosis: Sigmoid diverticulitis w/ sigmoid narrowing and inflammation into mesentery and pelvis DIAGNOSTIC IMAGING * 07/26/18 CXR: * CT of the abdomen and pelvis done yesterday revealed possible anastomotic leak. Please see full CT report in the chart * 07/24/18 Urinalysis positive for leukocyte Estrace 3+ + >180 WBCs and few bacteria MICRO/OTHER * 07/23/18 BCx (-) PHYSICAL EXAMINATION: GENERAL: VSS, NAD HEENT: AT, NC, anicteric, NECK: Supple, CHEST: Equal chest rise bilaterally, without dyspnea on observation HEART: Pulse RRR ABDOMEN: Soft / NT : EXTREMITIES: Warm, dry SKIN: No rash, no diaphoresis ID ASSESSMENT 78 yo F admit with: 1. Systemic inflammatory response syndrome => IMPROVING 2. Urinary tract infection as per urinalysis, possible retention 3. Status post diverticular resection secondary to diverticulitis 07/14/18 4. GERD/Hiatal Hernia 5. Rheumatoid arthritis, on chronic prednisone/MTX 6. Coronary artery disease (-)MRSA Nares ABX ALLERGIES: NONE to ABX INVASIVES: PIV CURRENT ABX: DAY # 3.5 Zosyn ID RECOMMENDATIONS/PLAN: 1. Improve mobility -- increase ambulation 2. Laxative on order and requested by patient 3. DC Zosyn 4. Fosfomycin x1 for concern UTI 5. Augmentin x 3 days 6. May DC with above recs when cleared by primary . Consultation Date/Type/Reason Admit Date/Time Jul 14, 2018 at 10:14 Initial Consult Date 07/22/18 Requesting Provider: TIM PORTILLO Date/Time of Note DATE: 07/27/18 TIME: 13:24 Exam/Review of Systems Exam Vitals Vital Signs Date Temp Pulse Resp B/P (MAP) Pulse Ox O2 O2 Flow FiO2 Time Delivery Rate 07/27/18 80 12:09 07/27/18 98.0 16 126/61 98 11:23 (82) 07/27/18 Room Air 08:18 Intake and Output 07/26/18 07/26/18 07/27/18 1515:00 23:00 07:00 IntakeIntake Total 1200 ml OutputOutput Total 4 ml BalanceBalance 1196 ml Results Result Diagram: 07/27/18 0455 07/27/18 0455 Results 24hrs Laboratory Tests Test 07/27/18 04:55 White Blood Count 13.1 H Red Blood Count 2.82 L Hemoglobin 8.5 L Hematocrit 27.0 L Mean Corpuscular Volume 95.7 Mean Corpuscular Hemoglobin 30.1 Mean Corpuscular Hemoglobin Concent 31.5 L Red Cell Distribution Width 17.0 H Platelet Count 509 H Mean Platelet Volume 10.1 Immature Granulocytes % 6.500 H Neutrophils % Segmented Neutrophils % (Manual) 67 Band Neutrophils % (Manual) 3 Lymphocytes % Lymphocytes % (Manual) 18 Monocytes % Monocytes % (Manual) 8 Eosinophils % Eosinophils % (Manual) 1 Basophils % Myelocytes % (Manual) 2 H Promyelocytes % (Manual) 1 H Nucleated Red Blood Cells % 0.0 Immature Granulocytes # 0.850 H Neutrophils # Neutrophils # (Manual) 8.8 H Band Neutrophils # 0.3 Lymphocytes (Manual) 2.3 Lymphocytes # Monocytes # Monocytes # (Manual) 1.0 H Eosinophils # Basophils # Myelocytes # 0.2 H Promyelocytes # 0.1 H Nucleated Red Blood Cells # Platelet Estimate INCREASED Giant Platelets 1 H Polychromasia 3+ Hypochromasia 1+ Poikilocytosis 1+ Anisocytosis 3+ Macrocytosis 3+ Target Cells 1+ Sodium Level 134 L Potassium Level 4.0 Chloride Level 100 Carbon Dioxide Level 26 Anion Gap 8 Blood Urea Nitrogen 9 Creatinine 0.70 Est Glomerular Filtrat Rate mL/min Glucose Level 99 Calcium Level 8.2 L Phosphorus Level 2.6 Magnesium Level 2.0 Medications Medication Current Medications Nalbuphine HCl (Nubain) 10 mg Q4H PRN IV .PRURITUS; Start 07/14/18 at 14:30 Ondansetron HCl (Zofran Inj) 4 mg Q6H PRN IV .NAUSEA/VOMITING Last administered on 07/25/18 01:15; Admin Dose 4 MG; Start 07/14/18 at 14:30 Naloxone HCl (Narcan) 0.2 mg Q2M PRN IV .RESP RATE; Start 07/14/18 at 14:30 Miscellaneous Information (* Miscellaneous Pharmacy Order) FENTANYL: 20 MCG SPI... GIVEN NEURAXIAL XX ; Start 07/14/18 at 14:30 Diphenhydramine HCl (Benadryl) 25 mg Q6H PRN IV ITCHING; Start 07/14/18 at 16:00 Pantoprazole (Protonix Tab) 40 mg DAILY@06 PO Last administered on 07/27/18 06:38; Admin Dose 40 MG; Start 07/15/18 at 06:00 Enoxaparin Sodium (Lovenox) 30 mg DAILY@07 SC Last administered on 07/27/18 06:48; Admin Dose 30 MG; Start 07/15/18 at 12:00 Bupropion HCl (Wellbutrin Sr) 150 mg DAILY PO Last administered on 07/27/18 08:23; Admin Dose 150 MG; Start 07/15/18 at 09:00 Cholecalciferol (Vitamin D) 1,000 unit DAILY PO Last administered on 07/27/18 08:22; Admin Dose 1,000 UNIT; Start 07/15/18 at 09:00 Cyanocobalamin (Vitamin B12) 1,500 mcg DAILY PO Last administered on 07/27/18 08:22; Admin Dose 1,500 MCG; Start 07/15/18 at 09:00 Escitalopram Oxalate (Lexapro) 10 mg DAILY PO Last administered on 07/27/18 08:23; Admin Dose 10 MG; Start 07/14/18 at 22:00 Levothyroxine Sodium (Synthroid) 75 mcg BEFORE BREAKFAST PO Last administered on 07/27/18 06:38; Admin Dose 75 MCG; Start 07/15/18 at 07:00 Loratadine (Claritin) 10 mg DAILY PO Last administered on 07/27/18 08:22; Admin Dose 10 MG; Start 07/15/18 at 09:00 Losartan Potassium (Cozaar) 50 mg DAILY PO Last administered on 07/27/18 08:21; Admin Dose 50 MG; Start 07/15/18 at 09:00 Niacin (Niacin) 500 mg BID PO Last administered on 07/27/18 08:21; Admin Dose 500 MG; Start 07/14/18 at 21:00 Oxycodone/ Acetaminophen (Percocet (5/ 325)) 1 tab Q4H PRN PO PAIN Last administered on 07/26/18 13:52; Admin Dose 1 TAB; Start 07/15/18 at 07:30 Prednisone (Prednisone) 5 mg DAILY PO Last administered on 07/27/18 08:21; Admin Dose 5 MG; Start 07/15/18 at 09:00 Prednisone (Prednisone) 3 mg DAILY PO Last administered on 07/27/18 08:22; Admin Dose 3 MG; Start 07/15/18 at 09:00 Ferrous Sulfate (Ferrous Sulfate (Ec)) 325 mg DAILY PO Last administered on 09:10; Admin Dose 325 MG; Start 07/18/18 at 09:00; Status Hold Phenol (Cepastat Lozenge) 1 lozenge Q1H PRN MT cough Last administered on 07/18/18 19:53; Admin Dose 1 LOZENGE; Start 07/17/18 at 17:30 Acetaminophen (Tylenol Tab) 650 mg Q6H PRN PO MILD PAIN(1-3)OR ELEVATED TEMP Last administered on 07/27/18 02:34; Admin Dose 650 MG; Start 07/18/18 at 06:00 Sucralfate (Carafate Susp) 1 gm QID PO Last administered on 07/27/18 12:20; Admin Dose 1 GM; Start 07/22/18 at 13:00 Metoclopramide HCl (Reglan) 10 mg Q6H PRN IV nausea/vomiting Last administered on 07/25/18 01:15; Admin Dose 10 MG; Start 07/22/18 at 17:30 Piperacillin Sod/ Tazobactam Sod 100 ml @ 200 mls/hr Q6 IVPB Last administered on 07/27/18 12:20; Admin Dose 200 MLS/HR; Start 07/24/18 at 12:00 Metoprolol Tartrate (Lopressor) 25 mg BID PO Last administered on 3/31/19at 06:39; Admin Dose 25 MG; Start 07/24/18 at 21:00 Magnesium Hydroxide (Milk Of Mag) 30 ml BID PRN PO CONSTIPATION Last administered on 07/24/18at 22:46; Admin Dose 30 ML; Start 07/24/18 at 22:30 Docusate Sodium (Colace) 100 mg BID PO Last administered on 07/27/18at 08:22; Admin Dose 100 MG; Start 07/25/18 at 09:30 Senna/Docusate Sodium (Senokot-S) 1 tab DAILY PRN PO constipation; Start 07/26/18 at 10:30 JUDY ZARATE NP Jul 27, 2018 13:34
[2018-07-27] MEDS ORDERED: FOSFOMYCIN 3 GM PACKET PO ONE (14:00)
[2018-07-27] MEDS ORDERED: MAGNESIUM HYDROXIDE 30ML CUP PO ONE (15:00)
--- NOTE | 2018-07-27 15:05 | PN ---
Date/Time of Note Date/Time of Note DATE: 07/27/18 TIME: 15:01 Assessment/Plan VTE Prophylaxis VTE Prophylaxis Intervention: LMWH Lines/Catheters IV Catheter Type (from [facility]): Moreno in Place (from [facility]): No Assessment/Plan Chief Complaint/Hosp Course POD #1 s/p diverticular resection on this 77 y/o White female w/ severe RA. Pt will return to her usual oral prednisone dose of 8 mg a day, after receiving perioperative IV steroids POD #2 Doing well, passing gas POD #10 Elevated wbx ( to 20,000 w/o chills or fever). Poor po till today. POD #11 Falling wbc on Zosyn, awaiting sensitivity. PO is improved POD #12 WBC is nearly normal on Zosyn. Eating well ( soft diet) POD #13 Doing well. PO ANTB. Assessment/Plan To start making arrangements for transfer to SNF tomorrow 1 dose of MOM Subjective 24 Hr Interval Summary Pt is looking well. Ambulating some, and w/o abdominal pain. Some smears of stool. Appetite is good. Oral antibiotics will start today Constitutional: no complaints, improved, flatus Feeding: baseline diet Pain Control: well controlled Exam/Review of Systems Vital Signs Vitals Vital Signs Date Temp Pulse Resp B/P (MAP) Pulse Ox O2 O2 Flow FiO2 Time Delivery Rate 07/27/18 80 12:09 07/27/18 98.0 16 126/61 98 11:23 (82) 07/27/18 Room Air 08:18 Intake and Output 07/26/18 07/26/18 07/27/18 1515:00 23:00 07:00 IntakeIntake Total 1200 ml OutputOutput Total 4 ml BalanceBalance 1196 ml Exam Constitutional: alert, oriented Psych: no complaints Cardiovascular: regular rate and rhythm Gastrointestinal: soft, non-tender, bowel sounds Results Result Diagram: 07/27/18 0455 07/27/18 0455 LUCI DIAZ MD Jul 27, 2018 15:04
--- NOTE | 2018-07-27 16:49 | CONS ---
Consult Date/Type/Reason Admit Date/Time Jul 14, 2018 at 10:14 Initial Consult Date 07/22/18 Requesting Provider: TIM PORTILLO Date/Time of Note DATE: 07/27/18 TIME: 16:44 Subjective cardiology follow up note S D/W staff and daughter tele reviewed no more SVT MAT no chest pain she feels much better today . breathing better. O General: no acute distress HEENT: NC/AT. pupils are equal. round. NECK: NO JVD. no stridor. CV: RRR. systolic murmur; no gallop or rubs. PULM: no wheezing or rhonchi. GI: SOFT, mild tenderness, ND, no rebound or guarding Extremity: trace B/L LE edema. no clubbing. neuro: awake and alert, OX3. Psych: calm and pleasant rectal: deferred : normal Objective Vitals Vital Signs Date Temp Pulse Resp B/P (MAP) Pulse Ox O2 O2 Flow FiO2 Time Delivery Rate 07/27/18 97.9 73 16 118/61 99 15:44 (80) 07/27/18 Room Air 08:18 Intake and Output 07/26/18 07/26/18 07/27/18 1515:00 23:00 07:00 IntakeIntake Total 1200 ml OutputOutput Total 4 ml BalanceBalance 1196 ml Results/Medications Result Diagram: 07/27/18 0455 07/27/18 0455 Results 24 hrs Laboratory Tests Test 07/27/18 04:55 White Blood Count 13.1 H Red Blood Count 2.82 L Hemoglobin 8.5 L Hematocrit 27.0 L Mean Corpuscular Volume 95.7 Mean Corpuscular Hemoglobin 30.1 Mean Corpuscular Hemoglobin Concent 31.5 L Red Cell Distribution Width 17.0 H Platelet Count 509 H Mean Platelet Volume 10.1 Immature Granulocytes % 6.500 H Neutrophils % Segmented Neutrophils % (Manual) 67 Band Neutrophils % (Manual) 3 Lymphocytes % Lymphocytes % (Manual) 18 Monocytes % Monocytes % (Manual) 8 Eosinophils % Eosinophils % (Manual) 1 Basophils % Myelocytes % (Manual) 2 H Promyelocytes % (Manual) 1 H Nucleated Red Blood Cells % 0.0 Immature Granulocytes # 0.850 H Neutrophils # Neutrophils # (Manual) 8.8 H Band Neutrophils # 0.3 Lymphocytes (Manual) 2.3 Lymphocytes # Monocytes # Monocytes # (Manual) 1.0 H Eosinophils # Basophils # Myelocytes # 0.2 H Promyelocytes # 0.1 H Nucleated Red Blood Cells # Platelet Estimate INCREASED Giant Platelets 1 H Polychromasia 3+ Hypochromasia 1+ Poikilocytosis 1+ Anisocytosis 3+ Macrocytosis 3+ Target Cells 1+ Sodium Level 134 L Potassium Level 4.0 Chloride Level 100 Carbon Dioxide Level 26 Anion Gap 8 Blood Urea Nitrogen 9 Creatinine 0.70 Est Glomerular Filtrat Rate mL/min Glucose Level 99 Calcium Level 8.2 L Phosphorus Level 2.6 Magnesium Level 2.0 Home Meds Reported Medications Loratadine* (Loratadine*) 10 Mg Tablet, 10 MG PO DAILY, #30 TAB 07/14/18 Sennosides* (Senna Lax*) 8.6 Mg Tablet, 1 TAB PO BID, TAB 07/14/18 Cyanocobalamin* (Vitamin B12*) 500 Mcg Tab, 1500 MCG PO DAILY, TAB 07/14/18 Niacin* (Niacin*) 500 Mg Tablet, 500 MG PO BID, TAB 07/14/18 Cholecalciferol* (Vitamin D3*) 1,000 Unit Tablet, 1000 UNIT PO DAILY, TAB 07/14/18 Acetaminophen* (Acetaminophen*) 650 Mg Tablet, 650 MG PO DAILY PRN for PAIN, #30 TAB 07/14/18 Methotrexate* (Methotrexate*) 2.5 Mg Tab, 7.5 MG PO EVERY SATURDAY, TAB 07/14/18 Hydroxychloroquine Sulfate* (Plaquenil*) 200 Mg Tab, 300 MG PO DAILY, TAB 07/14/18 Prednisone* (Prednisone*) 1 Mg Tablet, 8 MG PO DAILY, TAB 07/14/18 Lactulose* (Lactulose*) 10 Gm/15 Ml Solution, 20 GM PO DAILY PRN for CONSTIPATION, ML 07/11/18 Escitalopram Oxalate* (Lexapro*) 10 Mg Tablet, 10 MG PO DAILY, #30 TAB 07/11/18 Omeprazole* (Omeprazole*) 40 Mg Capsule.dr, 40 MG PO DAILY, #30 CAP 07/11/18 Bupropion Hcl* (Wellbutrin SR*) 150 Mg Tablet.sa, 150 MG PO DAILY, TAB.SA 07/11/18 Levothyroxine Sodium* (Levothyroxine Sodium*) 75 Mcg Tablet, 75 MCG PO BEFORE BREAKFAST, #30 TAB 07/11/18 Losartan Potassium* (Losartan Potassium*) 50 Mg Tablet, 50 MG PO DAILY, TAB 07/11/18 Medications Current Medications Nalbuphine HCl (Nubain) 10 mg Q4H PRN IV .PRURITUS; Start 07/14/18 at 14:30 Ondansetron HCl (Zofran Inj) 4 mg Q6H PRN IV .NAUSEA/VOMITING Last administered on 07/25/18 01:15; Admin Dose 4 MG; Start 07/14/18 at 14:30 Naloxone HCl (Narcan) 0.2 mg Q2M PRN IV .RESP RATE; Start 07/14/18 at 14:30 Miscellaneous Information (* Miscellaneous Pharmacy Order) FENTANYL: 20 MCG SPI... GIVEN NEURAXIAL XX ; Start 07/14/18 at 14:30 Diphenhydramine HCl (Benadryl) 25 mg Q6H PRN IV ITCHING; Start 07/14/18 at 16:00 Pantoprazole (Protonix Tab) 40 mg DAILY@06 PO Last administered on 07/27/18 06:38; Admin Dose 40 MG; Start 07/15/18 at 06:00 Enoxaparin Sodium (Lovenox) 30 mg DAILY@07 SC Last administered on 07/27/18 06:48; Admin Dose 30 MG; Start 07/15/18 at 12:00 Bupropion HCl (Wellbutrin Sr) 150 mg DAILY PO Last administered on 07/27/18 08:23; Admin Dose 150 MG; Start 07/15/18 at 09:00 Cholecalciferol (Vitamin D) 1,000 unit DAILY PO Last administered on 07/27/18 08:22; Admin Dose 1,000 UNIT; Start 07/15/18 at 09:00 Cyanocobalamin (Vitamin B12) 1,500 mcg DAILY PO Last administered on 07/27/18 08:22; Admin Dose 1,500 MCG; Start 07/15/18 at 09:00 Escitalopram Oxalate (Lexapro) 10 mg DAILY PO Last administered on 07/27/18 08:23; Admin Dose 10 MG; Start 07/14/18 at 22:00 Levothyroxine Sodium (Synthroid) 75 mcg BEFORE BREAKFAST PO Last administered on 07/27/18 06:38; Admin Dose 75 MCG; Start 07/15/18 at 07:00 Loratadine (Claritin) 10 mg DAILY PO Last administered on 07/27/18 08:22; Admin Dose 10 MG; Start 07/15/18 at 09:00 Losartan Potassium (Cozaar) 50 mg DAILY PO Last administered on 07/27/18 08:21; Admin Dose 50 MG; Start 07/15/18 at 09:00 Niacin (Niacin) 500 mg BID PO Last administered on 07/27/18 08:21; Admin Dose 500 MG; Start 07/14/18 at 21:00 Oxycodone/ Acetaminophen (Percocet (5/ 325)) 1 tab Q4H PRN PO PAIN Last administered on 07/26/18 13:52; Admin Dose 1 TAB; Start 07/15/18 at 07:30 Prednisone (Prednisone) 5 mg DAILY PO Last administered on 07/27/18 08:21; Admin Dose 5 MG; Start 07/15/18 at 09:00 Prednisone (Prednisone) 3 mg DAILY PO Last administered on 07/27/18 08:22; Admin Dose 3 MG; Start 07/15/18 at 09:00 Ferrous Sulfate (Ferrous Sulfate (Ec)) 325 mg DAILY PO Last administered on 07/18/18 09:10; Admin Dose 325 MG; Start 07/18/18 at 09:00; Status Hold Phenol (Cepastat Lozenge) 1 lozenge Q1H PRN MT cough Last administered on 07/18/18 19:53; Admin Dose 1 LOZENGE; Start 07/17/18 at 17:30 Acetaminophen (Tylenol Tab) 650 mg Q6H PRN PO MILD PAIN(1-3)OR ELEVATED TEMP Last administered on 07/27/18 02:34; Admin Dose 650 MG; Start 07/18/18 at 06:00 Sucralfate (Carafate Susp) 1 gm QID PO Last administered on 07/27/18 16:28; Admin Dose 1 GM; Start 07/22/18 at 13:00 Metoclopramide HCl (Reglan) 10 mg Q6H PRN IV nausea/vomiting Last administered on 07/25/18 01:15; Admin Dose 10 MG; Start 07/22/18 at 17:30 Metoprolol Tartrate (Lopressor) 25 mg BID PO Last administered on 07/27/18at 06:39; Admin Dose 25 MG; Start 07/24/18 at 21:00 Magnesium Hydroxide (Milk Of Mag) 30 ml BID PRN PO CONSTIPATION Last administered on 07/24/18at 22:46; Admin Dose 30 ML; Start 07/24/18 at 22:30 Docusate Sodium (Colace) 100 mg BID PO Last administered on 07/27/18at 08:22; Admin Dose 100 MG; Start 07/25/18 at 09:30 Senna/Docusate Sodium (Senokot-S) 1 tab DAILY PRN PO constipation; Start 07/26/18 at 10:30 Amoxicillin/ Clavulanate Potassium (Augmentin) 875 mg BID PO ; Start 07/27/18 at 21:00; Stop 07/31/18 at 20:59 Assessment/Plan Hospital Course (Demo Recall) Multifocal atrial tachycardia: improved now Status post abdominal surgery Hypertension anemia REC: -CONT tele -Maintain potassium above 4.0 and magnesium above 2.0 -Continue beta-melchor as tolerated post op care as per surgery Thank you for his referral. We will continue to follow along with you until Dr. Hill/Mamadou return on Saturday DEREK BRUCE MD [facility] DEREK BRUCE MD Jul 27, 2018 16:48
[2018-07-27] MEDS: AMOXICILLIN/CLAV 875 MG TAB PO SCH (20:12)
[2018-07-28] VITALS (11 sets, daily range): BP systolic 111–145; BP diastolic 55–72; PULSE 64–77; RESP 16–18
[2018-07-28] MEDS: ACETAMINOPHEN 325 MG TAB PO PRN (04:43)
[2018-07-28] MEDS: LEVOTHYROXINE 75 MCG TAB PO SCH (06:15)
[2018-07-28] MEDS: PANTOPRAZOLE (EC) 40 MG TAB PO SCH (06:16)
[2018-07-28] MEDS: ENOXAPARIN 30 MG/0.3 ML SYG SC SCH (06:22)
[2018-07-28] MEDS: NIACIN 500 MG TAB PO SCH ×2 (08:42→20:29)
[2018-07-28] MEDS: AMOXICILLIN/CLAV 875 MG TAB PO SCH ×2 (08:44→20:29)
[2018-07-28] MEDS: BUPROPION (SR) 150 MG TAB PO SCH (08:44)
[2018-07-28] MEDS: METOPROLOL 25 MG TAB PO SCH ×2 (08:44→20:29)
[2018-07-28] MEDS: predniSONE 1 MG TAB PO SCH (08:44)
[2018-07-28] MEDS: predniSONE 5 MG TAB PO SCH (08:44)
[2018-07-28] MEDS: CYANOCOBALAMIN 500 MCG TAB PO SCH (08:44)
[2018-07-28] MEDS: ESCITALOPRAM 10 MG TAB PO SCH (08:45)
[2018-07-28] MEDS: SUCRALFATE (100 MG/ML) 10ML CUP PO SCH ×4 (08:45→20:30)
[2018-07-28] MEDS: LOSARTAN 50 MG TAB PO SCH (08:45)
[2018-07-28] MEDS: LORATADINE 10 MG TAB PO SCH (08:45)
[2018-07-28] MEDS: CHOLECALCIFEROL 1,000 UNIT TAB PO SCH (08:45)
[2018-07-28] MEDS: DOCUSATE SODIUM 100 MG CAP PO SCH ×2 (09:00→20:29)
--- NOTE | 2018-07-28 09:28 | PN ---
Date/Time of Note Date/Time of Note DATE: 07/28/18 TIME: 09:28 Assessment/Plan VTE Prophylaxis Risk score (from Ns)>0 risk: 7 SCD applied (from Ns): Yes Pharmacological prophylaxis: NA/contraindicated Pharm contraindication: anticoag not tolerated Lines/Catheters IV Catheter Type (from Nrsg): Saline Lock Urinary Cath still in place: No Assessment/Plan Assessment/Plan 1. Nausea with vomiting, resolved - patient tolerating diet and had BM. Abdominal pain controlled and denies any further N/V episodes - Small bowel follow-through does not show obstruction - Carafate to help for hiatal hernia causing some of this nausea. 2. Iron deficiency anemia - Counseled about importance of taking iron supplements. Also encouraged to eat more foods rich in iron - no need for further transfusions. H/H remains stable 3. Multifocal atrial tachycardia - Cardiology on board and appreciate recommendations - no further episodes 4. UTI - Most likely given on immunosuppressants - ID on board and appreciate recommendations. Continue short course of Augmentin until 07/31 5. Rheumatoid arthritis- stable - continue on Prednisone 8mg daily. - continue methotrexate as usual when able to tolerate p.o. better - Tylenol PRN for joint discomfort 6. Acute sigmoid diverticulitis with stricture s/p lap sigmoid resection - Gen surgery on board for postop management 7. Bullous Pemphigoid - continue steroids at this time - resume Plaquenil upon discharge 8. HTN - stable - continue home medication 9. Depression- stable - continue on Wellbutrin and Lexapro 10. Hypothyroidism - on levothyroxine 11. Allergic rhinitis - continue home Claritin dose when tolerating 12. h/o hydrocephalus s/p shunt and brain mass - stable 13. R hearing loss - h/o schwannoma 14. GERD with hiatal hernia - PPI 15. Disposition - Agreeable to SNF placement and preauth pending Result Diagram: 07/28/18 0551 07/28/18 0551 Results 24hrs Laboratory Tests Test 07/28/18 05:51 White Blood Count 11.9 H Red Blood Count 3.00 L Hemoglobin 9.1 L Hematocrit 28.9 L Mean Corpuscular Volume 96.3 Mean Corpuscular Hemoglobin 30.3 Mean Corpuscular Hemoglobin Concent 31.5 L Red Cell Distribution Width 17.2 H Platelet Count 525 H Mean Platelet Volume 9.6 Immature Granulocytes % 5.400 H Neutrophils % Segmented Neutrophils % (Manual) 69 Band Neutrophils % (Manual) 3 Lymphocytes % Lymphocytes % (Manual) 18 Monocytes % Monocytes % (Manual) 5 Eosinophils % Eosinophils % (Manual) 1 Basophils % Metamyelocytes % (manual) 1 H Myelocytes % (Manual) 3 H Nucleated Red Blood Cells % 0.0 Immature Granulocytes # 0.650 H Neutrophils # Neutrophils # (Manual) 8.2 H Band Neutrophils # 0.3 Lymphocytes (Manual) 2.1 Lymphocytes # Monocytes # Monocytes # (Manual) 0.5 Eosinophils # Basophils # Metamyelocytes # 0.1 H Myelocytes # 0.3 H Nucleated Red Blood Cells # Platelet Estimate INCREASED Polychromasia 1+ Anisocytosis 1+ Macrocytosis 1+ Ovalocytes 1+ Sodium Level 133 L Potassium Level 4.3 Chloride Level 96 L Carbon Dioxide Level 31 Anion Gap 6 Blood Urea Nitrogen 9 Creatinine 0.65 Est Glomerular Filtrat Rate mL/min Glucose Level 97 Calcium Level 8.8 Phosphorus Level 2.7 Magnesium Level 1.8 Subjective 24 Hr Interval Summary Free Text/Dictation Patient states she feeling better and pain finally diminished. She had BM yesterday without any issues. Still agreeable to SNF. Exam/Review of Systems Exam Vitals Vital Signs Date Temp Pulse Resp B/P (MAP) Pulse Ox O2 O2 Flow FiO2 Time Delivery Rate 07/28/18 98.0 77 18 145/65 100 Room Air 07:44 (91) Intake and Output 07/27/18 07/27/18 07/28/18 1515:00 23:00 07:00 IntakeIntake Total 400 ml 1200 ml 500 ml OutputOutput Total 4 ml BalanceBalance 396 ml 1200 ml 500 ml Exam General: Patient is laying in bed and answers questions appropriately Neck: Supple, nontender, midline Respiratory: Clear to auscultation bilaterally. no wheezing or rhonchi Cardiovascular: regular rate and rhythm, no obvious murmurs Gastrointestinal: soft, nontender to palpation, bowel sounds heard. Neurological: Moves all extremities spontaneously Skin: No new skin lesions Results Results 24hrs Laboratory Tests Test 07/28/18 05:51 White Blood Count 11.9 H Red Blood Count 3.00 L Hemoglobin 9.1 L Hematocrit 28.9 L Mean Corpuscular Volume 96.3 Mean Corpuscular Hemoglobin 30.3 Mean Corpuscular Hemoglobin Concent 31.5 L Red Cell Distribution Width 17.2 H Platelet Count 525 H Mean Platelet Volume 9.6 Immature Granulocytes % 5.400 H Neutrophils % Segmented Neutrophils % (Manual) 69 Band Neutrophils % (Manual) 3 Lymphocytes % Lymphocytes % (Manual) 18 Monocytes % Monocytes % (Manual) 5 Eosinophils % Eosinophils % (Manual) 1 Basophils % Metamyelocytes % (manual) 1 H Myelocytes % (Manual) 3 H Nucleated Red Blood Cells % 0.0 Immature Granulocytes # 0.650 H Neutrophils # Neutrophils # (Manual) 8.2 H Band Neutrophils # 0.3 Lymphocytes (Manual) 2.1 Lymphocytes # Monocytes # Monocytes # (Manual) 0.5 Eosinophils # Basophils # Metamyelocytes # 0.1 H Myelocytes # 0.3 H Nucleated Red Blood Cells # Platelet Estimate INCREASED Polychromasia 1+ Anisocytosis 1+ Macrocytosis 1+ Ovalocytes 1+ Sodium Level 133 L Potassium Level 4.3 Chloride Level 96 L Carbon Dioxide Level 31 Anion Gap 6 Blood Urea Nitrogen 9 Creatinine 0.65 Est Glomerular Filtrat Rate mL/min Glucose Level 97 Calcium Level 8.8 Phosphorus Level 2.7 Magnesium Level 1.8 Medications Medication Current Medications Nalbuphine HCl (Nubain) 10 mg Q4H PRN IV .PRURITUS; Start 07/14/18 at 14:30 Ondansetron HCl (Zofran Inj) 4 mg Q6H PRN IV .NAUSEA/VOMITING Last administered on 07/25/18at 01:15; Admin Dose 4 MG; Start 07/14/18 at 14:30 Naloxone HCl (Narcan) 0.2 mg Q2M PRN IV .RESP RATE; Start 07/14/18 at 14:30 Miscellaneous Information (* Miscellaneous Pharmacy Order) FENTANYL: 20 MCG SPI... GIVEN NEURAXIAL XX ; Start 07/14/18 at 14:30 Diphenhydramine HCl (Benadryl) 25 mg Q6H PRN IV ITCHING; Start 07/14/18 at 16:00 Pantoprazole (Protonix Tab) 40 mg DAILY@06 PO Last administered on 07/28/18at 06:16; Admin Dose 40 MG; Start 07/15/18 at 06:00 Enoxaparin Sodium (Lovenox) 30 mg DAILY@07 SC Last administered on 07/28/18at 06:22; Admin Dose 30 MG; Start 07/15/18 at 12:00 Bupropion HCl (Wellbutrin Sr) 150 mg DAILY PO Last administered on 07/28/18 08:44; Admin Dose 150 MG; Start 07/15/18 at 09:00 Cholecalciferol (Vitamin D) 1,000 unit DAILY PO Last administered on 07/28/18 08:45; Admin Dose 1,000 UNIT; Start 07/15/18 at 09:00 Cyanocobalamin (Vitamin B12) 1,500 mcg DAILY PO Last administered on 07/28/18 08:44; Admin Dose 1,500 MCG; Start 07/15/18 at 09:00 Escitalopram Oxalate (Lexapro) 10 mg DAILY PO Last administered on 07/28/18 08:45; Admin Dose 10 MG; Start 07/14/18 at 22:00 Levothyroxine Sodium (Synthroid) 75 mcg BEFORE BREAKFAST PO Last administered on 07/28/18 06:15; Admin Dose 75 MCG; Start 07/15/18 at 07:00 Loratadine (Claritin) 10 mg DAILY PO Last administered on 07/28/18 08:45; Admin Dose 10 MG; Start 07/15/18 at 09:00 Losartan Potassium (Cozaar) 50 mg DAILY PO Last administered on 07/28/18 08:45; Admin Dose 50 MG; Start 07/15/18 at 09:00 Niacin (Niacin) 500 mg BID PO Last administered on 07/28/18 08:42; Admin Dose 500 MG; Start 07/14/18 at 21:00 Oxycodone/ Acetaminophen (Percocet (5/ 325)) 1 tab Q4H PRN PO PAIN Last administered on 07/26/18 13:52; Admin Dose 1 TAB; Start 07/15/18 at 07:30 Prednisone (Prednisone) 5 mg DAILY PO Last administered on 07/28/18 08:44; Admin Dose 5 MG; Start 07/15/18 at 09:00 Prednisone (Prednisone) 3 mg DAILY PO Last administered on 07/28/18 08:44; Admin Dose 3 MG; Start 07/15/18 at 09:00 Ferrous Sulfate (Ferrous Sulfate (Ec)) 325 mg DAILY PO Last administered on 07/18/18 09:10; Admin Dose 325 MG; Start 07/18/18 at 09:00; Status Hold Phenol (Cepastat Lozenge) 1 lozenge Q1H PRN MT cough Last administered on 07/18/18 19:53; Admin Dose 1 LOZENGE; Start 07/17/18 at 17:30 Acetaminophen (Tylenol Tab) 650 mg Q6H PRN PO MILD PAIN(1-3)OR ELEVATED TEMP Last administered on 07/28/18 04:43; Admin Dose 650 MG; Start 07/18/18 at 06:00 Sucralfate (Carafate Susp) 1 gm QID PO Last administered on 07/28/18 08:45; Admin Dose 1 GM; Start 07/22/18 at 13:00 Metoclopramide HCl (Reglan) 10 mg Q6H PRN IV nausea/vomiting Last administered on 07/25/18 01:15; Admin Dose 10 MG; Start 07/22/18 at 17:30 Metoprolol Tartrate (Lopressor) 25 mg BID PO Last administered on 07/28/18 08:44; Admin Dose 25 MG; Start 07/24/18 at 21:00 Magnesium Hydroxide (Milk Of Mag) 30 ml BID PRN PO CONSTIPATION Last administered on 07/24/18 22:46; Admin Dose 30 ML; Start 07/24/18 at 22:30 Docusate Sodium (Colace) 100 mg BID PO Last administered on 07/27/18 20:12; Admin Dose 100 MG; Start 07/25/18 at 09:30 Senna/Docusate Sodium (Senokot-S) 1 tab DAILY PRN PO constipation; Start 07/26/18 at 10:30 Amoxicillin/ Clavulanate Potassium (Augmentin) 875 mg BID PO Last administered on 07/28/18 08:44; Admin Dose 875 MG; Start 07/27/18 at 21:00; Stop 07/31/18 at 20:59 FATUMA KEARNS MD Jul 28, 2018 09:28
[2018-07-28] MEDS ORDERED: MAGNESIUM SULFATE 2 GM/50 ML 50 ML IVPB ONE (10:30)
--- NOTE | 2018-07-28 14:21 | CONS ---
Assessment/Plan Assessment/Plan Hospital Course (Demo Recall) Alert, feels good, no fevers Antimicrobials: Augmentin Physical examination: Well-nourished fragile obese elderly woman who is alert in no distress. Head atraumatic normocephalic sclera nonicteric. Neck is supple chest rise symmetrical breath sounds diminished bases. Heart: S1-S2. Abdomen obese, soft bowel sounds present. Extremities without cyanosis. Assessment: 1. Systemic inflammatory response syndrome 2. Urinary tract infection as per urinalysis, possible retention 3. Status post diverticular resection secondary to diverticulitis 07/14/18 4. Coronary artery disease 5. Rheumatoid arthritis, on chronic prednisone Plan: Remains stable, continue present care, abx for couple more days, PT, surgical rec-s Consultation Date/Type/Reason Admit Date/Time Jul 14, 2018 at 10:14 Initial Consult Date 07/22/18 Type of Consult id Requesting Provider: TIM PORTILLO Date/Time of Note DATE: 07/28/18 TIME: 14:19 Exam/Review of Systems Exam Vitals Vital Signs Date Temp Pulse Resp B/P (MAP) Pulse Ox O2 O2 Flow FiO2 Time Delivery Rate 07/28/18 77 12:00 07/28/18 91.8 18 118/59 100 Room Air 11:30 (78) Intake and Output 07/27/18 07/27/18 07/28/18 1515:00 23:00 07:00 IntakeIntake Total 400 ml 1200 ml 500 ml OutputOutput Total 4 ml BalanceBalance 396 ml 1200 ml 500 ml Results Result Diagram: 07/28/18 0551 07/28/18 0551 Results 24hrs Laboratory Tests Test 07/28/18 05:51 White Blood Count 11.9 H Red Blood Count 3.00 L Hemoglobin 9.1 L Hematocrit 28.9 L Mean Corpuscular Volume 96.3 Mean Corpuscular Hemoglobin 30.3 Mean Corpuscular Hemoglobin Concent 31.5 L Red Cell Distribution Width 17.2 H Platelet Count 525 H Mean Platelet Volume 9.6 Immature Granulocytes % 5.400 H Neutrophils % Segmented Neutrophils % (Manual) 69 Band Neutrophils % (Manual) 3 Lymphocytes % Lymphocytes % (Manual) 18 Monocytes % Monocytes % (Manual) 5 Eosinophils % Eosinophils % (Manual) 1 Basophils % Metamyelocytes % (manual) 1 H Myelocytes % (Manual) 3 H Nucleated Red Blood Cells % 0.0 Immature Granulocytes # 0.650 H Neutrophils # Neutrophils # (Manual) 8.2 H Band Neutrophils # 0.3 Lymphocytes (Manual) 2.1 Lymphocytes # Monocytes # Monocytes # (Manual) 0.5 Eosinophils # Basophils # Metamyelocytes # 0.1 H Myelocytes # 0.3 H Nucleated Red Blood Cells # Platelet Estimate INCREASED Polychromasia 1+ Anisocytosis 1+ Macrocytosis 1+ Ovalocytes 1+ Sodium Level 133 L Potassium Level 4.3 Chloride Level 96 L Carbon Dioxide Level 31 Anion Gap 6 Blood Urea Nitrogen 9 Creatinine 0.65 Est Glomerular Filtrat Rate mL/min Glucose Level 97 Calcium Level 8.8 Phosphorus Level 2.7 Magnesium Level 1.8 Medications Medication Current Medications Nalbuphine HCl (Nubain) 10 mg Q4H PRN IV .PRURITUS; Start 07/14/18 at 14:30 Ondansetron HCl (Zofran Inj) 4 mg Q6H PRN IV .NAUSEA/VOMITING Last administered on 07/25/18 01:15; Admin Dose 4 MG; Start 07/14/18 at 14:30 Naloxone HCl (Narcan) 0.2 mg Q2M PRN IV .RESP RATE; Start 07/14/18 at 14:30 Miscellaneous Information (* Miscellaneous Pharmacy Order) FENTANYL: 20 MCG SPI... GIVEN NEURAXIAL XX ; Start 07/14/18 at 14:30 Diphenhydramine HCl (Benadryl) 25 mg Q6H PRN IV ITCHING; Start 07/14/18 at 16:00 Pantoprazole (Protonix Tab) 40 mg DAILY@06 PO Last administered on 07/28/18at 06:16; Admin Dose 40 MG; Start 07/15/18 at 06:00 Enoxaparin Sodium (Lovenox) 30 mg DAILY@07 SC Last administered on 07/28/18 06:22; Admin Dose 30 MG; Start 07/15/18 at 12:00 Bupropion HCl (Wellbutrin Sr) 150 mg DAILY PO Last administered on 07/28/18 08:44; Admin Dose 150 MG; Start 07/15/18 at 09:00 Cholecalciferol (Vitamin D) 1,000 unit DAILY PO Last administered on 07/28/18 08:45; Admin Dose 1,000 UNIT; Start 07/15/18 at 09:00 Cyanocobalamin (Vitamin B12) 1,500 mcg DAILY PO Last administered on 07/28/18 08:44; Admin Dose 1,500 MCG; Start 07/15/18 at 09:00 Escitalopram Oxalate (Lexapro) 10 mg DAILY PO Last administered on 07/28/18 08:45; Admin Dose 10 MG; Start 07/14/18 at 22:00 Levothyroxine Sodium (Synthroid) 75 mcg BEFORE BREAKFAST PO Last administered on 07/28/18 06:15; Admin Dose 75 MCG; Start 07/15/18 at 07:00 Loratadine (Claritin) 10 mg DAILY PO Last administered on 07/28/18 08:45; Admin Dose 10 MG; Start 07/15/18 at 09:00 Losartan Potassium (Cozaar) 50 mg DAILY PO Last administered on 07/28/18 08:45; Admin Dose 50 MG; Start 07/15/18 at 09:00 Niacin (Niacin) 500 mg BID PO Last administered on 07/28/18 08:42; Admin Dose 500 MG; Start 07/14/18 at 21:00 Oxycodone/ Acetaminophen (Percocet (5/ 325)) 1 tab Q4H PRN PO PAIN Last administered on 07/26/18 13:52; Admin Dose 1 TAB; Start 07/15/18 at 07:30 Prednisone (Prednisone) 5 mg DAILY PO Last administered on 07/28/18 08:44; Admin Dose 5 MG; Start 07/15/18 at 09:00 Prednisone (Prednisone) 3 mg DAILY PO Last administered on 07/28/18 08:44; Admin Dose 3 MG; Start 07/15/18 at 09:00 Ferrous Sulfate (Ferrous Sulfate (Ec)) 325 mg DAILY PO Last administered on 07/18/18 09:10; Admin Dose 325 MG; Start 07/18/18 at 09:00; Status Hold Phenol (Cepastat Lozenge) 1 lozenge Q1H PRN MT cough Last administered on 07/18/18 19:53; Admin Dose 1 LOZENGE; Start 07/17/18 at 17:30 Acetaminophen (Tylenol Tab) 650 mg Q6H PRN PO MILD PAIN(1-3)OR ELEVATED TEMP Last administered on 07/28/18 04:43; Admin Dose 650 MG; Start 07/18/18 at 06:00 Sucralfate (Carafate Susp) 1 gm QID PO Last administered on 07/28/18 13:01; Admin Dose 1 GM; Start 07/22/18 at 13:00 Metoclopramide HCl (Reglan) 10 mg Q6H PRN IV nausea/vomiting Last administered on 07/25/18 01:15; Admin Dose 10 MG; Start 07/22/18 at 17:30 Metoprolol Tartrate (Lopressor) 25 mg BID PO Last administered on 07/28/18 08:44; Admin Dose 25 MG; Start 07/24/18 at 21:00 Magnesium Hydroxide (Milk Of Mag) 30 ml BID PRN PO CONSTIPATION Last administered on 07/24/18 22:46; Admin Dose 30 ML; Start 07/24/18 at 22:30 Docusate Sodium (Colace) 100 mg BID PO Last administered on 07/27/18 20:12; Admin Dose 100 MG; Start 07/25/18 at 09:30 Senna/Docusate Sodium (Senokot-S) 1 tab DAILY PRN PO constipation; Start 07/26/18 at 10:30 Amoxicillin/ Clavulanate Potassium (Augmentin) 875 mg BID PO Last administered on 07/28/18 08:44; Admin Dose 875 MG; Start 07/27/18 at 21:00; Stop 07/31/18 at 20:59 HOLA LANDEROS NP Jul 28, 2018 14:21
[2018-07-29] VITALS: BP 108/68; PULSE 66; PULSE 71; RESP 16
[2018-07-29 04:00] VITALS: BP 132/68; PULSE 69; PULSE 83; RESP 16
[2018-07-29] MEDS: LEVOTHYROXINE 75 MCG TAB PO SCH (06:12)
[2018-07-29] MEDS: PANTOPRAZOLE (EC) 40 MG TAB PO SCH (06:12)
[2018-07-29] MEDS: ENOXAPARIN 30 MG/0.3 ML SYG SC SCH (06:44)
[2018-07-29 07:22] VITALS: BP 112/57; PULSE 69; RESP 20
[2018-07-29] MEDS: SUCRALFATE (100 MG/ML) 10ML CUP PO SCH ×2 (07:36→12:23)
[2018-07-29 08:09] VITALS: PULSE 73
[2018-07-29] MEDS: CYANOCOBALAMIN 500 MCG TAB PO SCH (08:22)
[2018-07-29] MEDS: CHOLECALCIFEROL 1,000 UNIT TAB PO SCH (08:22)
[2018-07-29] MEDS: ESCITALOPRAM 10 MG TAB PO SCH (08:22)
[2018-07-29] MEDS: AMOXICILLIN/CLAV 875 MG TAB PO SCH (08:23)
[2018-07-29] MEDS: LORATADINE 10 MG TAB PO SCH (08:23)
[2018-07-29] MEDS: METOPROLOL 25 MG TAB PO SCH (08:23)
[2018-07-29] MEDS: NIACIN 500 MG TAB PO SCH (08:24)
[2018-07-29] MEDS: DOCUSATE SODIUM 100 MG CAP PO SCH (08:24)
[2018-07-29] MEDS: BUPROPION (SR) 150 MG TAB PO SCH (08:25)
[2018-07-29] MEDS: LOSARTAN 50 MG TAB PO SCH (08:25)
[2018-07-29] MEDS: predniSONE 5 MG TAB PO SCH (08:35)
[2018-07-29] MEDS: predniSONE 1 MG TAB PO SCH (08:40)
--- NOTE | 2018-07-29 08:45 | PN ---
Date/Time of Note Date/Time of Note DATE: 07/29/18 TIME: 08:45 Assessment/Plan VTE Prophylaxis Risk score (from Nsg)>0 risk: 5 SCD applied (from Ns): Yes Pharmacological prophylaxis: NA/contraindicated Pharm contraindication: anticoag not tolerated Lines/Catheters IV Catheter Type (from Nrsg): Saline Lock Urinary Cath still in place: No Assessment/Plan Assessment/Plan 1. Nausea with vomiting, resolved - Patients tolerating diet with no abdominal discomfort. Denies any nausea or vomiting - Carafate to help for hiatal hernia causing some of this nausea. 2. Iron deficiency anemia - Counseled about importance of taking iron supplements. Also encouraged to eat more foods rich in iron - no need for further transfusions. H/H remains stable 3. Multifocal atrial tachycardia - Cardiology on board and appreciate recommendations - no further episodes 4. UTI - Most likely given on immunosuppressants - ID on board and appreciate recommendations. Continue short course of Augmentin until 07/31 5. Rheumatoid arthritis- stable - continue on Prednisone 8mg daily. - continue methotrexate as usual - Tylenol PRN for joint discomfort 6. Acute sigmoid diverticulitis with stricture s/p lap sigmoid resection - Gen surgery on board for postop management 7. Bullous Pemphigoid - continue steroids at this time - resume Plaquenil upon discharge 8. HTN - stable - continue home medication 9. Depression- stable - continue on Wellbutrin and Lexapro 10. Hypothyroidism - on levothyroxine 11. Allergic rhinitis - continue home Claritin dose when tolerating 12. h/o hydrocephalus s/p shunt and brain mass - stable 13. R hearing loss - h/o schwannoma 14. GERD with hiatal hernia - PPI 15. Disposition - Medically stable for discharge to SNF. Result Diagram: 07/28/18 0551 07/28/18 0551 Results 24hrs Laboratory Tests Test 07/29/18 05:04 Prealbumin 15.8 L Subjective 24 Hr Interval Summary Free Text/Dictation Patient denies any acute issues and no overnight events noted. Patient denies any worsening pain and tolerating PO intake. Exam/Review of Systems Exam Vitals Vital Signs Date Temp Pulse Resp B/P (MAP) Pulse Ox O2 O2 Flow FiO2 Time Delivery Rate 07/29/18 73 08:09 07/29/18 97.9 20 112/57 97 Room Air 07:22 (75) Intake and Output 07/28/18 07/28/18 07/29/18 1515:00 23:00 07:00 IntakeIntake Total 860 ml 400 ml BalanceBalance 860 ml 400 ml Exam General: Patient in bedside chair. no acute distress Neck: Supple, nontender, midline Respiratory: Clear to auscultation bilaterally. no wheezing or rhonchi Cardiovascular: regular rate and rhythm, no obvious murmurs Gastrointestinal: soft, nontender to palpation, bowel sounds heard. Neurological: Moves all extremities spontaneously Skin: No new skin lesions Results Results 24hrs Laboratory Tests Test 07/29/18 05:04 Prealbumin 15.8 L Medications Medication Current Medications Nalbuphine HCl (Nubain) 10 mg Q4H PRN IV .PRURITUS; Start 07/14/18 at 14:30 Ondansetron HCl (Zofran Inj) 4 mg Q6H PRN IV .NAUSEA/VOMITING Last administered on 07/25/18at 01:15; Admin Dose 4 MG; Start 07/14/18 at 14:30 Naloxone HCl (Narcan) 0.2 mg Q2M PRN IV .RESP RATE; Start 07/14/18 at 14:30 Miscellaneous Information (* Miscellaneous Pharmacy Order) FENTANYL: 20 MCG SPI... GIVEN NEURAXIAL XX ; Start 07/14/18 at 14:30 Diphenhydramine HCl (Benadryl) 25 mg Q6H PRN IV ITCHING; Start 07/14/18 at 16:00 Pantoprazole (Protonix Tab) 40 mg DAILY@06 PO Last administered on 07/29/18at 06:12; Admin Dose 40 MG; Start 07/15/18 at 06:00 Enoxaparin Sodium (Lovenox) 30 mg DAILY@07 SC Last administered on 07/29/18at 06:44; Admin Dose 30 MG; Start 07/15/18 at 12:00 Bupropion HCl (Wellbutrin Sr) 150 mg DAILY PO Last administered on 07/29/18at 08:25; Admin Dose 150 MG; Start 07/15/18 at 09:00 Cholecalciferol (Vitamin D) 1,000 unit DAILY PO Last administered on 07/29/18 08:22; Admin Dose 1,000 UNIT; Start 07/15/18 at 09:00 Cyanocobalamin (Vitamin B12) 1,500 mcg DAILY PO Last administered on 07/29/18 08:22; Admin Dose 1,500 MCG; Start 07/15/18 at 09:00 Escitalopram Oxalate (Lexapro) 10 mg DAILY PO Last administered on 07/29/18 08:22; Admin Dose 10 MG; Start 07/14/18 at 22:00 Levothyroxine Sodium (Synthroid) 75 mcg BEFORE BREAKFAST PO Last administered on 07/29/18 06:12; Admin Dose 75 MCG; Start 07/15/18 at 07:00 Loratadine (Claritin) 10 mg DAILY PO Last administered on 07/29/18 08:23; Admin Dose 10 MG; Start 07/15/18 at 09:00 Losartan Potassium (Cozaar) 50 mg DAILY PO Last administered on 07/29/18 08:25; Admin Dose 50 MG; Start 07/15/18 at 09:00 Niacin (Niacin) 500 mg BID PO Last administered on 07/29/18 08:24; Admin Dose 500 MG; Start 07/14/18 at 21:00 Oxycodone/ Acetaminophen (Percocet (5/ 325)) 1 tab Q4H PRN PO PAIN Last administered on 07/26/18 13:52; Admin Dose 1 TAB; Start 07/15/18 at 07:30 Prednisone (Prednisone) 5 mg DAILY PO Last administered on 07/29/18 08:35; Admin Dose 5 MG; Start 07/15/18 at 09:00 Prednisone (Prednisone) 3 mg DAILY PO Last administered on 07/29/18 08:40; Admin Dose 3 MG; Start 07/15/18 at 09:00 Ferrous Sulfate (Ferrous Sulfate (Ec)) 325 mg DAILY PO Last administered on 07/18/18 09:10; Admin Dose 325 MG; Start 07/18/18 at 09:00; Status Hold Phenol (Cepastat Lozenge) 1 lozenge Q1H PRN MT cough Last administered on 07/18/18 19:53; Admin Dose 1 LOZENGE; Start 07/17/18 at 17:30 Acetaminophen (Tylenol Tab) 650 mg Q6H PRN PO MILD PAIN(1-3)OR ELEVATED TEMP Last administered on 07/28/18 04:43; Admin Dose 650 MG; Start 07/18/18 at 06:00 Sucralfate (Carafate Susp) 1 gm QID PO Last administered on 07/29/18 07:36; Admin Dose 1 GM; Start 07/22/18 at 13:00 Metoclopramide HCl (Reglan) 10 mg Q6H PRN IV nausea/vomiting Last administered on 07/25/18 01:15; Admin Dose 10 MG; Start 07/22/18 at 17:30 Metoprolol Tartrate (Lopressor) 25 mg BID PO Last administered on 07/29/18 08:23; Admin Dose 25 MG; Start 07/24/18 at 21:00 Magnesium Hydroxide (Milk Of Mag) 30 ml BID PRN PO CONSTIPATION Last administered on 07/24/18at 22:46; Admin Dose 30 ML; Start 07/24/18 at 22:30 Docusate Sodium (Colace) 100 mg BID PO Last administered on 07/29/18 08:24; Admin Dose 100 MG; Start 07/25/18 at 09:30 Senna/Docusate Sodium (Senokot-S) 1 tab DAILY PRN PO constipation; Start 07/26/18 at 10:30 Amoxicillin/ Clavulanate Potassium (Augmentin) 875 mg BID PO Last administered on 07/29/18 08:23; Admin Dose 875 MG; Start 07/27/18 at 21:00; Stop 07/31/18 at 20:59 FATUMA KEARNS MD Jul 29, 2018 08:45
--- NOTE | 2018-07-29 10:29 | PDOCDIS ---
Discharge Instructions DIAGNOSIS Discharge Diagnosis 1. Iron deficiency anemia 2. Rheumatoid arthritis- stable 3. Acute sigmoid diverticulitis with stricture s/p lap sigmoid resection 4. Bullous Pemphigoid 5. HTN 6. Depression 7. Hypothyroidism 8. Allergic rhinitis 9. h/o hydrocephalus s/p shunt 10. R hearing loss 11. GERD CONDITION [id number] Patient Condition: [id number] Stable HOME CARE INSTRUCTIONS: [id number] Diet Instructions: [id number] Low Fat /Cholesterol FOLLOW UP/APPOINTMENTS Follow-up Plan 1. Follow up with your primary care physician in 1-2 weeks 2. Continue all medications as prescribed including Prednisone, Plaquenil and Methotrexate to avoid flares of your rheumatoid arthritis, bullous pemphigoid, and PMR 3. Take iron supplements daily given findings of low iron levels on blood test. If you are not tolerating, take every other day or as tolerated. Increase intake of iron rich foods as well and have your primary care physician monitor you iron levels/hemoglobin 4. If experiencing any concerning symptoms, go to your closest emergency department 5. Call Dr. William's office to schedule a follow up appointment in 10-14 days 6. Take Tylenol as needed for abdominal pain or discomfort FATUMA KEARNS MD Jul 29, 2018 10:29
[2018-07-29 12:01] VITALS: PULSE 75
[2018-07-29 12:06] VITALS: BP 95/55; PULSE 64; RESP 20
--- NOTE | 2018-07-29 14:31 | CONS ---
Assessment/Plan Assessment/Plan Hospital Course (Demo Recall) Patient is sleeping looks comfortable no fevers overnight. WBC 14.7 neutrophils 73.3 BUN 10 creatinine 0.56 Antimicrobials: Augmentin Physical examination: Well-nourished fragile obese elderly woman who is in no distress. Head atraumatic normocephalic sclera nonicteric. Neck is supple armin st rise symmetrical breath sounds diminished bases. Heart: S1-S2. Abdomen obese, soft bowel sounds present. Extremities without cyanosis. Assessment: 1. Systemic inflammatory response syndrome 2. Urinary tract infection as per urinalysis, possible retention 3. Status post diverticular resection secondary to diverticulitis 07/14/18 4. Coronary artery disease 5. Rheumatoid arthritis, on chronic prednisone Plan: Remains stable, continue present care, abx for couple more days, dc planning to SNF Consultation Date/Type/Reason Admit Date/Time Jul 14, 2018 at 10:14 Initial Consult Date 07/22/18 Type of Consult id Requesting Provider: TIM PORTILLO Date/Time of Note DATE: 07/29/18 TIME: 14:31 Exam/Review of Systems Exam Vitals Vital Signs Date Temp Pulse Resp B/P (MAP) Pulse Ox O2 O2 Flow FiO2 Time Delivery Rate 07/29/18 97.8 64 20 95/55 (68) 98 Room Air 12:06 Intake and Output 07/28/18 07/28/18 07/29/18 1414:59 22:59 06:59 IntakeIntake Total 860 ml 400 ml BalanceBalance 860 ml 400 ml Results Result Diagram: 07/29/18 1001 07/29/18 1001 Results 24hrs Laboratory Tests Test 07/29/18 05:04 07/29/18 10:01 Prealbumin 15.8 L White Blood Count 14.7 #H Red Blood Count 3.34 L Hemoglobin 10.4 L Hematocrit 32.8 L Mean Corpuscular Volume 98.2 Mean Corpuscular Hemoglobin 31.1 Mean Corpuscular Hemoglobin Concent 31.7 L Red Cell Distribution Width 17.9 H Platelet Count 494 H Mean Platelet Volume 9.6 Immature Granulocytes % 4.600 H Neutrophils % 73.3 Lymphocytes % 10.0 L Monocytes % 10.0 Eosinophils % 1.4 Basophils % 0.7 Nucleated Red Blood Cells % 0.0 Immature Granulocytes # 0.680 H Neutrophils # 10.8 H Lymphocytes # 1.5 Monocytes # 1.5 H Eosinophils # 0.2 Basophils # 0.1 Nucleated Red Blood Cells # 0.0 Sodium Level 134 L Potassium Level 3.9 Chloride Level 96 L Carbon Dioxide Level 27 Anion Gap 11 Blood Urea Nitrogen 10 Creatinine 0.56 Glucose Level 87 Calcium Level 8.8 Phosphorus Level 2.9 Albumin 3.2 L Medications Medication Current Medications Nalbuphine HCl (Nubain) 10 mg Q4H PRN IV .PRURITUS; Start 07/14/18 at 14:30 Ondansetron HCl (Zofran Inj) 4 mg Q6H PRN IV .NAUSEA/VOMITING Last administered on 07/25/18 01:15; Admin Dose 4 MG; Start 07/14/18 at 14:30 Naloxone HCl (Narcan) 0.2 mg Q2M PRN IV .RESP RATE; Start 07/14/18 at 14:30 Miscellaneous Information (* Miscellaneous Pharmacy Order) FENTANYL: 20 MCG SPI... GIVEN NEURAXIAL XX ; Start 07/14/18 at 14:30 Diphenhydramine HCl (Benadryl) 25 mg Q6H PRN IV ITCHING; Start 07/14/18 at 16:00 Pantoprazole (Protonix Tab) 40 mg DAILY@06 PO Last administered on 07/29/18 06:12; Admin Dose 40 MG; Start 07/15/18 at 06:00 Enoxaparin Sodium (Lovenox) 30 mg DAILY@07 SC Last administered on 07/29/18 06:44; Admin Dose 30 MG; Start 07/15/18 at 12:00 Bupropion HCl (Wellbutrin Sr) 150 mg DAILY PO Last administered on 07/29/18 08 :25; Admin Dose 150 MG; Start 07/15/18 at 09:00 Cholecalciferol (Vitamin D) 1,000 unit DAILY PO Last administered on 07/29/18 08:22; Admin Dose 1,000 UNIT; Start 07/15/18 at 09:00 Cyanocobalamin (Vitamin B12) 1,500 mcg DAILY PO Last administered on 07/29/18 08:22; Admin Dose 1,500 MCG; Start 07/15/18 at 09:00 Escitalopram Oxalate (Lexapro) 10 mg DAILY PO Last administered on 07/29/18 08:22; Admin Dose 10 MG; Start 07/14/18 at 22:00 Levothyroxine Sodium (Synthroid) 75 mcg BEFORE BREAKFAST PO Last administered on 07/29/18 06:12; Admin Dose 75 MCG; Start 07/15/18 at 07:00 Loratadine (Claritin) 10 mg DAILY PO Last administered on 07/29/18 08:23; Admin Dose 10 MG; Start 07/15/18 at 09:00 Losartan Potassium (Cozaar) 50 mg DAILY PO Last administered on 07/29/18 08:25; Admin Dose 50 MG; Start 07/15/18 at 09:00 Niacin (Niacin) 500 mg BID PO Last administered on 07/29/18 08:24; Admin Dose 500 MG; Start 07/14/18 at 21:00 Oxycodone/ Acetaminophen (Percocet (5/ 325)) 1 tab Q4H PRN PO PAIN Last administered on 07/26/18 13:52; Admin Dose 1 TAB; Start 07/15/18 at 07:30 Prednisone (Prednisone) 5 mg DAILY PO Last administered on 07/29/18 08:35; Admin Dose 5 MG; Start 07/15/18 at 09:00 Prednisone (Prednisone) 3 mg DAILY PO Last administered on 07/29/18 08:40; Admin Dose 3 MG; Start 07/15/18 at 09:00 Ferrous Sulfate (Ferrous Sulfate (Ec)) 325 mg DAILY PO Last administered on 07/18/18 09:10; Admin Dose 325 MG; Start 07/18/18 at 09:00; Status Hold Phenol (Cepastat Lozenge) 1 lozenge Q1H PRN MT cough Last administered on 07/18/18 19:53; Admin Dose 1 LOZENGE; Start 07/17/18 at 17:30 Acetaminophen (Tylenol Tab) 650 mg Q6H PRN PO MILD PAIN(1-3)OR ELEVATED TEMP Last administered on 07/28/18 04:43; Admin Dose 650 MG; Start 07/18/18 at 06:00 Sucralfate (Carafate Susp) 1 gm QID PO Last administered on 07/29/18 12:23; Admin Dose 1 GM; Start 07/22/18 at 13:00 Metoclopramide HCl (Reglan) 10 mg Q6H PRN IV nausea/vomiting Last administered on 07/25/18 01:15; Admin Dose 10 MG; Start 07/22/18 at 17:30 Metoprolol Tartrate (Lopressor) 25 mg BID PO Last administered on 07/29/18 08: 23; Admin Dose 25 MG; Start 07/24/18 at 21:00 Magnesium Hydroxide (Milk Of Mag) 30 ml BID PRN PO CONSTIPATION Last administered on 07/24/18at 22:46; Admin Dose 30 ML; Start 07/24/18 at 22:30 Docusate Sodium (Colace) 100 mg BID PO Last administered on 07/29/18 08:24; Admin Dose 100 MG; Start 07/25/18 at 09:30 Senna/Docusate Sodium (Senokot-S) 1 tab DAILY PRN PO constipation; Start 07/26/18 at 10:30 Amoxicillin/ Clavulanate Potassium (Augmentin) 875 mg BID PO Last administered on 07/29/18 08:23; Admin Dose 875 MG; Start 07/27/18 at 21:00; Stop 07/31/18 at 20:59 HOLA LANDEROS NP Jul 29, 2018 14:31
--- NOTE | 2018-07-29 19:54 | DS ---
Date/Time of Note Date/Time of Note DATE: 07/29/18 TIME: 19:54 Discharge Summary Admission/Discharge Info Admit Date/Time Jul 14, 2018 at 10:14 Discharge Date/Time Jul 29, 2018 at 15:30 Discharge Diagnosis 1. Iron deficiency anemia 2. Rheumatoid arthritis- stable 3. Acute sigmoid diverticulitis with stricture s/p lap sigmoid resection 4. Bullous Pemphigoid 5. HTN 6. Depression 7. Hypothyroidism 8. Allergic rhinitis 9. h/o hydrocephalus s/p shunt 10. R hearing loss 11. GERD Patient Condition: Stable Procedures Date/Time of Note Date/Time of Note DATE: 07/14/18 TIME: 15:32 Operative Report Preoperative Diagnosis Sigmoid stricture with history of colitis Postoperative Diagnosis Sigmoid diverticulitis w/ sigmoid narrowing and inflammation into mesentary and pelvis Operation/Procedure Performed Laparoscopic -assisted LAR, with proctosigmoidoscopy Hx of Present Illness 77 yo F with PMH Rheumatoid arthritis on chronic steroids and methotrexate, HTN, hypothyroid, depression, diverticula disease presented to [facility] for elective sigmoid resection secondary to sigmoid stricture with history of colitis. Internal medicine was consulted for assistance with management of chronic medical conditions. Patient has been experiencing GI issues for the past 2 months and underwent uneventful laparoscopic sigmoid resection. Hospital Course Patient was admitted for postoperative monitoring after under going elective laparoscopic sigmoid resection. Patients was doing well for a few days with improvement in abdominal pain and tolerance of PO intake. She was found to have a decrease in hemoglobin levels, requiring PRBC transfusion. Following transfusion, patient was experiencing nausea with vomiting and diminished bowel function. Imaging studies were performed which were negative for obstructions. Patient was kept NPO and given a short term bowel rest. Patient was noted with questionable arrhythmia on exam and transferred to telemetry with evaluation by Cardiology. Magnesium was replaced and adjustment of bronchodilators were made with improvement in cardiac arrhythmias. Patients abdominal pain improved and function slowly returned. Patient was passing BM after given stool softeners and was tolerating PO intake without any further episodes of nausea with vomiting. Patient was found with UTI as well and ID was consulted for antibiotic recommendations. Patient progressed well during hospitalization but given her prolonged hospital course, recommendations were made for SNF placement. On day of discharge, she was cleared by General Surgery, vitals re mained stable, physical exam was within normal limits, and presenting symptoms improved significantly. Patient was discharged to SNF in stable condition. Home Meds Active Scripts Ferrous Sulfate* (Ferrous Sulfate*) 325 Mg Tabec, 325 MG PO DAILY for 30 Days, #30 TAB Prov:FATUMA KEARNS MD 07/17/18 Reported Medications Loratadine* (Loratadine*) 10 Mg Tablet, 10 MG PO DAILY, #30 TAB 07/14/18 Cyanocobalamin* (Vitamin B12*) 500 Mcg Tab, 1500 MCG PO DAILY, TAB 07/14/18 Niacin* (Niacin*) 500 Mg Tablet, 500 MG PO BID, TAB 07/14/18 Cholecalciferol* (Vitamin D3*) 1,000 Unit Tablet, 1000 UNIT PO DAILY, TAB 07/14/18 Acetaminophen* (Acetaminophen*) 650 Mg Tablet, 650 MG PO DAILY PRN for PAIN, #30 TAB 07/14/18 Methotrexate* (Methotrexate*) 2.5 Mg Tab, 7.5 MG PO EVERY SATURDAY, TAB 07/14/18 Hydroxychloroquine Sulfate* (Plaquenil*) 200 Mg Tab, 300 MG PO DAILY, TAB 07/14/18 Prednisone* (Prednisone*) 1 Mg Tablet, 8 MG PO DAILY, TAB 07/14/18 Escitalopram Oxalate* (Lexapro*) 10 Mg Tablet, 10 MG PO DAILY, #30 TAB 07/11/18 Omeprazole* (Omeprazole*) 40 Mg Capsule.dr, 40 MG PO DAILY, #30 CAP 07/11/18 Bupropion Hcl* (Wellbutrin SR*) 150 Mg Tablet.sa, 150 MG PO DAILY, TAB.SA 07/11/18 Levothyroxine Sodium* (Levothyroxine Sodium*) 75 Mcg Tablet, 75 MCG PO BEFORE BREAKFAST, #30 TAB 07/11/18 Losartan Potassium* (Losartan Potassium*) 50 Mg Tablet, 50 MG PO DAILY, TAB 07/11/18 Follow-up Plan 1. Follow up with your primary care physician in 1-2 weeks 2. Continue all medications as prescribed including Prednisone, Plaquenil and Methotrexate to avoid flares of your rheumatoid arthritis, bullous pemphigoid, and PMR 3. Take iron supplements daily given findings of low iron levels on blood test. If you are not tolerating, take every other day or as tolerated. Increase intake of iron rich foods as well and have your primary care physician monitor you iron levels/hemoglobin 4. If experiencing any concerning symptoms, go to your closest emergency department 5. Call Dr. William's office to schedule a follow up appointment in 10-14 days 6. Take Tylenol as needed for abdominal pain or discomfort Primary Care Provider Not On Staff Doctor Time spent on discharge: > 30 minutes Pending Labs Laboratory Tests Test 07/29/18 05:04 07/29/18 10:01 Prealbumin 15.8 mg/dl (17.6-36.0) White Blood Count 14.7 10^3/ul (4.8-10.8) Red Blood Count 3.34 10^6/ul (4.20-5.40) Hemoglobin 10.4 g/dl (12.0-16.0) Hematocrit 32.8 % (37.0-47.0) Mean Corpuscular Volume 98.2 fl (82.0-101.0) Mean Corpuscular Hemoglobin 31.1 pg (29.0-33.0) Mean Corpuscular 31.7 g/dl (32.0-37.0) Hemoglobin Concent Red Cell Distribution Width 17.9 % (11.5-14.5) Platelet Count 494 10^3/UL (140-415) Mean Platelet Volume 9.6 fl (7.4-10.4) Immature Granulocytes % 4.600 % (0.001-0.429) Neutrophils % 73.3 % (39.0-77.0) Lymphocytes % 10.0 % (15.0-51.0) Monocytes % 10.0 % (0.0-11.0) Eosinophils % 1.4 % (0.0-7.0) Basophils % 0.7 % (0.0-2.0) Nucleated Red Blood Cells % 0.0 /100WBC (0.0-0.0) Immature Granulocytes # 0.680 10^3/ul (0.0-0.031) Neutrophils # 10.8 10^3/ul (1.6-7.5) Lymphocytes # 1.5 10^3/ul (0.8-2.9) Monocytes # 1.5 10^3/ul (0.3-0.9) Eosinophils # 0.2 10^3/ul (0.0-0.5) Basophils # 0.1 10^3/ul (0.0-0.1) Nucleated Red Blood Cells # 0.0 10^3/ul (0.0-0.0) Sodium Level 134 mmol/L (135-144) Potassium Level 3.9 mmol/L (3.5-5.1) Chloride Level 96 mmol/L (97-110) Carbon Dioxide Level 27 mmol/L (21-31) Anion Gap 11 (5-13) Blood Urea Nitrogen 10 mg/dl (7-20) Creatinine 0.56 mg/dl (0.44-1.00) Glucose Level 87 mg/dl (70-220) Calcium Level 8.8 mg/dl (8.4-10.2) Phosphorus Level 2.9 mg/dl (2.5-4.9) Albumin 3.2 g/dl (3.3-4.9) FATUMA KEARNS MD Jul 29, 2018 19:54
== END 2018-07-29 15:30 | DRG 330 ==
LOC: REC 10:14 → MS1 18:02 → 6WM 07-22 14:50
PROVIDERS: ADMIT Colon & Rectal Surgery; ATTEND Colon & Rectal Surgery
PROC: 0DBP4ZZ Excision of Rectum, Percutaneous Endoscopic Approach (ICD-10-PCS; 2018-07-14)
PROC: 0WUF47Z Supplement Abdominal Wall with Autologous Tissue Substitute, Percutaneous Endoscopic Approach (ICD-10-PCS; 2018-07-14)
PROC: 0DJD8ZZ Inspection of Lower Intestinal Tract, Via Natural or Artificial Opening Endoscopic (ICD-10-PCS; 2018-07-14)
PROC: 0DBN4ZZ Excision of Sigmoid Colon, Percutaneous Endoscopic Approach (ICD-10-PCS; principal; 2018-07-14 12:30)
PROC: 30233N1 Transfusion of Nonautologous Red Blood Cells into Peripheral Vein, Percutaneous Approach (ICD-10-PCS; 2018-07-17)
DX: K57.32 Diverticulitis of large intestine without perforation or abscess without bleeding (principal); K56.699 Other intestinal obstruction unspecified as to partial versus complete obstruction; L12.0 Bullous pemphigoid; N39.0 Urinary tract infection, site not specified; D62 Acute posthemorrhagic anemia; E87.1 Hypo-osmolality and hyponatremia; I47.1 Supraventricular tachycardia; E03.9 Hypothyroidism, unspecified; M06.9 Rheumatoid arthritis, unspecified; F32.9 Major depressive disorder, single episode, unspecified; I10 Essential (primary) hypertension; H91.91 Unspecified hearing loss, right ear; K21.9 Gastro-esophageal reflux disease without esophagitis; J30.9 Allergic rhinitis, unspecified; R11.2 Nausea with vomiting, unspecified; E83.42 Hypomagnesemia; Z79.52 Long term (current) use of systemic steroids; Z79.899 Other long term (current) drug therapy
CPT/HCPCS: 36430; 71045; 71046; 74018; 74019; 74177; 74250; 80048; 80051; 80053; 80069; 81001; 82962; 83540; 83735; 84100; 84134; 84478; 85014; 85018; 85025; 85610; 86850; 86900; 86901; 86920; 87040; 87086; 88307; 93005; 94640; 94664; 97110; 97116; 97161; 97164; 97530; J0131; J0690; J1100; J1170; J1650; J1720; J1885; J2250; J2370; J2405; J2543; J2765; J2795; J2916; J2930; J3010; J3475; J3480; J7030; J7040; J7120; J7512; P9016; Q9967